=== PATIENT | female | born 1965 | race Caucasian/White ===

== ENCOUNTER → 2016-07-03 | Outpatient (CLI) | payer OTHER ==
[~2016-07-03] MED LIST: AMBIEN5 MG PO; AMOXICILLIN500 MG PO; ANTIVERT25 MG PO; ASPIRIN81 MG PO; BACTRIM DS 8001 TA1 PO; BRIN20TA PO; CELEXA20 MG PO; DAYPRO600 M1 PO; FERRATE325 MG PO; FISH OIL 10001000 MG PO; FLOMAX0.4 MG PO; HYDROCHLOROTH12.5 MG PO; HYDROCODONE BIT1 T11 PO; HYDRODIURIL25 MG PO; LASIX80 MG PO; LISINOPRIL5 MG PO; LOPRESSOR PO; MEDROL DOSEPAK4 MG PO; MIRALAX POWDER17 G1 PO; MOTRIN800 MG PO; PERCOCET 325 MG1 TA6 PO; POTASSIUM CHLO10 MEQ PO; POTASSIUM20 MEQ PO; PRILOSEC40 MG PO; PYRIDIUM100 MG PO; PYRIDIUM200 MG PO; ROBAXIN750 MG PO; ROBITUSSIN AC 10 MG/ PO; VIBRAMYCIN100 MG PO; VICO75300 PO; Wellbutrin Xl150 MG PO; XANAX1 MG PO; ZITHROMAX250 MG PO; ZOFRAN ODT4 MG SL; ZOFRAN4 MG PO; ZOLPIDEM10 M1 PO; [UNRECOGNIZED DRUG - REMARK]
[2016-07-03 15:01] LABS: BASO # 0.1 10*3/uL (0.0-0.1); BASO % 0.6 % (0.0-1.0); EOS # 0.2 10*3/uL (0.0-0.4); EOS % 1.6 % (1.0-4.0); HEMATOCRIT 45.8 % (37.0-47.0); HEMOGLOBIN 14.5 g/dl (12.0-16.0); IG # 0.1 10*3/uL (0.0-0.1); LYMPH # 2.7 10*3/uL (1.3-4.4); LYMPH % 24.9 % (27.0-41.0); MEAN CELL VOLUME 85.1 fl (81.0-99.0); MEAN CORPUSCULAR HGB CONC 31.7 g/dl (33.0-37.0); MEAN PLATELET VOLUME 9.7 fl (9.6-12.3); MONO # 0.8 10*3/uL (0.1-1.0); MONO % 7.1 % (3.0-9.0); NEUT # 7.1 10*3/uL (2.3-7.9); NEUT % 65.3 % (47.0-73.0); PLATELET COUNT AUTOMATED 302 10*3/uL (130-400); RED BLOOD COUNT 5.38 10*6/uL (4.10-5.10); RED CELL DISTRI WIDTH 14.7 % (0-14.5); WHITE BLOOD COUNT 10.8 10*3/uL (4.8-10.8)
[2016-07-03 15:03] LABS: HEMOGLOBIN A1c 5.2 % (4.8-5.6)
[2016-07-03 15:28] LABS: ALBUMIN 3.3 gm/dl (3.1-4.5); ALKALINE PHOSPHATASE 108 U/L (45-117); BILIRUBIN, TOTAL 0.3 mg/dl (0.2-1.0); BUN 8 mg/dl (7-24); CARBON DIOXIDE 27 mmol/L (21-32); CHLORIDE 105 mmol/L (98-107); EST GLOM FILT AFRICAN AMERICAN > 60 ml/min; GLUCOSE 84 mg/dL (65-99); IRON 59 ug/dL (50-170); IRON SATURATION 16 %; SGOT/AST 15 IU/L (3-35); SGPT/ALT 25 U/L (12-78); SODIUM 143 mmol/L (136-145); THYROID STIM HORMONE (HS) 0.884 uIU/ml (0.358-4.75); TOTAL PROTEIN 7.2 gm/dL (6.4-8.2); UIBC 309 ug/dL (110-365)
[2016-07-03 15:35] LABS: VITAMIN D, 25-HYDROXY 27.6 ng/mL (30-100)
[2016-07-03 15:38] LABS: FOLIC ACID > 24.00 ng/mL (>5.38)
== END | disposition home or self-care (01) ==
LOC: LAB 14:04
PROVIDERS: Surgery
DX: E66.01 Morbid (severe) obesity due to excess calories (principal)

== ENCOUNTER → 2016-12-02 | Outpatient (CLI) | payer OTHER | END | disposition home or self-care (01) | LOC: CARD 13:36 | DX: Z01.818 Encounter for other preprocedural examination (principal) ==

== ENCOUNTER → 2017-01-26 | Outpatient (CLI) | payer OTHER ==
[2017-01-27 07:05] LABS: HEPATITIS C VIRUS ANTIBODY 0.2 s/co (0.0-0.9)
[2017-01-28 01:06] LABS: LUPUS DRVVT 52.2 sec (0.0-47.0); PTT-LA 38.4 sec (0.0-51.9)
== END | disposition home or self-care (01) ==
LOC: LAB 12:55
PROVIDERS: Nurse Practitioner Family
DX: K76.9 Liver disease, unspecified (principal); R53.83 Other fatigue

== ENCOUNTER → 2017-02-11 | Outpatient (CLI) | payer OTHER | END | disposition home or self-care (01) | LOC: LAB 14:37 | DX: I10 Essential (primary) hypertension (principal); K76.9 Liver disease, unspecified ==

== ENCOUNTER → 2017-02-17 | Outpatient (CLI) | payer OTHER ==
[2017-02-17 14:08] LABS: BASO % 0.4 % (0.0-1.0); EOS # 0.2 10*3/uL (0.0-0.4); EOS % 1.7 % (1.0-4.0); HEMATOCRIT 42.5 % (37.0-47.0); HEMOGLOBIN 13.6 g/dl (12.0-16.0); LYMPH # 3.2 10*3/uL (1.3-4.4); LYMPH % 28.7 % (27.0-41.0); MEAN CELL VOLUME 83.8 fl (81.0-99.0); MEAN CORPUSCULAR HGB 26.8 pg (27.0-31.0); MEAN PLATELET VOLUME 9.5 fl (9.6-12.3); MONO # 0.8 10*3/uL (0.1-1.0); MONO % 7.2 % (3.0-9.0); NEUT # 6.9 10*3/uL (2.3-7.9); NEUT % 61.4 % (47.0-73.0); PLATELET COUNT AUTOMATED 291 10*3/uL (130-400); RED BLOOD COUNT 5.07 10*6/uL (4.10-5.10); RED CELL DISTRI WIDTH 15.7 % (0-14.5); WHITE BLOOD COUNT 11.2 10*3/uL (4.8-10.8)
== END | disposition home or self-care (01) ==
LOC: LAB 13:41
PROVIDERS: Internal Medicine Hematology & Oncology
DX: D72.829 Elevated white blood cell count, unspecified (principal)

== ENCOUNTER → 2017-04-22 | Outpatient (CLI) | payer OTHER | LOC: RAD 08:15 | DX: M40.294 Other kyphosis, thoracic region (principal); M47.894 Other spondylosis, thoracic region; M75.42 Impingement syndrome of left shoulder; M85.812 Other specified disorders of bone density and structure, left shoulder; M77.8 Other enthesopathies, not elsewhere classified ==

== ENCOUNTER → 2017-06-24 | Outpatient (CLI) | payer OTHER | END | disposition home or self-care (01) | LOC: MAMMO 06-23 15:40 | DX: Z12.31 Encounter for screening mammogram for malignant neoplasm of breast (principal) ==

== ENCOUNTER 2017-10-07 20:20 | Emergency (ER) | payer OTHER ==
[~2017-10-07] VITALS: Wt 103.4 kg
[2017-10-07] MEDS ORDERED: FLONASE ALLERG9.9 ML NAS (20:38)
[2017-10-07] MEDS ORDERED: AUGMENTIN 875875 MG PO (20:38)
== END 2017-10-07 20:59 | disposition home or self-care (01) ==
LOC: ED 20:20
DX: J01.10 Acute frontal sinusitis, unspecified (principal); H65.02 Acute serous otitis media, left ear; Z90.49 Acquired absence of other specified parts of digestive tract; Z98.890 Other specified postprocedural states; Z79.82 Long term (current) use of aspirin; Z79.899 Other long term (current) drug therapy; Z88.5 Allergy status to narcotic agent

== ENCOUNTER 2017-10-30 12:08 | Emergency (ER) | payer OTHER ==
[~2017-10-30] VITALS: Ht 154.9 cm; Wt 103.4 kg
[~2017-10-30 12:08] MED LIST changes: +AUGMENTIN 875875 MG PO; +FLONASE ALLERG9.9 ML NAS
[2017-10-30 12:38] LABS: BASO % 0.5 % (0.0-1.0); EOS # 0.2 10*3/uL (0.0-0.4); EOS % 2.2 % (1.0-4.0); HEMATOCRIT 43.1 % (37.0-47.0); HEMOGLOBIN 13.5 g/dl (12.0-16.0); LYMPH # 2.4 10*3/uL (1.3-4.4); LYMPH % 29.4 % (27.0-41.0); MEAN CELL VOLUME 85.7 fl (81.0-99.0); MEAN CORPUSCULAR HGB 26.8 pg (27.0-31.0); MEAN CORPUSCULAR HGB CONC 31.3 g/dl (33.0-37.0); MEAN PLATELET VOLUME 9.3 fl (9.6-12.3); MONO # 0.5 10*3/uL (0.1-1.0); MONO % 6.2 % (3.0-9.0); NEUT % 61.3 % (47.0-73.0); PLATELET COUNT AUTOMATED 221 10*3/uL (130-400); RED BLOOD COUNT 5.03 10*6/uL (4.10-5.10); RED CELL DISTRI WIDTH 15.1 % (0-14.5); WHITE BLOOD COUNT 8.1 10*3/uL (4.8-10.8)
[2017-10-30 12:57] LABS: ALBUMIN 3.7 gm/dl (3.1-4.5); ALKALINE PHOSPHATASE 101 U/L (45-117); BUN 12 mg/dl (7-24); CHLORIDE 102 mmol/L (98-107); CREATININE 0.71 mg/dL (0.55-1.02); POTASSIUM 3.7 mmol/L (3.5-5.1); SGOT/AST 18 IU/L (3-35); SGPT/ALT 23 U/L (12-78); SODIUM 139 mmol/L (136-145); TOTAL PROTEIN 7.2 gm/dL (6.4-8.2)
[2017-10-30 13:01] LABS: TROPONIN I < 0.015 ng/ml (<0.045)
[2017-10-30] MEDS ORDERED: PREDNISONE10 MG PO (13:38)
[2017-10-30] MEDS ORDERED: LEVOFLOXACIN500 MG PO (13:38)
[2017-10-30] MEDS ORDERED: CLARITIN10 MG PO (13:38)
[2017-10-30] MEDS ORDERED: ROBITUSSIN DM 105 ML PO (13:38)
== END 2017-10-30 13:42 | disposition home or self-care (01) ==
LOC: ED 12:08
PROVIDERS: Nurse Practitioner Family
DX: J18.9 Pneumonia, unspecified organism (principal); R03.0 Elevated blood-pressure reading, without diagnosis of hypertension; Z90.49 Acquired absence of other specified parts of digestive tract; Z98.890 Other specified postprocedural states; Z79.899 Other long term (current) drug therapy; Z79.82 Long term (current) use of aspirin; Z88.5 Allergy status to narcotic agent; Z88.8 Allergy status to other drugs, medicaments and biological substances

== ENCOUNTER 2017-11-02 12:44 | Emergency (ER) | payer OTHER ==
[~2017-11-02] VITALS: Ht 154.9 cm; Wt 103.4 kg
[~2017-11-02 12:44] MED LIST changes: +CLARITIN10 MG PO; +LEVOFLOXACIN500 MG PO; +PREDNISONE10 MG PO; +ROBITUSSIN DM 105 ML PO
[2017-11-02 14:03] LABS: BASO # 0.1 10*3/uL (0.0-0.1); BASO % 0.3 % (0.0-1.0); EOS # 0.1 10*3/uL (0.0-0.4); EOS % 0.4 % (1.0-4.0); HEMOGLOBIN 13.4 g/dl (12.0-16.0); LYMPH # 4.2 10*3/uL (1.3-4.4); LYMPH % 25.3 % (27.0-41.0); MEAN CELL VOLUME 85.2 fl (81.0-99.0); MEAN CORPUSCULAR HGB 27.2 pg (27.0-31.0); MEAN CORPUSCULAR HGB CONC 31.9 g/dl (33.0-37.0); MEAN PLATELET VOLUME 9.5 fl (9.6-12.3); MONO # 1.5 10*3/uL (0.1-1.0); MONO % 8.9 % (3.0-9.0); NEUT # 10.7 10*3/uL (2.3-7.9); NEUT % 64.3 % (47.0-73.0); PLATELET COUNT AUTOMATED 253 10*3/uL (130-400); RED BLOOD COUNT 4.93 10*6/uL (4.10-5.10); RED CELL DISTRI WIDTH 15.2 % (0-14.5); WHITE BLOOD COUNT 16.6 10*3/uL (4.8-10.8)
[2017-11-02 14:14] LABS: ALBUMIN 3.6 gm/dl (3.1-4.5); ALKALINE PHOSPHATASE 85 U/L (45-117); BUN 16 mg/dl (7-24); CHLORIDE 104 mmol/L (98-107); CREATININE 0.81 mg/dL (0.55-1.02); SGOT/AST 15 IU/L (3-35); SGPT/ALT 20 U/L (12-78); SODIUM 142 mmol/L (136-145)
[2017-11-02 14:15] LABS: TROPONIN I < 0.015 ng/ml (<0.045)
== END 2017-11-02 15:35 | disposition home or self-care (01) ==
LOC: ED 12:44
PROVIDERS: Emergency Medicine
DX: M54.9 Dorsalgia, unspecified (principal); F10.10 Alcohol abuse, uncomplicated; Z88.8 Allergy status to other drugs, medicaments and biological substances; Z79.82 Long term (current) use of aspirin; Z79.899 Other long term (current) drug therapy; Z90.49 Acquired absence of other specified parts of digestive tract

== ENCOUNTER → 2017-11-10 | Outpatient (CLI) | payer OTHER | LOC: RAD 10:16 | DX: M54.6 Pain in thoracic spine (principal); R07.81 Pleurodynia ==

== ENCOUNTER 2018-02-17 12:15 | Emergency (ER) | payer OTHER ==
[~2018-02-17] VITALS: Wt 110.2 kg
[~2018-02-17 12:15] MED LIST changes: -LISINOPRIL5 MG PO; +ZESTRIL10 MG PO
[2018-02-17] MEDS ORDERED: CEPHALEXIN500 M1 PO (12:56)
== END 2018-02-17 13:39 | disposition home or self-care (01) ==
LOC: ED 12:15
DX: S61.011A Laceration without foreign body of right thumb without damage to nail, initial encounter (principal); Z23 Encounter for immunization; Z88.8 Allergy status to other drugs, medicaments and biological substances; Z79.82 Long term (current) use of aspirin; Z79.899 Other long term (current) drug therapy; Z79.2 Long term (current) use of antibiotics; Z90.49 Acquired absence of other specified parts of digestive tract; W26.9XXA Contact with unspecified sharp object(s), initial encounter; Y93.G1 Activity, food preparation and clean up; Y92.89 Other specified places as the place of occurrence of the external cause; Y99.8 Other external cause status

== ENCOUNTER 2018-05-31 12:25 | Inpatient (IN) | payer OTHER ==
[~2018-05-31] VITALS: Ht 154.9 cm; Wt 126.1 kg
--- NOTE | ~2018-05-31 | EKG ---
[place], [place] ELECTROCARDIOGRAM REPORT NAME: JOE JONES UNIT #: [id number] ROOM: 427 DOCTOR: THANH DRAFT REPORT BIRTHDATE: [birth year] [facility] Test Date: 2018-05-31 Test Time: 12:37:16 Pat Name: JOE JONES Department: Room: 427 Gender: F Legal Support Assistant: SHAKIR : 1965 Requested By: NANCY GAINES Order Number: [id number] Reading MD: Eddie Bess MD Measurements Intervals [place] Rate: 82 P: 10 [place]: 181 QRS: 56 QRSD: 101 T: 56 QT: 398 QTc: 465 Interpretive Statements Sinus rhythm Electronically Signed On 05-31-2018 16:59:31 PST by Eddie Bess MD CM:EKGRPT:ELECTROCARDIOGRAM REPORT [id number] NANCY MIRANDA DRAFT REPORT NANCY GAINES DO
--- NOTE | ~2018-05-31 | CON ---
[place], [place] REPORT OF CONSULTATION NAME: JOE JONES UNIT #: [id number] ROOM: 427 DOCTOR: AMI VITAL MD BIRTHDATE: [birth year] DOS: 06/01/2018 REASON FOR CONSULTATION: Lightheadedness, near-syncope and chest discomfort. HISTORY OF PRESENT ILLNESS: The patient is a 53-year-old woman who has risk factors of hypertension, hyperlipidemia and previous cigarette abuse, but no history of significant coronary artery disease. 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 She stated that she felt a fluttering sensation in her chest, associated with a feeling of lightheadedness and dissociation from her surroundings. She felt that she was weak. She did become nauseous and diaphoretic. The episode lasted several minutes and then resolved spontaneously. She has had similar sensations intermittently over the last several weeks, but never lost consciousness. She has never had chest pain to speak of. She states that these episodes come and go without provocation, and there is nothing that she can do to make them better or worse. On the other hand, she does admit that she has been under considerable stress caring for her son who has medical issues, and when she is most stressed, she is most likely to have these spells. PAST MEDICAL HISTORY: Includes: 1. Hypertension. 2. Hyperlipidemia. 3. Depression. 4. Obesity. 5. Pneumonia. 6. Chronic back pain. 7. Status post cholecystectomy. REVIEW OF SYSTEMS: The patient denies diplopia, loss of vision or focal weakness. She does have the episodes described above where she feels dissociated from her surroundings, but denies loss of consciousness. She denies nausea or vomiting, although she may feel somewhat nauseous during these episodes. She denies fevers, chills, sweats or recent weight change. She denies any hemoptysis or hematemesis. She denies change in bowel or bladder habits, and denies blood in her stools or urine. She denies any skin rashes. She denies peripheral edema. She denies heat or cold intolerance, and denies polyuria or polydipsia. The remainder of the review of systems is negative except as noted above. MEDICATIONS: Prior to admission, alprazolam 1 mg b.i.d. p.r.n. and 1 mg at bedtime, aspirin 81 mg daily, Vraylar 3 mg at bedtime, lisinopril 10 mg at bedtime, meclizine 25 mg t.i.d. p.r.n. vertigo, omeprazole 40 mg daily, temazepam 30 mg at bedtime p.r.n. and Brintellix 20 mg daily. ALLERGIES: She lists allergies to SERTRALINE and MEPERIDINE. FAMILY HISTORY: Negative for early coronary artery disease, although there are family members who have had heart disease. There is a family history of type 2 diabetes mellitus. [place], [place] REPORT OF CONSULTATION NAME: JOE JONES UNIT #: [id number] ROOM: [facility] DOCTOR: AMI VITAL MD BIRTHDATE: [birth year] SOCIAL HISTORY: The patient is a former smoker. She drinks occasionally, but does not use illicit drugs. 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 PHYSICAL EXAMINATION: GENERAL: The patient is an overweight white female who is awake, alert and oriented. VITAL SIGNS: Pulse is 98 and regular, blood pressure is 125/81. She is afebrile. She weighs 126.1 kg and has a body mass index of 52.5. HEENT: Normocephalic and atraumatic. Extraocular muscles are intact. Sclerae are clear. Pupils are equal, round and react to light. The oral mucosa is moist. Tongue is midline. NECK: Supple. She has no jugular distention. Carotids are full. There are no bruits. She has no neck or supraclavicular masses, and no thyromegaly. LUNGS: Respirations are unlabored. Her chest is clear to auscultation and percussion. She has no presacral edema and no chest wall tenderness. CARDIOVASCULAR: Her heart has a regular rhythm. She has a soft S4 gallop, but no S3 or murmur. The PMI is not displaced. There is no precordial heave, lift or thrill. ABDOMEN: Obese, but otherwise benign without masses, tenderness, organomegaly or bruits. EXTREMITIES: Showed no edema. Peripheral pulses were palpable in the feet. LABORATORY DATA: Hemoglobin is 12.9, white count 9600, platelet count 235,000. Sodium 142, potassium 3.9, chloride 109, CO2 of 27, BUN 7, creatinine 0.53. Troponin levels were normal. IMPRESSIONS: 1. Episodic periods of lightheadedness, diaphoresis, nausea and fluttering sensations in her chest with a feeling of dissociation from her surroundings. Most likely, these represent vasovagal episodes. The patient does admit to significant life stresses and that she is most likely to be symptomatic when she is feeling stressed. Cardiac disease such as ischemia seems less likely. Arrhythmias may be contributing, but have not been documented during this hospitalization. 2. Hyperlipidemia. 3. Hypertension. 4. Morbid obesity. PLAN: We will proceed with an echocardiogram and pharmacologic myocardial perfusion study. If no structural or ischemic heart disease is found, then she may be discharged for further evaluation if needed as an outpatient. I would probably consider a 48-hour Holter monitoring and if that is not helpful, then extend it to a 30-day event recorder. At this point, however, I doubt that she has any significant cardiovascular disease. Therefore, risk factor modification only will be recommended. I thank the hospitalist physicians for asking our advice regarding her assessment. [place], [place] REPORT OF CONSULTATION NAME: JOE JONES UNIT #: [id number] ROOM: 427 DOCTOR: AMI VITAL MD BIRTHDATE: [birth year] AMI VITAL MD CM:CONSTR:REPORT OF CONSULTATION 46 06/02/18808 interface
--- NOTE | ~2018-05-31 | EKG ---
[place], [place] ELECTROCARDIOGRAM REPORT NAME: JOE JONES UNIT #: [id number] ROOM: 427 DOCTOR: THANH DRAFT REPORT BIRTHDATE: [birth year] [facility] Test Date: 2018-05-31 Test Time: 18:47:40 Pat Name: JOE JONES Department: Room: 427 Gender: F Transportation Aide: EKG.PA : 1965 Requested By: NANCY GAINES Order Number: [id number] Reading MD: Eddie Bess MD Measurements Intervals [place] Rate: 88 P: 42 [place]: 190 QRS: 63 QRSD: 107 T: 53 QT: 346 QTc: 419 Interpretive Statements Sinus rhythm Compared to ECG 05/31/2018 15:47:44 No significant changes Electronically Signed On 06-01-2018 17:51:00 PST by Eddie Bess MD CM:EKGRPT:ELECTROCARDIOGRAM REPORT [id number] NANCY MIRANDA DRAFT REPORT
--- NOTE | ~2018-05-31 | EKG ---
[place], [place] ELECTROCARDIOGRAM REPORT NAME: JOE JONES UNIT #: [id number] ROOM: 427 DOCTOR: THANH DRAFT REPORT BIRTHDATE: [birth year] [facility] Test Date: 2018-05-31 Test Time: 15:47:44 Pat Name: JOE JONES Department: Room: 427 Gender: F Pre Wave Assembler: EKG.VA : 1965 Requested By: NANCY GAINES Order Number: [id number] Reading MD: Eddie Bess MD Measurements Intervals [place] Rate: 83 P: 33 [place]: 188 QRS: 48 QRSD: 102 T: 52 QT: 397 QTc: 467 Interpretive Statements Sinus rhythm No change from earlier ECG this date Electronically Signed On 05-31-2018 17:13:32 PST by Eddie Bess MD CM:EKGRPT:ELECTROCARDIOGRAM REPORT [id number] NANCY MIRANDA DRAFT REPORT NANCY GAINES DO
--- NOTE | ~2018-05-31 | EKG ---
[place], [place] ELECTROCARDIOGRAM REPORT NAME: JOE JONES UNIT #: [id number] ROOM: 427 DOCTOR: THANH DRAFT REPORT BIRTHDATE: [birth year] [facility] Test Date: 2018-05-31 Test Time: 12:36:14 Pat Name: JOE JONES Department: Room: 427 Gender: F Certified Registered Nurse Practitioner: SHAKIR : 1965 Requested By: NANCY GAINES Order Number: [id number] Reading MD: Eddie Bess MD Measurements Intervals [place] Rate: 82 P: 0 [place]: QRS: 46 QRSD: 106 T: 40 QT: 397 QTc: 464 Interpretive Statements Normal sinus rhythm Marked baseline artifact makes interpretation difficult Baseline wander in lead(s) I,III,aVR,aVL,aVF Electronically Signed On 05-31-2018 16:59:12 PST by Eddie Bess MD CM:EKGRPT:ELECTROCARDIOGRAM REPORT [id number] NANCY MIRANDA DRAFT REPORT NANCY GAINES DO
[~2018-05-31 12:25] MED LIST changes: +CEPHALEXIN500 M1 PO
[2018-05-31 12:37] VITALS: BP 152/88
[2018-05-31 13:00] LABS: BASO % 0.4 % (0.0-1.0); EOS # 0.2 10*3/uL (0.0-0.4); EOS % 2.5 % (1.0-4.0); HEMATOCRIT 39.9 % (37.0-47.0); HEMOGLOBIN 12.7 g/dl (12.0-16.0); LYMPH # 2.2 10*3/uL (1.3-4.4); LYMPH % 25.9 % (27.0-41.0); MEAN CORPUSCULAR HGB 26.7 pg (27.0-31.0); MEAN CORPUSCULAR HGB CONC 31.8 g/dl (33.0-37.0); MEAN PLATELET VOLUME 9.1 fl (9.6-12.3); MONO # 0.6 10*3/uL (0.1-1.0); MONO % 7.4 % (3.0-9.0); NEUT # 5.4 10*3/uL (2.3-7.9); NEUT % 63.3 % (47.0-73.0); PLATELET COUNT AUTOMATED 244 10*3/uL (130-400); RED BLOOD COUNT 4.75 10*6/uL (4.10-5.10); RED CELL DISTRI WIDTH 15.9 % (0-14.5); WHITE BLOOD COUNT 8.5 10*3/uL (4.8-10.8)
[2018-05-31 13:10] LABS: ACT PARTIAL THROMBO TIME 26.4 SECONDS (20.8-31.5); INTERNATIONAL NORM RATIO 0.9 (2.0-3.5)
[2018-05-31 13:16] LABS: ALBUMIN 2.9 gm/dl (3.1-4.5); ALKALINE PHOSPHATASE 109 U/L (45-117); BUN 7 mg/dl (7-24); CHLORIDE 105 mmol/L (98-107); CREATININE 0.68 mg/dL (0.55-1.02); SGOT/AST 14 IU/L (3-35); SGPT/ALT 15 U/L (12-78); SODIUM 138 mmol/L (136-145); TOTAL PROTEIN 6.5 gm/dL (6.4-8.2)
[2018-05-31 13:25] LABS: TROPONIN I < 0.015 ng/ml (<0.045)
[2018-05-31 14:00] VITALS: BP 134/82
[2018-05-31 16:00] VITALS: BP 122/70; BP 138/86
[2018-05-31] MEDS ORDERED: VRAYLAR3 MG PO (16:56)
[2018-05-31] MEDS ORDERED: RESTORIL30 M1 PO (16:57)
[2018-05-31 20:00] VITALS: BP 113/63
[2018-06-01] VITALS: BP 101/55
[2018-06-01 07:25] LABS: BASO # 0.1 10*3/uL (0.0-0.1); BASO % 0.6 % (0.0-1.0); EOS # 0.3 10*3/uL (0.0-0.4); EOS % 2.8 % (1.0-4.0); HEMATOCRIT 41.4 % (37.0-47.0); HEMOGLOBIN 12.9 g/dl (12.0-16.0); LYMPH # 2.1 10*3/uL (1.3-4.4); LYMPH % 22.2 % (27.0-41.0); MEAN CELL VOLUME 84.8 fl (81.0-99.0); MEAN CORPUSCULAR HGB 26.4 pg (27.0-31.0); MEAN CORPUSCULAR HGB CONC 31.2 g/dl (33.0-37.0); MONO # 0.7 10*3/uL (0.1-1.0); NEUT # 6.4 10*3/uL (2.3-7.9); PLATELET COUNT AUTOMATED 235 10*3/uL (130-400); RED BLOOD COUNT 4.88 10*6/uL (4.10-5.10); RED CELL DISTRI WIDTH 16.2 % (0-14.5); WHITE BLOOD COUNT 9.6 10*3/uL (4.8-10.8)
[2018-06-01 07:40] LABS: ALBUMIN 2.8 gm/dl (3.1-4.5); ALKALINE PHOSPHATASE 99 U/L (45-117); BUN 7 mg/dl (7-24); CHLORIDE 109 mmol/L (98-107); CHOLESTEROL 210 mg/dL (<200); CREATININE 0.53 mg/dL (0.55-1.02); HDL CHOLESTEROL 60 mg/dl (40-60); LDL CHOLESTEROL 132 mg/dL (9-159); PHOSPHOROUS 3.6 mg/dL (2.5-4.9); POTASSIUM 3.9 mmol/L (3.5-5.1); SGOT/AST 8 IU/L (3-35); SGPT/ALT 13 U/L (12-78); SODIUM 142 mmol/L (136-145); TOTAL PROTEIN 6.3 gm/dL (6.4-8.2); TRIGLYCERIDES 90 mg/dl (<150); VLDL CHOLESTEROL 18 mg/dL (6-40)
[2018-06-01 07:45] LABS: THYROID STIM HORMONE (HS) 0.688 uIU/ml (0.358-4.75)
[2018-06-01 08:00] VITALS: BP 100/60
[2018-06-01 08:10] LABS: INTERNATIONAL NORM RATIO 0.9 (2.0-3.5)
[2018-06-01 09:16] LABS: VITAMIN D, 25-HYDROXY 21.6 ng/mL (30-100)
[2018-06-01 13:28] VITALS: BP 131/78
[2018-06-01 16:00] VITALS: BP 125/81
== END 2018-06-01 17:06 | disposition home or self-care (01) | DRG 880 ==
LOC: ED 12:25 → EDHOLD 15:12 → 4E 15:12
PROVIDERS: Emergency Medicine; Student in an Organized Health Care Education/Training Program
PROC: 4A02XM4 Measurement of Cardiac Total Activity, External Approach (ICD-10-PCS; principal; 2018-06-01)
PROC: 3E073KZ Introduction of Other Diagnostic Substance into Coronary Artery, Percutaneous Approach (ICD-10-PCS; 2018-06-01)
DX: F41.9 Anxiety disorder, unspecified (principal); E43 Unspecified severe protein-calorie malnutrition; Z68.43 Body mass index [BMI] 50.0-59.9, adult; E78.5 Hyperlipidemia, unspecified; I10 Essential (primary) hypertension; E66.01 Morbid (severe) obesity due to excess calories; G89.29 Other chronic pain; M54.9 Dorsalgia, unspecified; E87.8 Other disorders of electrolyte and fluid balance, not elsewhere classified; E83.41 Hypermagnesemia; F32.9 Major depressive disorder, single episode, unspecified; Z88.8 Allergy status to other drugs, medicaments and biological substances; Z90.49 Acquired absence of other specified parts of digestive tract; Z82.49 Family history of ischemic heart disease and other diseases of the circulatory system; Z87.442 Personal history of urinary calculi; Z87.01 Personal history of pneumonia (recurrent); Z83.3 Family history of diabetes mellitus; Z79.82 Long term (current) use of aspirin

== ENCOUNTER 2018-08-08 11:57 | Emergency (ER) | payer OTHER ==
[~2018-08-08] VITALS: Ht 154.9 cm; Wt 111.6 kg
[~2018-08-08 11:57] MED LIST changes: +RESTORIL30 M1 PO; +VRAYLAR3 MG PO
== END 2018-08-08 14:33 | disposition home or self-care (01) ==
LOC: ED 11:57
DX: M72.2 Plantar fascial fibromatosis (principal); I10 Essential (primary) hypertension; Z88.8 Allergy status to other drugs, medicaments and biological substances; Z79.82 Long term (current) use of aspirin; Z79.899 Other long term (current) drug therapy; Z04.9 Encounter for examination and observation for unspecified reason; Z87.891 Personal history of nicotine dependence

== ENCOUNTER 2019-01-13 05:03 | Emergency (ER) | payer OTHER ==
[~2019-01-13] VITALS: Ht 165.1 cm; Wt 121.1 kg
[2019-01-13] MEDS ORDERED: ONDANSETRON4 MG SL (05:32)
[2019-01-13] MEDS ORDERED: FLONASE ALLERG9.9 ML NAS (05:32)
[2019-01-13] MEDS ORDERED: CLARITIN10 MG PO (05:36)
== END 2019-01-13 05:50 | disposition home or self-care (01) ==
LOC: ED 05:03
DX: R09.81 Nasal congestion (principal); R11.0 Nausea; R53.1 Weakness; R68.83 Chills (without fever); R06.2 Wheezing; E78.5 Hyperlipidemia, unspecified; I10 Essential (primary) hypertension; E66.01 Morbid (severe) obesity due to excess calories; Z87.442 Personal history of urinary calculi; Z79.899 Other long term (current) drug therapy; Z79.82 Long term (current) use of aspirin; Z88.8 Allergy status to other drugs, medicaments and biological substances; Z88.6 Allergy status to analgesic agent; Z87.891 Personal history of nicotine dependence

== ENCOUNTER 2019-07-18 11:07 | Inpatient (IN) | payer OTHER ==
[~2019-07-18] VITALS: Ht 157.4 cm; Wt 103.2 kg
[~2019-07-18 11:07] MED LIST changes: +ONDANSETRON4 MG SL
[2019-07-18 11:20] VITALS: BP 151/99
[2019-07-18 12:17] LABS: BASO # 0.1 10*3/uL (0.0-0.1); BASO % 0.8 % (0.0-1.0); EOS # 0.1 10*3/uL (0.0-0.4); EOS % 1.2 % (1.0-4.0); HEMATOCRIT 46.8 % (37.0-47.0); HEMOGLOBIN 15.1 g/dl (12.0-16.0); LYMPH % 29.8 % (27.0-41.0); MEAN CELL VOLUME 85.6 fl (81.0-99.0); MEAN CORPUSCULAR HGB 27.6 pg (27.0-31.0); MEAN CORPUSCULAR HGB CONC 32.3 g/dl (33.0-37.0); MEAN PLATELET VOLUME 10.3 fl (9.6-12.3); MONO # 0.6 10*3/uL (0.1-1.0); MONO % 8.3 % (3.0-9.0); NEUT # 3.9 10*3/uL (2.3-7.9); NEUT % 59.4 % (47.0-73.0); PLATELET COUNT AUTOMATED 234 10*3/uL (130-400); RED BLOOD COUNT 5.47 10*6/uL (4.10-5.10); RED CELL DISTRI WIDTH 14.1 % (0-14.5); WHITE BLOOD COUNT 6.6 10*3/uL (4.8-10.8)
[2019-07-18 12:26] LABS: ACT PARTIAL THROMBO TIME 30.9 SECONDS (20.0-32.1); INTERNATIONAL NORM RATIO 1.1 (2.0-3.5)
[2019-07-18 12:32] LABS: ALBUMIN 3.6 gm/dl (3.1-4.5); ALKALINE PHOSPHATASE 112 U/L (45-117); BUN 4 mg/dl (7-24); CHLORIDE 109 mmol/L (98-107); CREATININE 0.77 mg/dL (0.55-1.02); POTASSIUM 3.4 mmol/L (3.5-5.1); SGOT/AST 24 IU/L (3-35); SGPT/ALT 26 U/L (12-78); SODIUM 144 mmol/L (136-145)
--- NOTE | 2019-07-18 12:47 | NUR ---
PHYLLIS GIVEN BY LUCINA Olmstead RN
[2019-07-18 12:51] LABS: TROPONIN I < 0.015 ng/ml (<0.045)
[2019-07-18 13:16] LABS: BILIRUBIN NEGATIVE (NEGATIVE); BLOOD TRACE-INTACT (NEGATIVE); CLARITY CLOUDY (CLEAR); COLOR YELLOW (YELLOW); GLUCOSE NEGATIVE (NEGATIVE); KETONE 1+ (NEGATIVE); SPECIFIC GRAVITY 1.015 (1.005-1.030)
[2019-07-18 13:17] LABS: PH 6.5 (5.0-9.0)
[2019-07-18 13:18] LABS: BACTERIA 4+; CALCIUM OXALATE CRYSTALS 1+; LEUKO ESTERASE 3+ (NEGATIVE); NITRITE POSITIVE (NEGATIVE); WBC TNTC wbc/hpf (0-5)
--- NOTE | 2019-07-18 13:41 | NUR ---
PT RESTING IN BED WITH AT BEDSIDE. STATES SHE IS FEELING A LITTLE BETTER. DENIES THE NEED FOR ANYTHING AT THIS TIME. CALL LIGHT WITHIN REACH.
[2019-07-18 14:48] VITALS: BP 145/74
--- NOTE | 2019-07-18 15:12 | NUR ---
[place] 54, admitted to , under the services of SUNDAY Lee DO with a diagnosis of CHEST PAIN, UTI. Chief complaint is MULTIPLE COMPLAINTS. Patient arrived via ambulatory from ER. Monitor applied. Initial assessment completed. Vital signs taken and recorded. SUNDAY LEE DO notified of admission to AST Orders received. See assessment for past medical history, medications and allergies. Patient and/or family oriented to unit. [facility] 43 visitation policy reviewed. Clothing/patient valuable form completed. JAIME RUSSELL.
--- NOTE | 2019-07-18 15:31 | NUR ---
IN TO SEE PATIENT.
[2019-07-18 16:00] VITALS: BP 132/72
[2019-07-18] MEDS ORDERED: XANAX1 MG PO (16:18)
[2019-07-18] MEDS ORDERED: AMITRIPTYLINE150 M1 PO (16:19)
[2019-07-18] MEDS ORDERED: VITAMIN D10000 UNIT PO (16:20)
[2019-07-18] MEDS ORDERED: CYMBALTA60 MG PO (16:21)
[2019-07-18] MEDS ORDERED: ABILIFY10 MG PO (16:21)
--- NOTE | 2019-07-18 19:00 | NUR ---
ASSUMED CARE FOR THIS PT AT THIS TIME. PT RESTING QUIETLY IN BED. DENIES CP/SOB. C/O NAUSEA/GENERAL WEAKNESS/LETHARGY. CALL LIGHT IN REACH.
[2019-07-18 20:00] VITALS: BP 141/73
--- NOTE | 2019-07-18 20:04 | NUR ---
PT MEDICATED W/ZOFRAN FOR C/O NAUSEA. WILL MONITOR FOR EFFECTIVENESS.
--- NOTE | 2019-07-18 20:08 | NUR ---
DR. PEDRO NOTIFIED OF PT'S MED REC UTD AND PT REQUESTING HS MEDS FOR TONIGHT. TO CONTINUE HOME MEDS.
--- NOTE | 2019-07-18 21:36 | NUR ---
PT MEDICATED W/RESTORIL PER REQUEST TO HELP PROMOTE SLEEP. CRACKERS AND PEANUT BUTTER GIVEN TO PT FOR HS SNACK. CALL LIGHT IN REACH.
--- NOTE | 2019-07-18 22:00 | NUR ---
PT STATES THAT ZOFRAN WAS EFFECTIVE FOR NAUSEA.
--- NOTE | 2019-07-18 23:00 | NUR ---
PRN RESTORIL EFFECTIVE. PT RESTING QUIETLY IN BED W/EYES CLOSED.
[2019-07-19] VITALS: BP 147/71
--- NOTE | 2019-07-19 04:29 | NUR ---
24 HR chart check completed.
[2019-07-19 07:06] LABS: BASO % 0.5 % (0.0-1.0); EOS # 0.1 10*3/uL (0.0-0.4); EOS % 2.2 % (1.0-4.0); HEMATOCRIT 40.9 % (37.0-47.0); HEMOGLOBIN 12.9 g/dl (12.0-16.0); LYMPH # 2.3 10*3/uL (1.3-4.4); LYMPH % 34.9 % (27.0-41.0); MEAN CELL VOLUME 86.7 fl (81.0-99.0); MEAN CORPUSCULAR HGB 27.3 pg (27.0-31.0); MEAN CORPUSCULAR HGB CONC 31.5 g/dl (33.0-37.0); MEAN PLATELET VOLUME 10.5 fl (9.6-12.3); MONO # 0.6 10*3/uL (0.1-1.0); MONO % 9.3 % (3.0-9.0); NEUT # 3.4 10*3/uL (2.3-7.9); NEUT % 52.8 % (47.0-73.0); PLATELET COUNT AUTOMATED 199 10*3/uL (130-400); RED BLOOD COUNT 4.72 10*6/uL (4.10-5.10); RED CELL DISTRI WIDTH 13.9 % (0-14.5); WHITE BLOOD COUNT 6.4 10*3/uL (4.8-10.8)
--- NOTE | 2019-07-19 07:30 | NUR ---
PT RESTING IN BED. VOICES NO CONCERNS AT THIS TIME. RESPS EASY AND NON LABORED. NO S/S OF DISTRESS NOTED. VSS. WHITE BOARD UPDATED. CALL LIGHT WITHIN REACH. FAMILY AT BEDSIDE
[2019-07-19 07:41] LABS: ALBUMIN 3.1 gm/dl (3.1-4.5); ALKALINE PHOSPHATASE 91 U/L (45-117); BUN 4 mg/dl (7-24); CHLORIDE 113 mmol/L (98-107); PHOSPHOROUS 3.7 mg/dL (2.5-4.9); POTASSIUM 3.1 mmol/L (3.5-5.1); SGOT/AST 18 IU/L (3-35); SGPT/ALT 22 U/L (12-78); SODIUM 145 mmol/L (136-145); TOTAL PROTEIN 5.8 gm/dL (6.4-8.2)
[2019-07-19 07:48] LABS: FREE T4 0.82 ng/dl (0.76-1.46)
[2019-07-19 07:51] LABS: VITAMIN D, 25-HYDROXY 43.5 ng/mL (30-100)
[2019-07-19 08:00] VITALS: BP 120/78
--- NOTE | 2019-07-19 08:57 | NUR ---
Shift chart check completed.
--- NOTE | 2019-07-19 09:00 | NUR ---
Hydrodynamics Teacher in to talk to patient. Patient states lives at [facility] with and son. There are no steps in the home. Physician: andriy light Pharmacy: [facility] [place] health services: none Patient's level of ADLs: INDEPENDENT Patient has working utilities: all working DME: none Follow-up physician's appointment after d/c: will be made by hospitalist nurse director upon discharge Does patient want to access PORTAL?: no Discharge plan discussed with patient, she states she lives at home with family, she is independent in adls and ambulation, she states she will return home when medically stable and denies any home needs. SHANNA HERRERA
--- NOTE | 2019-07-19 11:55 | NUR ---
Nutritional Support Services Note: Discussed recent gastric bypass surgery and weight loss w/ pt. Encouraged pt to increase fluid intake. Discussed vitamins and recommend liquid multivitmain daily, encouraged small portions, and small high protein PO snacks between meals. Will follow if needed. Encouraged healthy eating. NEFTALI Collins architect internship
[2019-07-19 12:00] VITALS: BP 156/92
--- NOTE | 2019-07-19 14:00 | NUR ---
ASKED PHARMACY TO SEND UP RECEPHIN
--- NOTE | 2019-07-19 14:45 | NUR ---
ASKED PHARMACY AGAIN TO SEND UP GARY
[2019-07-19 16:00] VITALS: BP 137/84
[2019-07-19 20:00] VITALS: BP 132/85
--- NOTE | 2019-07-19 21:13 | NUR ---
MEDICATED WITH RESTORIL FOR INSOMNIA.
[2019-07-20] VITALS: BP 143/83
--- NOTE | 2019-07-20 01:15 | NUR ---
UP WITH ASSISTANCE OF 2 TO BATHROOM. SOMEWHAT UNSTEADY. ASSISTED PATIENT BACK TO BED ASSIST OF 2. BED ALARM PUT ON FOR PT. SAFETY. CALL LIGHT WITHIN REACH.
--- NOTE | 2019-07-20 01:55 | NUR ---
PT. C/O BEING UNABLE TO SLEEP & WANTS TO LEAVE. SPOKE TO PATIENT & CONVINCED HER TO REMAIN IN HOSPITAL UNTIL TOMORROW MORNING. PT. STATED THAT SHE WOULD STAY UNTIL MORNING.
--- NOTE | 2019-07-20 04:00 | NUR ---
RESTING IN BED WITH EYES CLOSED. CALL LIGHT WITHIN REACH.
[2019-07-20 08:00] VITALS: BP 153/75
[2019-07-20] MEDS ORDERED: PRINIVIL10 MG PO (08:00)
[2019-07-20] MEDS ORDERED: CEPHALEXIN500 M1 PO (08:01)
[2019-07-20] MEDS ORDERED: [UNRECOGNIZED DRUG - OTHER] PO (08:05)
--- NOTE | 2019-07-20 09:00 | NUR ---
case management visits with patient, she states she will return home when medically stable and denies any home needs
--- NOTE | 2019-07-20 09:41 | NUR ---
Discharge instructions reviewed with patient/family. Patient receptive and verbalizes understanding. Follow-up care arranged. Written instructions given to patient/family. HISSOM,CHUCHO The Discharge Plan/Instructions have been completed.
== END 2019-07-20 09:41 | disposition home or self-care (01) | DRG 203 ==
LOC: ED 11:07 → 4E 14:20 → EDHOLD 14:20 → 4E 14:47
PROVIDERS: Emergency Medicine; Registered Nurse; ADMIT Family Medicine
DX: R07.89 Other chest pain (principal); E86.0 Dehydration; N30.00 Acute cystitis without hematuria; A08.4 Viral intestinal infection, unspecified; I10 Essential (primary) hypertension; F32.9 Major depressive disorder, single episode, unspecified; E44.0 Moderate protein-calorie malnutrition; E87.6 Hypokalemia; E87.8 Other disorders of electrolyte and fluid balance, not elsewhere classified; E78.5 Hyperlipidemia, unspecified; B96.20 Unspecified Escherichia coli [E. coli] as the cause of diseases classified elsewhere; Z68.41 Body mass index [BMI] 40.0-44.9, adult; Z98.84 Bariatric surgery status; Z88.8 Allergy status to other drugs, medicaments and biological substances; Z90.49 Acquired absence of other specified parts of digestive tract; Z87.891 Personal history of nicotine dependence; Z83.3 Family history of diabetes mellitus; Z82.49 Family history of ischemic heart disease and other diseases of the circulatory system; Z80.8 Family history of malignant neoplasm of other organs or systems; Z79.899 Other long term (current) drug therapy

== ENCOUNTER 2019-09-15 13:53 | Emergency (ER) | payer OTHER ==
[~2019-09-15] VITALS: Ht 154.9 cm; Wt 93.4 kg
[~2019-09-15 13:53] MED LIST changes: +ABILIFY10 MG PO; +AMITRIPTYLINE150 M1 PO; +CYMBALTA60 MG PO; +PRINIVIL10 MG PO; +VITAMIN D10000 UNIT PO; +[UNRECOGNIZED DRUG - OTHER] PO
[2019-09-15 14:45] LABS: BASO % 0.4 % (0.0-1.0); EOS # 0.2 10*3/uL (0.0-0.4); EOS % 2.5 % (1.0-4.0); HEMATOCRIT 45.5 % (37.0-47.0); HEMOGLOBIN 14.9 g/dl (12.0-16.0); LYMPH # 2.5 10*3/uL (1.3-4.4); LYMPH % 27.9 % (27.0-41.0); MEAN CELL VOLUME 82.9 fl (81.0-99.0); MEAN CORPUSCULAR HGB 27.1 pg (27.0-31.0); MEAN CORPUSCULAR HGB CONC 32.7 g/dl (33.0-37.0); MEAN PLATELET VOLUME 10.5 fl (9.6-12.3); MONO # 0.7 10*3/uL (0.1-1.0); MONO % 7.3 % (3.0-9.0); NEUT # 5.5 10*3/uL (2.3-7.9); NEUT % 61.8 % (47.0-73.0); PLATELET COUNT AUTOMATED 269 10*3/uL (130-400); RED BLOOD COUNT 5.49 10*6/uL (4.10-5.10); RED CELL DISTRI WIDTH 14.6 % (0-14.5); WHITE BLOOD COUNT 8.9 10*3/uL (4.8-10.8)
[2019-09-15 14:55] LABS: ACT PARTIAL THROMBO TIME 29.6 SECONDS (20.0-32.1)
[2019-09-15 15:01] LABS: ALKALINE PHOSPHATASE 104 U/L (45-117); BUN 5 mg/dl (7-24); CHLORIDE 110 mmol/L (98-107); CREATININE 0.55 mg/dL (0.55-1.02); LDH 142 U/L (84-246); POTASSIUM 3.2 mmol/L (3.5-5.1); SGOT/AST 19 IU/L (3-35); SGPT/ALT 18 U/L (12-78); SODIUM 142 mmol/L (136-145); TOTAL PROTEIN 6.3 gm/dL (6.4-8.2); TROPONIN I < 0.015 ng/ml (<0.045)
[2019-09-15 16:06] LABS: BILIRUBIN NEGATIVE (NEGATIVE); BLOOD NEGATIVE (NEGATIVE); CLARITY SL CLOUDY (CLEAR); COLOR YELLOW (YELLOW); GLUCOSE NEGATIVE (NEGATIVE); KETONE NEGATIVE (NEGATIVE); LEUKO ESTERASE 1+ (NEGATIVE); NITRITE NEGATIVE (NEGATIVE); SPECIFIC GRAVITY 1.005 (1.005-1.030)
[2019-09-15 16:13] LABS: BACTERIA 2+; CALCIUM OXALATE CRYSTALS TR; EPITHELIAL CELLS 15-20; MUCOUS TRACE; RBC 0-2 rbc/hpf (0-2)
== END 2019-09-15 16:25 | disposition home or self-care (01) ==
LOC: ED 13:53
PROVIDERS: Emergency Medicine
DX: R53.83 Other fatigue (principal); R53.1 Weakness; R42 Dizziness and giddiness; R51 Headache; R11.0 Nausea; E87.6 Hypokalemia; R10.12 Left upper quadrant pain; M54.2 Cervicalgia; R55 Syncope and collapse; M79.603 Pain in arm, unspecified; R39.12 Poor urinary stream; E78.5 Hyperlipidemia, unspecified; I10 Essential (primary) hypertension; Z87.891 Personal history of nicotine dependence; Z79.899 Other long term (current) drug therapy; Z88.8 Allergy status to other drugs, medicaments and biological substances; Z98.84 Bariatric surgery status

== ENCOUNTER 2019-11-05 10:42 | Inpatient (IN) | payer OTHER ==
[2019-11-05] VITALS (7 sets, daily range): BP systolic 121–180; BP diastolic 69–98
[~2019-11-05] VITALS: Ht 154.9 cm; Wt 94.3 kg
[2019-11-05 11:07] LABS: BASO # 0.1 10*3/uL (0.0-0.1); BASO % 0.7 % (0.0-1.0); EOS # 0.2 10*3/uL (0.0-0.4); EOS % 1.8 % (1.0-4.0); HEMATOCRIT 47.4 % (37.0-47.0); LYMPH # 3.1 10*3/uL (1.3-4.4); LYMPH % 26.8 % (27.0-41.0); MEAN CELL VOLUME 85.4 fl (81.0-99.0); MEAN CORPUSCULAR HGB 27.6 pg (27.0-31.0); MEAN CORPUSCULAR HGB CONC 32.3 g/dl (33.0-37.0); MEAN PLATELET VOLUME 9.5 fl (9.6-12.3); MONO # 0.8 10*3/uL (0.1-1.0); MONO % 7.2 % (3.0-9.0); NEUT # 7.4 10*3/uL (2.3-7.9); NEUT % 63.1 % (47.0-73.0); PLATELET COUNT AUTOMATED 349 10*3/uL (130-400); RED BLOOD COUNT 5.55 10*6/uL (4.10-5.10); RED CELL DISTRI WIDTH 16.1 % (0-14.5); WHITE BLOOD COUNT 11.7 10*3/uL (4.8-10.8)
--- NOTE | 2019-11-05 11:20 | NUR ---
PT STATES "MY PAIN IN MY BACK/CHEST HAS EASED UP FROM THE NITRO TAB."
[2019-11-05 11:23] LABS: ALBUMIN 3.6 gm/dl (3.1-4.5); ALKALINE PHOSPHATASE 139 U/L (45-117); BUN 11 mg/dl (7-24); CHLORIDE 111 mmol/L (98-107); CREATININE 0.68 mg/dL (0.55-1.02); POTASSIUM 3.3 mmol/L (3.5-5.1); SGOT/AST 19 IU/L (3-35); SGPT/ALT 32 U/L (12-78); SODIUM 142 mmol/L (136-145)
[2019-11-05 11:28] LABS: TROPONIN I < 0.015 ng/ml (<0.045)
[2019-11-05 11:53] LABS: ACT PARTIAL THROMBO TIME 29.1 SECONDS (20.0-32.1)
[2019-11-05] MEDS ORDERED: HYDROXYZINE PAM50 MG PO (13:01)
[2019-11-05] MEDS ORDERED: VENLAFAXINE HYD75 MG PO (13:02)
--- NOTE | 2019-11-05 13:08 | NUR ---
A 54, admitted to 5E, under the services of SUNDAY Lee DO with a diagnosis of CHEST PAIN. Chief complaint is CHEST PAIN. Patient arrived via bed from ER. Monitor applied. Initial assessment completed. Vital signs taken and recorded. SUNDAY ELE DO notified of admission to the unit. Orders received. See assessment for past medical history, medications and allergies. Patient and/or family oriented to unit. [facility] visitation policy reviewed. Clothing/patient valuable form completed. CECIL JOHN
--- NOTE | 2019-11-05 13:20 | NUR ---
NOTIFIED DR REYNA OF NEW CONSULT FOR CHEST PAIN. ORDER RECIEVED.
--- NOTE | 2019-11-05 13:30 | NUR ---
NOTIFIED DR REILLY OF HOME MED RECONCILIATION.
--- NOTE | 2019-11-05 19:00 | NUR ---
PATIENT VOICED NO COMPLAINTS. NO DISTRESS NOTED. CALL LIGHT WITHIN REACH
--- NOTE | 2019-11-05 20:00 | NUR ---
NO DISTRESS NOTED. PATIENT ASLEEP, EYES CLOSED. RESP ARE ERND ON ROOM AIR. CALL LIGHT WITHIN REACH
--- NOTE | 2019-11-05 20:46 | NUR ---
PATIENT MEDICATED WITH RESTORIL FOR INSOMNIA. WILL MONITOR
[2019-11-06] VITALS: BP 115/74
[2019-11-06 06:27] LABS: BASO # 0.1 10*3/uL (0.0-0.1); BASO % 0.5 % (0.0-1.0); EOS # 0.2 10*3/uL (0.0-0.4); EOS % 1.7 % (1.0-4.0); LYMPH # 3.1 10*3/uL (1.3-4.4); LYMPH % 28.5 % (27.0-41.0); MEAN CELL VOLUME 86.5 fl (81.0-99.0); MEAN CORPUSCULAR HGB 27.6 pg (27.0-31.0); MEAN CORPUSCULAR HGB CONC 31.9 g/dl (33.0-37.0); MEAN PLATELET VOLUME 9.6 fl (9.6-12.3); MONO # 0.8 10*3/uL (0.1-1.0); NEUT # 6.7 10*3/uL (2.3-7.9); NEUT % 61.9 % (47.0-73.0); PLATELET COUNT AUTOMATED 274 10*3/uL (130-400); RED BLOOD COUNT 4.97 10*6/uL (4.10-5.10); RED CELL DISTRI WIDTH 16.2 % (0-14.5); WHITE BLOOD COUNT 10.9 10*3/uL (4.8-10.8)
[2019-11-06 06:49] LABS: ACT PARTIAL THROMBO TIME 29.1 SECONDS (20.0-32.1)
[2019-11-06 06:53] LABS: ALBUMIN 3.1 gm/dl (3.1-4.5); ALKALINE PHOSPHATASE 126 U/L (45-117); BUN 9 mg/dl (7-24); CHLORIDE 109 mmol/L (98-107); CHOLESTEROL 162 mg/dL (<200); CREATININE 0.52 mg/dL (0.55-1.02); FREE T4 1.02 ng/dl (0.76-1.46); HDL CHOLESTEROL 37 mg/dl (40-60); LDL CHOLESTEROL 100 mg/dL (9-159); POTASSIUM 3.7 mmol/L (3.5-5.1); SGOT/AST 17 IU/L (3-35); SGPT/ALT 27 U/L (12-78); SODIUM 143 mmol/L (136-145); TOTAL PROTEIN 6.1 gm/dL (6.4-8.2); TRIGLYCERIDES 125 mg/dl (<150); VLDL CHOLESTEROL 25 mg/dL (6-40)
[2019-11-06 06:58] LABS: THYROID STIM HORMONE (HS) 0.368 uIU/ml (0.358-4.75)
[2019-11-06 07:14] LABS: VITAMIN D, 25-HYDROXY 34.9 ng/mL (30-100)
[2019-11-06 12:00] VITALS: BP 123/72
--- NOTE | 2019-11-06 13:38 | NUR ---
XANAX 1 MG GIVEN FOR C/O ANXIETY.
[2019-11-06 16:00] VITALS: BP 104/59; BP 109/66
[2019-11-06 20:00] VITALS: BP 107/59
--- NOTE | 2019-11-06 20:30 | NUR ---
PATIENT VOICED NO COMPLAINTS. NO OVERT DISTRESS NOTED, RESP ARE EASY AND REGULAR. PATIENT IS AWARE THAT SHE IS NPO AFTER MIDNIGHT. CALL LIGHT WITHIN REACH
--- NOTE | 2019-11-06 21:08 | NUR ---
PATIENT MEDICATED WITH RESTORIL FOR C/O INSOMNIA WILL MONITOR.
[2019-11-07] VITALS: BP 101/60
[2019-11-07 06:30] LABS: BASO # 0.1 10*3/uL (0.0-0.1); BASO % 0.5 % (0.0-1.0); EOS # 0.2 10*3/uL (0.0-0.4); EOS % 1.8 % (1.0-4.0); LYMPH # 3.1 10*3/uL (1.3-4.4); MEAN CORPUSCULAR HGB 28.2 pg (27.0-31.0); MEAN CORPUSCULAR HGB CONC 32.4 g/dl (33.0-37.0); MEAN PLATELET VOLUME 9.8 fl (9.6-12.3); MONO # 0.8 10*3/uL (0.1-1.0); MONO % 8.1 % (3.0-9.0); NEUT # 6.2 10*3/uL (2.3-7.9); PLATELET COUNT AUTOMATED 279 10*3/uL (130-400); RED BLOOD COUNT 4.71 10*6/uL (4.10-5.10); RED CELL DISTRI WIDTH 16.4 % (0-14.5); WHITE BLOOD COUNT 10.4 10*3/uL (4.8-10.8)
[2019-11-07 06:58] LABS: BUN 8 mg/dl (7-24); CHLORIDE 110 mmol/L (98-107); CREATININE 0.59 mg/dL (0.55-1.02); SODIUM 142 mmol/L (136-145)
[2019-11-07 08:00] VITALS: BP 101/54
--- NOTE | 2019-11-07 10:13 | NUR ---
INFORMED CONSENT SIGNED FOR LEXISCAN STRESS TEST WITH DR. REYNA. RESTING EKG NSR HR 91, BP 90/50. PULSE OX 96% AND LUNGS CLEAR BILATERALLY. COMPLETED ONE MINUTE OF LEXISCAN PROTOCOL RECEIVING LEXISCAN 0.4MG OVER 10 SEC[address]DS[address] NO ARRHYTHMIAS OR ST CHANGES NOTED. PT C/O LIGHTHEADEDNESS. LAST RECOVERY HR 118, BP 102/64. WAITING NUCLEAR SCANNING IN STABLE CONDITON.
[2019-11-07 12:00] VITALS: BP 119/88
[2019-11-07] MEDS ORDERED: LISINOPRIL20 MG PO (13:39)
[2019-11-07] MEDS ORDERED: NATURE'S BLEND F1 MG PO (13:41)
--- NOTE | 2019-11-07 15:00 | NUR ---
Discharge instructions reviewed with patient/family. Patient receptive and verbalizes understanding. Follow-up care arranged. Written instructions given to patient/family. TERRIE MARTIN
== END 2019-11-07 15:00 | disposition home or self-care (01) | DRG 198 ==
LOC: ED 10:42 → EDHOLD 12:34 → 5E 12:50
PROVIDERS: Emergency Medicine; Internal Medicine; ADMIT Family Medicine
PROC: 4A02XM4 Measurement of Cardiac Total Activity, External Approach (ICD-10-PCS; principal; 2019-11-07)
PROC: 3E073KZ Introduction of Other Diagnostic Substance into Coronary Artery, Percutaneous Approach (ICD-10-PCS; 2019-11-07)
DX: I20.8 Other forms of angina pectoris (principal); R74.8 Abnormal levels of other serum enzymes; E87.8 Other disorders of electrolyte and fluid balance, not elsewhere classified; E87.6 Hypokalemia; E66.9 Obesity, unspecified; D72.9 Disorder of white blood cells, unspecified; E78.5 Hyperlipidemia, unspecified; I10 Essential (primary) hypertension; F32.9 Major depressive disorder, single episode, unspecified; E55.9 Vitamin D deficiency, unspecified; Z98.84 Bariatric surgery status; Z90.49 Acquired absence of other specified parts of digestive tract; Z98.891 History of uterine scar from previous surgery; Z87.891 Personal history of nicotine dependence; Z82.49 Family history of ischemic heart disease and other diseases of the circulatory system; Z83.3 Family history of diabetes mellitus; Z80.8 Family history of malignant neoplasm of other organs or systems; Z88.8 Allergy status to other drugs, medicaments and biological substances; Z79.899 Other long term (current) drug therapy; Z68.39 Body mass index [BMI] 39.0-39.9, adult

== ENCOUNTER 2019-11-29 11:16 | Inpatient (IN) | payer OTHER ==
[~2019-11-29] VITALS: Ht 154.9 cm; Wt 92.1 kg
[~2019-11-29 11:16] MED LIST changes: +HYDROXYZINE PAM50 MG PO; +LISINOPRIL20 MG PO; +NATURE'S BLEND F1 MG PO; +VENLAFAXINE HYD75 MG PO
[2019-11-29 11:26] VITALS: BP 142/102
[2019-11-29 12:15] LABS: BASO # 0.1 10*3/uL (0.0-0.1); BASO % 0.6 % (0.0-1.0); EOS # 0.1 10*3/uL (0.0-0.4); EOS % 1.1 % (1.0-4.0); HEMATOCRIT 44.7 % (37.0-47.0); LYMPH # 2.3 10*3/uL (1.3-4.4); LYMPH % 18.1 % (27.0-41.0); MEAN CELL VOLUME 87.1 fl (81.0-99.0); MEAN CORPUSCULAR HGB 27.5 pg (27.0-31.0); MEAN CORPUSCULAR HGB CONC 31.5 g/dl (33.0-37.0); MEAN PLATELET VOLUME 9.6 fl (9.6-12.3); MONO # 0.7 10*3/uL (0.1-1.0); MONO % 5.8 % (3.0-9.0); NEUT # 9.4 10*3/uL (2.3-7.9); NEUT % 73.5 % (47.0-73.0); PLATELET COUNT AUTOMATED 316 10*3/uL (130-400); RED BLOOD COUNT 5.13 10*6/uL (4.10-5.10); RED CELL DISTRI WIDTH 15.8 % (0-14.5); WHITE BLOOD COUNT 12.9 10*3/uL (4.8-10.8)
[2019-11-29 12:26] LABS: ACT PARTIAL THROMBO TIME 27.9 SECONDS (20.0-32.1)
[2019-11-29 12:31] LABS: ALBUMIN 3.2 gm/dl (3.1-4.5); ALKALINE PHOSPHATASE 131 U/L (45-117); BUN 25 mg/dl (7-24); CHLORIDE 109 mmol/L (98-107); CREATININE 0.66 mg/dL (0.55-1.02); LIPASE 42 U/L (73-393); POTASSIUM 4.3 mmol/L (3.5-5.1); SGOT/AST 30 IU/L (3-35); SGPT/ALT 34 U/L (12-78); SODIUM 139 mmol/L (136-145); TOTAL PROTEIN 7.3 gm/dL (6.4-8.2); TROPONIN I < 0.015 ng/ml (<0.045)
[2019-11-29 13:46] VITALS: BP 147/91
[2019-11-29 14:25] LABS: BILIRUBIN NEGATIVE (NEGATIVE); BLOOD 3+ (NEGATIVE); CLARITY SL CLOUDY (CLEAR); COLOR YELLOW (YELLOW); GLUCOSE NEGATIVE (NEGATIVE); KETONE NEGATIVE (NEGATIVE); NITRITE NEGATIVE (NEGATIVE); PH 7.5 (5.0-9.0); UROBILINOGEN 0.2 E.U./dl (0.2-1.0)
[2019-11-29 14:26] LABS: BACTERIA TRACE; EPITHELIAL CELLS 31-40; LEUKO ESTERASE 1+ (NEGATIVE); RBC TNTC rbc/hpf (0-2); WBC 51-100 wbc/hpf (0-5)
[2019-11-29 16:00] VITALS: BP 147/100
[2019-11-29] MEDS ORDERED: LISINOPRIL40 MG PO (16:25)
[2019-11-29 20:00] VITALS: BP 127/82
[2019-11-30] VITALS (9 sets, daily range): BP systolic 102–133; BP diastolic 73–92
[2019-11-30 06:10] LABS: BASO # 0.1 10*3/uL (0.0-0.1); BASO % 0.4 % (0.0-1.0); EOS # 0.3 10*3/uL (0.0-0.4); EOS % 2.2 % (1.0-4.0); HEMATOCRIT 40.3 % (37.0-47.0); LYMPH # 3.3 10*3/uL (1.3-4.4); MEAN CORPUSCULAR HGB 27.6 pg (27.0-31.0); MEAN PLATELET VOLUME 9.7 fl (9.6-12.3); MONO # 0.9 10*3/uL (0.1-1.0); MONO % 6.4 % (3.0-9.0); NEUT # 8.7 10*3/uL (2.3-7.9); NEUT % 65.2 % (47.0-73.0); PLATELET COUNT AUTOMATED 266 10*3/uL (130-400); RED BLOOD COUNT 4.53 10*6/uL (4.10-5.10); WHITE BLOOD COUNT 13.3 10*3/uL (4.8-10.8)
[2019-11-30 06:29] LABS: BUN 19 mg/dl (7-24); CHLORIDE 110 mmol/L (98-107); CREATININE 0.75 mg/dL (0.55-1.02); POTASSIUM 4.5 mmol/L (3.5-5.1); SODIUM 142 mmol/L (136-145)
[2019-12-01] VITALS: BP 117/77
[2019-12-01 06:10] LABS: BASO # 0.1 10*3/uL (0.0-0.1); BASO % 0.6 % (0.0-1.0); EOS # 0.5 10*3/uL (0.0-0.4); EOS % 5.6 % (1.0-4.0); HEMATOCRIT 38.1 % (37.0-47.0); LYMPH # 3.1 10*3/uL (1.3-4.4); LYMPH % 34.7 % (27.0-41.0); MEAN CELL VOLUME 87.6 fl (81.0-99.0); MEAN CORPUSCULAR HGB 27.6 pg (27.0-31.0); MEAN CORPUSCULAR HGB CONC 31.5 g/dl (33.0-37.0); MEAN PLATELET VOLUME 9.8 fl (9.6-12.3); MONO # 0.6 10*3/uL (0.1-1.0); MONO % 6.7 % (3.0-9.0); NEUT # 4.5 10*3/uL (2.3-7.9); NEUT % 51.5 % (47.0-73.0); PLATELET COUNT AUTOMATED 259 10*3/uL (130-400); RED BLOOD COUNT 4.35 10*6/uL (4.10-5.10); RED CELL DISTRI WIDTH 15.9 % (0-14.5); WHITE BLOOD COUNT 8.8 10*3/uL (4.8-10.8)
[2019-12-01 06:21] LABS: BUN 11 mg/dl (7-24); CHLORIDE 110 mmol/L (98-107); POTASSIUM 4.6 mmol/L (3.5-5.1); SODIUM 142 mmol/L (136-145)
[2019-12-01 08:00] VITALS: BP 122/75
[2019-12-01 12:00] VITALS: BP 105/70
[2019-12-01 16:00] VITALS: BP 105/64
[2019-12-01 20:00] VITALS: BP 87/58
[2019-12-01 21:02] VITALS: BP 84/60
[2019-12-02] VITALS: BP 90/69
[2019-12-02 06:05] VITALS: BP 100/72
[2019-12-02 06:52] LABS: BASO # 0.1 10*3/uL (0.0-0.1); BASO % 0.6 % (0.0-1.0); EOS # 0.4 10*3/uL (0.0-0.4); HEMATOCRIT 34.9 % (37.0-47.0); LYMPH % 33.6 % (27.0-41.0); MEAN CELL VOLUME 88.4 fl (81.0-99.0); MEAN CORPUSCULAR HGB 27.3 pg (27.0-31.0); MEAN CORPUSCULAR HGB CONC 30.9 g/dl (33.0-37.0); MEAN PLATELET VOLUME 9.9 fl (9.6-12.3); MONO # 0.6 10*3/uL (0.1-1.0); MONO % 6.8 % (3.0-9.0); NEUT # 4.7 10*3/uL (2.3-7.9); NEUT % 53.3 % (47.0-73.0); PLATELET COUNT AUTOMATED 247 10*3/uL (130-400); RED BLOOD COUNT 3.95 10*6/uL (4.10-5.10); RED CELL DISTRI WIDTH 15.9 % (0-14.5); WHITE BLOOD COUNT 8.8 10*3/uL (4.8-10.8)
[2019-12-02 07:22] LABS: BUN 9 mg/dl (7-24); CHLORIDE 111 mmol/L (98-107); CREATININE 0.64 mg/dL (0.55-1.02); POTASSIUM 3.8 mmol/L (3.5-5.1); SODIUM 142 mmol/L (136-145)
[2019-12-02 08:27] VITALS: BP 94/60
[2019-12-02 12:00] VITALS: BP 110/83
[2019-12-02 12:58] VITALS: BP 110/60
[2019-12-02] MEDS ORDERED: Carafate1 GM PO (14:10)
[2019-12-02] MEDS ORDERED: PANTOPRAZOLE SO40 MG PO (14:10)
== END 2019-12-02 15:00 | disposition home or self-care (01) | DRG 241 ==
LOC: ED 11:16 → EDHOLD 14:28 → 4E 14:28
PROVIDERS: Emergency Medicine; Internal Medicine; ADMIT Internal Medicine
PROC: 0DJ08ZZ Inspection of Upper Intestinal Tract, Via Natural or Artificial Opening Endoscopic (ICD-10-PCS; principal; 2019-11-30)
DX: K25.0 Acute gastric ulcer with hemorrhage (principal); R65.10 Systemic inflammatory response syndrome (SIRS) of non-infectious origin without acute organ dysfunction; E87.8 Other disorders of electrolyte and fluid balance, not elsewhere classified; E78.5 Hyperlipidemia, unspecified; F33.9 Major depressive disorder, recurrent, unspecified; E83.41 Hypermagnesemia; I16.0 Hypertensive urgency; D64.9 Anemia, unspecified; R79.9 Abnormal finding of blood chemistry, unspecified; Z90.49 Acquired absence of other specified parts of digestive tract; Z90.721 Acquired absence of ovaries, unilateral; Z87.891 Personal history of nicotine dependence; Z98.84 Bariatric surgery status; Z82.49 Family history of ischemic heart disease and other diseases of the circulatory system; Z83.3 Family history of diabetes mellitus; Z88.8 Allergy status to other drugs, medicaments and biological substances; Z79.899 Other long term (current) drug therapy

== ENCOUNTER 2019-12-03 10:27 | Inpatient (IN) | payer OTHER ==
[~2019-12-03] VITALS: Ht 154.9 cm; Wt 93.7 kg
[~2019-12-03 10:27] MED LIST changes: +Carafate1 GM PO; +LISINOPRIL40 MG PO; +PANTOPRAZOLE SO40 MG PO
[2019-12-03 10:38] VITALS: BP 125/86
[2019-12-03 11:17] LABS: BASO # 0.1 10*3/uL (0.0-0.1); BASO % 0.5 % (0.0-1.0); EOS # 0.2 10*3/uL (0.0-0.4); EOS % 2.6 % (1.0-4.0); HEMATOCRIT 36.3 % (37.0-47.0); LYMPH # 2.4 10*3/uL (1.3-4.4); LYMPH % 25.6 % (27.0-41.0); MEAN CELL VOLUME 87.7 fl (81.0-99.0); MEAN CORPUSCULAR HGB 27.8 pg (27.0-31.0); MEAN CORPUSCULAR HGB CONC 31.7 g/dl (33.0-37.0); MEAN PLATELET VOLUME 9.4 fl (9.6-12.3); MONO # 0.6 10*3/uL (0.1-1.0); MONO % 6.4 % (3.0-9.0); NEUT % 63.8 % (47.0-73.0); PLATELET COUNT AUTOMATED 254 10*3/uL (130-400); RED BLOOD COUNT 4.14 10*6/uL (4.10-5.10); RED CELL DISTRI WIDTH 15.8 % (0-14.5); WHITE BLOOD COUNT 9.4 10*3/uL (4.8-10.8)
[2019-12-03 11:27] LABS: ACT PARTIAL THROMBO TIME 27.3 SECONDS (20.0-32.1)
[2019-12-03 11:31] LABS: ALBUMIN 2.9 gm/dl (3.1-4.5); ALKALINE PHOSPHATASE 113 U/L (45-117); BUN 12 mg/dl (7-24); CHLORIDE 113 mmol/L (98-107); CREATININE 0.58 mg/dL (0.55-1.02); POTASSIUM 3.3 mmol/L (3.5-5.1); SGOT/AST 16 IU/L (3-35); SGPT/ALT 21 U/L (12-78); SODIUM 145 mmol/L (136-145); TOTAL PROTEIN 6.3 gm/dL (6.4-8.2)
[2019-12-03 12:35] VITALS: BP 122/78
[2019-12-03 15:45] VITALS: BP 129/91
[2019-12-03 16:00] VITALS: BP 140/90
[2019-12-03 20:00] VITALS: BP 119/75
[2019-12-04] VITALS: BP 133/77
[2019-12-04 06:06] LABS: BASO # 0.1 10*3/uL (0.0-0.1); BASO % 0.5 % (0.0-1.0); EOS # 0.3 10*3/uL (0.0-0.4); EOS % 3.4 % (1.0-4.0); HEMATOCRIT 36.6 % (37.0-47.0); LYMPH # 3.2 10*3/uL (1.3-4.4); LYMPH % 34.4 % (27.0-41.0); MEAN CELL VOLUME 86.9 fl (81.0-99.0); MEAN CORPUSCULAR HGB 27.6 pg (27.0-31.0); MEAN CORPUSCULAR HGB CONC 31.7 g/dl (33.0-37.0); MEAN PLATELET VOLUME 10.1 fl (9.6-12.3); MONO # 0.6 10*3/uL (0.1-1.0); MONO % 6.8 % (3.0-9.0); NEUT % 53.8 % (47.0-73.0); PLATELET COUNT AUTOMATED 257 10*3/uL (130-400); RED BLOOD COUNT 4.21 10*6/uL (4.10-5.10); RED CELL DISTRI WIDTH 15.9 % (0-14.5); WHITE BLOOD COUNT 9.2 10*3/uL (4.8-10.8)
[2019-12-04 06:24] LABS: BUN 6 mg/dl (7-24); CHLORIDE 108 mmol/L (98-107); CREATININE 0.55 mg/dL (0.55-1.02); POTASSIUM 3.5 mmol/L (3.5-5.1); SODIUM 142 mmol/L (136-145)
[2019-12-04 08:00] VITALS: BP 140/75
[2019-12-04 12:00] VITALS: BP 118/85
[2019-12-04 16:00] VITALS: BP 107/68
[2019-12-04 20:00] VITALS: BP 111/74
[2019-12-05] VITALS: BP 104/62
[2019-12-05 06:20] LABS: BASO # 0.1 10*3/uL (0.0-0.1); BASO % 0.6 % (0.0-1.0); EOS # 0.5 10*3/uL (0.0-0.4); HEMATOCRIT 36.8 % (37.0-47.0); LYMPH % 33.5 % (27.0-41.0); MEAN CELL VOLUME 87.2 fl (81.0-99.0); MEAN CORPUSCULAR HGB 27.7 pg (27.0-31.0); MEAN CORPUSCULAR HGB CONC 31.8 g/dl (33.0-37.0); MEAN PLATELET VOLUME 10.1 fl (9.6-12.3); MONO # 0.7 10*3/uL (0.1-1.0); MONO % 8.1 % (3.0-9.0); NEUT # 4.5 10*3/uL (2.3-7.9); NEUT % 50.9 % (47.0-73.0); PLATELET COUNT AUTOMATED 263 10*3/uL (130-400); RED BLOOD COUNT 4.22 10*6/uL (4.10-5.10); WHITE BLOOD COUNT 8.9 10*3/uL (4.8-10.8)
[2019-12-05 08:00] VITALS: BP 113/63
[2019-12-05 12:00] VITALS: BP 106/64
[2019-12-05 16:00] VITALS: BP 99/65
[2019-12-05 20:00] VITALS: BP 95/59
[2019-12-06] VITALS: BP 90/48
[2019-12-06 06:36] LABS: BASO # 0.1 10*3/uL (0.0-0.1); BASO % 0.7 % (0.0-1.0); EOS # 0.5 10*3/uL (0.0-0.4); EOS % 6.2 % (1.0-4.0); HEMATOCRIT 36.4 % (37.0-47.0); LYMPH # 2.9 10*3/uL (1.3-4.4); LYMPH % 35.4 % (27.0-41.0); MEAN CELL VOLUME 87.9 fl (81.0-99.0); MEAN CORPUSCULAR HGB 27.3 pg (27.0-31.0); MEAN PLATELET VOLUME 9.4 fl (9.6-12.3); MONO # 0.6 10*3/uL (0.1-1.0); MONO % 7.2 % (3.0-9.0); NEUT % 49.9 % (47.0-73.0); PLATELET COUNT AUTOMATED 256 10*3/uL (130-400); RED BLOOD COUNT 4.14 10*6/uL (4.10-5.10); RED CELL DISTRI WIDTH 16.3 % (0-14.5)
[2019-12-06 06:45] LABS: BUN 4 mg/dl (7-24); CHLORIDE 109 mmol/L (98-107); CREATININE 0.57 mg/dL (0.55-1.02); POTASSIUM 3.6 mmol/L (3.5-5.1); SODIUM 144 mmol/L (136-145)
[2019-12-06 08:00] VITALS: BP 115/59
[2019-12-06 12:00] VITALS: BP 103/70
[2019-12-06 16:00] VITALS: BP 84/50
[2019-12-06 20:00] VITALS: BP 92/54
[2019-12-07] VITALS: BP 108/64
[2019-12-07 06:38] LABS: BASO % 0.5 % (0.0-1.0); EOS # 0.4 10*3/uL (0.0-0.4); EOS % 4.9 % (1.0-4.0); HEMATOCRIT 34.5 % (37.0-47.0); LYMPH # 2.7 10*3/uL (1.3-4.4); LYMPH % 35.1 % (27.0-41.0); MEAN CELL VOLUME 87.8 fl (81.0-99.0); MEAN CORPUSCULAR HGB 27.7 pg (27.0-31.0); MEAN CORPUSCULAR HGB CONC 31.6 g/dl (33.0-37.0); MONO # 0.6 10*3/uL (0.1-1.0); MONO % 7.7 % (3.0-9.0); NEUT # 3.9 10*3/uL (2.3-7.9); NEUT % 50.9 % (47.0-73.0); PLATELET COUNT AUTOMATED 276 10*3/uL (130-400); RED BLOOD COUNT 3.93 10*6/uL (4.10-5.10); WHITE BLOOD COUNT 7.7 10*3/uL (4.8-10.8)
[2019-12-07 08:00] VITALS: BP 103/66
[2019-12-07 12:00] VITALS: BP 90/60
[2019-12-07 16:00] VITALS: BP 110/55
[2019-12-07 20:00] VITALS: BP 111/62
[2019-12-08] VITALS: BP 112/71
[2019-12-08 08:00] VITALS: BP 134/80
[2019-12-08 09:19] LABS: BASO % 0.4 % (0.0-1.0); EOS # 0.2 10*3/uL (0.0-0.4); EOS % 2.7 % (1.0-4.0); HEMATOCRIT 35.1 % (37.0-47.0); LYMPH # 2.3 10*3/uL (1.3-4.4); LYMPH % 28.9 % (27.0-41.0); MEAN CELL VOLUME 86.9 fl (81.0-99.0); MEAN CORPUSCULAR HGB CONC 31.1 g/dl (33.0-37.0); MEAN PLATELET VOLUME 9.6 fl (9.6-12.3); MONO # 0.3 10*3/uL (0.1-1.0); MONO % 4.3 % (3.0-9.0); NEUT % 63.2 % (47.0-73.0); PLATELET COUNT AUTOMATED 268 10*3/uL (130-400); RED BLOOD COUNT 4.04 10*6/uL (4.10-5.10); RED CELL DISTRI WIDTH 16.1 % (0-14.5); WHITE BLOOD COUNT 7.9 10*3/uL (4.8-10.8)
[2019-12-08] MEDS ORDERED: REGLAN5 MG PO (10:02)
[2019-12-08] MEDS ORDERED: PANTOPRAZOLE SO40 MG PO (10:02)
[2019-12-08] MEDS ORDERED: ZOFRAN4 MG PO (10:02)
== END 2019-12-08 11:07 | disposition home or self-care (01) | DRG 241 ==
LOC: ED 10:27 → 4E 11:16 → EDHOLD 11:16 → 4E 14:25
PROVIDERS: Emergency Medicine; Internal Medicine; Student in an Organized Health Care Education/Training Program; ADMIT Internal Medicine
DX: K25.0 Acute gastric ulcer with hemorrhage (principal); E87.6 Hypokalemia; E44.0 Moderate protein-calorie malnutrition; I10 Essential (primary) hypertension; K29.70 Gastritis, unspecified, without bleeding; E87.8 Other disorders of electrolyte and fluid balance, not elsewhere classified; D62 Acute posthemorrhagic anemia; E66.9 Obesity, unspecified; Z68.39 Body mass index [BMI] 39.0-39.9, adult; Z71.3 Dietary counseling and surveillance; E78.5 Hyperlipidemia, unspecified; F32.9 Major depressive disorder, single episode, unspecified; E83.41 Hypermagnesemia; Z90.49 Acquired absence of other specified parts of digestive tract; Z88.8 Allergy status to other drugs, medicaments and biological substances; Z98.84 Bariatric surgery status; Z90.721 Acquired absence of ovaries, unilateral; Z87.891 Personal history of nicotine dependence; Z82.49 Family history of ischemic heart disease and other diseases of the circulatory system; Z83.3 Family history of diabetes mellitus; Z80.8 Family history of malignant neoplasm of other organs or systems; Z79.899 Other long term (current) drug therapy

== ENCOUNTER 2019-12-12 03:24 | Observation (INO) | payer OTHER ==
[~2019-12-12] VITALS: Ht 154.9 cm; Wt 94.0 kg
[~2019-12-12 03:24] MED LIST changes: +REGLAN5 MG PO
[2019-12-12 03:29] VITALS: BP 145/96
[2019-12-12 04:09] LABS: BASO # 0.1 10*3/uL (0.0-0.1); BASO % 0.8 % (0.0-1.0); EOS # 0.2 10*3/uL (0.0-0.4); EOS % 3.1 % (1.0-4.0); HEMATOCRIT 35.5 % (37.0-47.0); LYMPH # 2.6 10*3/uL (1.3-4.4); LYMPH % 33.1 % (27.0-41.0); MEAN CELL VOLUME 84.9 fl (81.0-99.0); MEAN CORPUSCULAR HGB 27.3 pg (27.0-31.0); MEAN CORPUSCULAR HGB CONC 32.1 g/dl (33.0-37.0); MEAN PLATELET VOLUME 9.4 fl (9.6-12.3); MONO # 0.6 10*3/uL (0.1-1.0); MONO % 7.3 % (3.0-9.0); NEUT # 4.3 10*3/uL (2.3-7.9); NEUT % 55.2 % (47.0-73.0); PLATELET COUNT AUTOMATED 284 10*3/uL (130-400); RED BLOOD COUNT 4.18 10*6/uL (4.10-5.10); RED CELL DISTRI WIDTH 15.7 % (0-14.5); WHITE BLOOD COUNT 7.8 10*3/uL (4.8-10.8)
[2019-12-12 04:24] LABS: ALBUMIN 2.8 gm/dl (3.1-4.5); ALKALINE PHOSPHATASE 106 U/L (45-117); BUN 5 mg/dl (7-24); CHLORIDE 108 mmol/L (98-107); CREATININE 0.49 mg/dL (0.55-1.02); LIPASE 41 U/L (73-393); POTASSIUM 3.2 mmol/L (3.5-5.1); SGOT/AST 12 IU/L (3-35); SGPT/ALT 15 U/L (12-78); SODIUM 143 mmol/L (136-145); TOTAL PROTEIN 6.2 gm/dL (6.4-8.2)
--- NOTE | 2019-12-12 04:44 | NUR ---
PER PATIENT NAUSEA MEDICATION SEEMED EFFECTIVE AT THIS TIME. PATIENT TRYING TO PROVIDE URINE AT THIS TIME.
[2019-12-12 05:29] LABS: BILIRUBIN NEGATIVE (NEGATIVE); BLOOD TRACE-INTACT (NEGATIVE); CLARITY SL CLOUDY (CLEAR); COLOR YELLOW (YELLOW); GLUCOSE NEGATIVE (NEGATIVE); KETONE NEGATIVE (NEGATIVE)
[2019-12-12 05:30] LABS: LEUKO ESTERASE 1+ (NEGATIVE); NITRITE NEGATIVE (NEGATIVE); UROBILINOGEN 0.2 E.U./dl (0.2-1.0)
[2019-12-12 05:37] LABS: BACTERIA 2+; EPITHELIAL CELLS 21-30
--- NOTE | 2019-12-12 05:57 | NUR ---
PATIENT RESTING QUIETLY IN BED AT THIS TIME WITH EYES CLOSED. RESPIRATIONS EASY, NON-LABORED ON ROOM AIR. NO DISTRESS NOTED. RN WILL CONTINUE TO MONITOR.
[2019-12-12 07:16] VITALS: BP 138/87
--- NOTE | 2019-12-12 07:17 | NUR ---
NURSE TO NURSE REPORT RECEIVED FROM CLAUDIA BOLANOS. VITAL SIGNS DONE.
--- NOTE | 2019-12-12 07:31 | NUR ---
RN ON FLOOR REQUESTED 15 MINUTES BEFORE PT TRANSPORT. WILL PROCEED TO FLOOR AT THAT TIME.
--- NOTE | 2019-12-12 07:45 | NUR ---
Time: 744 A 54 year old FEMALE admitted to under services of NANCY GLASS DO. Pt. arrived via bed from ER. Chief complaint: ABDOMINAL PAIN. PAULINA SPRAGUE
[2019-12-12 08:00] VITALS: BP 120/84
--- NOTE | 2019-12-12 08:25 | NUR ---
PT MEDICATED WITH PRN MORPHINE FOR C/O ABDOMINAL PAIN, SPECIFICALLY HER RUQ. PT RATES PAIN 01/22. WILL MONITOR.
--- NOTE | 2019-12-12 09:00 | NUR ---
Television Engineer in to talk to patient. Patient states lives at home with and son. There are 4 steps in the home. Physician: andriy light Pharmacy: [facility] [place] health services: none Patient's level of ADLs: INDEPENDENT Patient has working utilities: all working DME: none Follow-up physician's appointment after d/c: will be made by hospitalist nurse director upon discharge Does patient want to access PORTAL?: no Discharge plan discussed with patient, she lives at home with and son, she is independent in adls and ambulation, drives, she states she will return home when discharged and denies any home needs, patient states family will transport her home, case management will follow. SHANNA HERRERA
--- NOTE | 2019-12-12 09:00 | NUR ---
PRN MORPHINE EFFECTIVE PER PT.
--- NOTE | 2019-12-12 11:09 | NUR ---
PT RESTING IN BED WITH EYES CLOSED. NO S/S OF DISTRESS NOTED. WILL CONTINUE TO MONITOR.
[2019-12-12 12:00] VITALS: BP 144/84
--- NOTE | 2019-12-12 13:40 | NUR ---
PT MEDICATED WITH PRN MORPHINE AND ZOFRAN FOR C/O ABDOMINAL PAIN THAT RATES 7/10 AND NAUSEA. WILL MONITOR.
--- NOTE | 2019-12-12 14:13 | NUR ---
PRN MEDS EFFECTIVE PER PT.
[2019-12-12 16:00] VITALS: BP 149/90
[2019-12-12 20:00] VITALS: BP 130/87
--- NOTE | 2019-12-12 21:51 | NUR ---
PRN RESTORIL AND ZOFRAN GIVEN PER PT REQUEST FOR NAUSEA AND INSOMNIA. WILL MONIOTR.
--- NOTE | 2019-12-12 22:50 | NUR ---
PATIENT RESTING; PRN MEDS APPEAR EFFECTIVE. RESPS EASY AND REGULAR ON ROOM AIR. CALL LIGHT IN REACH. IVF PER ORDERS.
[2019-12-13] VITALS: BP 125/67
[2019-12-13 06:15] LABS: BASO # 0.1 10*3/uL (0.0-0.1); BASO % 0.8 % (0.0-1.0); EOS # 0.2 10*3/uL (0.0-0.4); EOS % 3.5 % (1.0-4.0); HEMATOCRIT 36.6 % (37.0-47.0); LYMPH # 2.1 10*3/uL (1.3-4.4); LYMPH % 33.5 % (27.0-41.0); MEAN CELL VOLUME 86.3 fl (81.0-99.0); MEAN CORPUSCULAR HGB 27.4 pg (27.0-31.0); MEAN CORPUSCULAR HGB CONC 31.7 g/dl (33.0-37.0); MEAN PLATELET VOLUME 9.7 fl (9.6-12.3); MONO # 0.5 10*3/uL (0.1-1.0); MONO % 7.5 % (3.0-9.0); NEUT # 3.4 10*3/uL (2.3-7.9); NEUT % 53.7 % (47.0-73.0); PLATELET COUNT AUTOMATED 292 10*3/uL (130-400); RED BLOOD COUNT 4.24 10*6/uL (4.10-5.10); RED CELL DISTRI WIDTH 15.6 % (0-14.5); WHITE BLOOD COUNT 6.3 10*3/uL (4.8-10.8)
[2019-12-13 06:29] LABS: ALBUMIN 2.9 gm/dl (3.1-4.5); ALKALINE PHOSPHATASE 130 U/L (45-117); BUN 5 mg/dl (7-24); CHLORIDE 108 mmol/L (98-107); CREATININE 0.59 mg/dL (0.55-1.02); POTASSIUM 3.7 mmol/L (3.5-5.1); SGOT/AST 22 IU/L (3-35); SGPT/ALT 17 U/L (12-78); SODIUM 143 mmol/L (136-145); TOTAL PROTEIN 6.3 gm/dL (6.4-8.2)
[2019-12-13 08:00] VITALS: BP 126/68
--- NOTE | 2019-12-13 10:07 | NUR ---
PATIENT C//O NAUSEA AT THIS TIME AND MEDICATED WITH IV ZOFRAN. WILL MONITOR FOR EFFECTIVENESS.
--- NOTE | 2019-12-13 11:07 | NUR ---
PER PATIENT, PRN MEDICATION HAS BEEN EFFECTIVE.
--- NOTE | 2019-12-13 11:28 | NUR ---
PT CONTINUES TO DENY NEEDS AT HOME ON DISCHARGE. WILL RETURN HOME WITH WHEN MEDICALLY STABLE. WILL CONTINUE TO FOLLOW.
[2019-12-13 12:00] VITALS: BP 120/82
--- NOTE | 2019-12-13 14:50 | NUR ---
PATIENT TOLERATED SOLID FOOD WELL WITH NO COMPLAINTS OF NAUSEA/STOMACH PAIN. NOTIFIED RAMSEY HERNANDEZ
[2019-12-13] MEDS ORDERED: REGLAN5 MG PO (15:22)
--- NOTE | 2019-12-13 15:50 | NUR ---
Discharge instructions reviewed with patient/family. Patient receptive and verbalizes understanding. Follow-up care arranged. Written instructions given to patient/family. [place] DISCONTINUED. PATIENT SPOKE WITH PRIOR TO D/C AND IS AWARE OF NEED TO FOLLOW-UP IN OFFICE. PT AMBULATORY OFF FLOOR AND PICKED UP BY . PAVAN ADAME
== END 2019-12-13 16:13 | disposition home or self-care (01) ==
LOC: ED 03:24 → 4E 06:57 → EDHOLD 06:57 → 4E 06:57 → EDHOLD 06:57 → 4E 07:24 → EDHOLD 07:25 → 4E 07:25
PROVIDERS: Emergency Medicine; Internal Medicine; ADMIT Emergency Medicine
DX: K29.70 Gastritis, unspecified, without bleeding (principal); K25.9 Gastric ulcer, unspecified as acute or chronic, without hemorrhage or perforation; E44.0 Moderate protein-calorie malnutrition; E87.6 Hypokalemia; E78.5 Hyperlipidemia, unspecified; I10 Essential (primary) hypertension; F32.9 Major depressive disorder, single episode, unspecified; E55.9 Vitamin D deficiency, unspecified; D64.9 Anemia, unspecified

== ENCOUNTER → 2020-02-21 | Outpatient (CLI) | payer OTHER ==
[~2020-02-21] MED LIST changes: +PROPRANOLOL HCL10 MG PO; +VISTARIL50 MG PO; +VITAMIN D350 MC2 PO
== END | disposition home or self-care (01) ==
LOC: US 15:00
PROVIDERS: ATTEND Nurse Practitioner Family
DX: I65.23 Occlusion and stenosis of bilateral carotid arteries (principal)

== ENCOUNTER 2020-02-23 13:00 | Observation (INO) | payer OTHER ==
[~2020-02-23] VITALS: Ht 154.9 cm; Wt 82.6 kg
[~2020-02-23 13:00] MED LIST changes: -PROPRANOLOL HCL10 MG PO; -VISTARIL50 MG PO; -VITAMIN D350 MC2 PO
[2020-02-23 13:10] VITALS: BP 165/100
[2020-02-23 13:37] LABS: BASO % 0.3 % (0.0-1.0); EOS # 0.2 10*3/uL (0.0-0.4); EOS % 2.2 % (1.0-4.0); HEMATOCRIT 38.7 % (37.0-47.0); LYMPH # 2.6 10*3/uL (1.3-4.4); LYMPH % 27.4 % (27.0-41.0); MEAN CORPUSCULAR HGB 24.7 pg (27.0-31.0); MEAN CORPUSCULAR HGB CONC 31.3 g/dl (33.0-37.0); MONO # 0.7 10*3/uL (0.1-1.0); MONO % 7.8 % (3.0-9.0); NEUT # 5.8 10*3/uL (2.3-7.9); PLATELET COUNT AUTOMATED 286 10*3/uL (130-400); RED CELL DISTRI WIDTH 15.6 % (0-14.5); WHITE BLOOD COUNT 9.4 10*3/uL (4.8-10.8)
[2020-02-23 13:50] LABS: CLARITY CLOUDY (CLEAR); COLOR YELLOW (YELLOW)
[2020-02-23 13:51] LABS: BILIRUBIN NEGATIVE; BLOOD NEGATIVE (NEGATIVE); GLUCOSE NEGATIVE; KETONE NEGATIVE; LEUKO ESTERASE 1+ (NEGATIVE); NITRITE POSITIVE (NEGATIVE); PH 5.5 (4.5-8.0); SPECIFIC GRAVITY > 1.030 (1.001-1.030)
[2020-02-23 13:55] LABS: ALKALINE PHOSPHATASE 117 U/L (45-117); BUN 12 mg/dl (7-24); CHLORIDE 106 mmol/L (98-107); CREATININE 0.74 mg/dL (0.55-1.02); POTASSIUM 3.5 mmol/L (3.5-5.1); SGOT/AST 9 IU/L (3-35); SGPT/ALT 11 U/L (12-78); SODIUM 140 mmol/L (136-145); TOTAL PROTEIN 6.8 gm/dL (6.4-8.2)
[2020-02-23 13:58] LABS: BACTERIA 4+; EPITHELIAL CELLS 16-20; WBC 51-100 wbc/hpf (0-5)
[2020-02-23 14:01] LABS: TROPONIN I < 0.015 ng/ml (<0.045)
[2020-02-23 15:49] VITALS: BP 145/89
--- NOTE | 2020-02-23 16:15 | NUR ---
Time: 1614 A 54 year old FEMALE admitted to 5E under services of SUNDAY LEE DO. Pt. arrived via wheel chair from ER. Chief complaint: UTI. FRANDY MENDIOLA
[2020-02-23 18:00] VITALS: BP 151/79
--- NOTE | 2020-02-23 18:29 | NUR ---
LYING IN BED WATCHING TV. CONSUMED DINNER. IN STABLE CONDITION.
[2020-02-23] MEDS ORDERED: VISTARIL50 MG PO (18:38)
[2020-02-23] MEDS ORDERED: PROPRANOLOL HCL10 MG PO (18:39)
[2020-02-23] MEDS ORDERED: VITAMIN D350 MC2 PO (18:40)
--- NOTE | 2020-02-23 18:42 | NUR ---
MED REC UPDATED WITH PHARMACIST AT [facility]. DR TRAN NOTIFIED.
[2020-02-23 20:00] VITALS: BP 128/83
--- NOTE | 2020-02-23 20:07 | NUR ---
PATIENT RESTING IN BED. NO DISTRESS NOTED. IV FLUIDS INFUSING PER ORDER. PATIENT PLEASANT AND COOPERATIVE. HAS NO COMPLAINTS AT THIS TIME. STATES THAT SHE ONLY HAS FREQUENCY WITH URINATION. NO BURNING OR PAIN AT THIS TIME. PATIENT DENIES ANY NEEDS AT THIS TIME. CALL LIGHT LEFT WITHIN REACH, WILL MONITOR
--- NOTE | 2020-02-23 22:09 | NUR ---
PRN RESTORIL GIVEN FOR PT COMPLAINTS OF SLEEPLESNESS. CALL LIGHT WITHIN REACH, WILL MONITOR
--- NOTE | 2020-02-23 23:00 | NUR ---
PRN MEDICATION APPEARS EFFECTIVE, PT SLEEPING
--- NOTE | 2020-02-23 23:39 | NUR ---
24 HR chart check completed.
[2020-02-24] VITALS: BP 115/65
--- NOTE | 2020-02-24 01:27 | NUR ---
PATIENT CONTINUES TO SLEEP. IV FLUIDS INFUSING PER ORDER. BREATHING IS EASY AND REGULAR. CALL LIGHT WITHIN REACH, WILL MONITOR
[2020-02-24 06:53] LABS: BASO % 0.6 % (0.0-1.0); EOS # 0.2 10*3/uL (0.0-0.4); EOS % 3.4 % (1.0-4.0); HEMATOCRIT 36.9 % (37.0-47.0); LYMPH # 2.1 10*3/uL (1.3-4.4); LYMPH % 34.2 % (27.0-41.0); MEAN CORPUSCULAR HGB 24.7 pg (27.0-31.0); MEAN CORPUSCULAR HGB CONC 30.1 g/dl (33.0-37.0); MEAN PLATELET VOLUME 9.8 fl (9.6-12.3); MONO # 0.5 10*3/uL (0.1-1.0); MONO % 7.6 % (3.0-9.0); NEUT # 3.3 10*3/uL (2.3-7.9); NEUT % 53.9 % (47.0-73.0); PLATELET COUNT AUTOMATED 220 10*3/uL (130-400); RED CELL DISTRI WIDTH 15.7 % (0-14.5); WHITE BLOOD COUNT 6.2 10*3/uL (4.8-10.8)
[2020-02-24 06:58] LABS: BUN 7 mg/dl (7-24); CHLORIDE 112 mmol/L (98-107); CHOLESTEROL 180 mg/dL (<200); CREATININE 0.59 mg/dL (0.55-1.02); FREE T4 0.87 ng/dl (0.76-1.46); HDL CHOLESTEROL 49 mg/dl (40-60); LDL CHOLESTEROL 105 mg/dL (9-159); POTASSIUM 3.4 mmol/L (3.5-5.1); SODIUM 145 mmol/L (136-145); TRIGLYCERIDES 129 mg/dl (<150); VLDL CHOLESTEROL 26 mg/dL (6-40)
[2020-02-24 07:04] LABS: THYROID STIM HORMONE (HS) 0.543 uIU/ml (0.358-4.75)
[2020-02-24 08:00] VITALS: BP 120/70
--- NOTE | 2020-02-24 09:00 | NUR ---
Manager Banking in to talk to patient. Patient states lives at home with her and son. There are 6 steps in the home. Physician: Vidhya Santiago [facility]: [facility] Home health services: none Patient's level of ADLs: INDEPENDENT Patient has working utilities: yes DME: none Follow-up physician's appointment after d/c: will be made by the hospitalist nurse director upon discharge Does patient want to access PORTAL?: no Discharge plan discussed with patient. She lives at home with her family. She is independent in her ADLs and ambulation. Discussed home health care services and she declines. CM will continue to follow for any discharge planning needs. When medically stable she will be discharged to home. She states her will provide transportation on discharge. LUCINA JURADO
[2020-02-24] MEDS ORDERED: CIPRO250 MG PO (11:42)
[2020-02-24] MEDS ORDERED: MECLIZINE HCL25 M2 PO (11:42)
--- NOTE | 2020-02-24 11:52 | NUR ---
DR ORA TRTOTER - OJ TO DC...Hep Lock discontinued. Site asymptomatic. Pressure applied. Sterile dressing applied. Discharge instructions reviewed with patient/family. Patient receptive and verbalizes understanding. Follow-up care arranged. Written instructions given to patient/family. NELSY KEYES
--- NOTE | 2020-02-24 12:00 | NUR ---
PATIENT AMBULATED OUT
== END 2020-02-24 12:37 | disposition home or self-care (01) ==
LOC: ED 13:00 → EDHOLD 15:09 → 5E 15:19
PROVIDERS: Emergency Medicine; Internal Medicine; ADMIT Family Medicine; ATTEND Family Medicine
DX: N39.0 Urinary tract infection, site not specified (principal); R42 Dizziness and giddiness; R11.2 Nausea with vomiting, unspecified; E78.5 Hyperlipidemia, unspecified; I10 Essential (primary) hypertension; F32.9 Major depressive disorder, single episode, unspecified; F41.9 Anxiety disorder, unspecified; R71.8 Other abnormality of red blood cells

== ENCOUNTER → 2020-03-02 | Outpatient (CLI) | payer OTHER ==
[~2020-03-02] MED LIST changes: +CIPRO250 MG PO; +MECLIZINE HCL25 M2 PO; +PROPRANOLOL HCL10 MG PO; +VISTARIL50 MG PO; +VITAMIN D350 MC2 PO
== END | disposition home or self-care (01) ==
LOC: RESCLI 03-01 00:49
PROVIDERS: ATTEND Internal Medicine
DX: Z12.31 Encounter for screening mammogram for malignant neoplasm of breast (principal); H81.10 Benign paroxysmal vertigo, unspecified ear; I10 Essential (primary) hypertension; K25.9 Gastric ulcer, unspecified as acute or chronic, without hemorrhage or perforation; F41.9 Anxiety disorder, unspecified; K21.9 Gastro-esophageal reflux disease without esophagitis; F33.9 Major depressive disorder, recurrent, unspecified; G47.00 Insomnia, unspecified; R51 Headache; E87.6 Hypokalemia; Z79.899 Other long term (current) drug therapy; Z71.89 Other specified counseling; Z98.890 Other specified postprocedural states; Z88.8 Allergy status to other drugs, medicaments and biological substances

== ENCOUNTER 2020-04-18 11:33 | Emergency (ER) | payer OTHER ==
[~2020-04-18] VITALS: Wt 84.8 kg
[2020-04-18 12:21] LABS: BASO # 0.1 10*3/uL (0.0-0.1); BASO % 0.5 % (0.0-1.0); EOS % 0.4 % (1.0-4.0); HEMATOCRIT 46.7 % (37.0-47.0); LYMPH % 19.2 % (27.0-41.0); MEAN CELL VOLUME 75.7 fl (81.0-99.0); MEAN CORPUSCULAR HGB 23.3 pg (27.0-31.0); MEAN CORPUSCULAR HGB CONC 30.8 g/dl (33.0-37.0); MEAN PLATELET VOLUME 9.1 fl (9.6-12.3); MONO # 0.8 10*3/uL (0.1-1.0); MONO % 7.4 % (3.0-9.0); NEUT # 7.5 10*3/uL (2.3-7.9); NEUT % 72.1 % (47.0-73.0); PLATELET COUNT AUTOMATED 301 10*3/uL (130-400); RED BLOOD COUNT 6.17 10*6/uL (4.10-5.10); RED CELL DISTRI WIDTH 16.1 % (0-14.5); WHITE BLOOD COUNT 10.3 10*3/uL (4.8-10.8)
[2020-04-18 12:30] LABS: ACT PARTIAL THROMBO TIME 31.5 SECONDS (20.0-32.1); INTERNATIONAL NORM RATIO 1.1 (2.0-3.5)
[2020-04-18 12:35] LABS: ALBUMIN 3.3 gm/dl (3.1-4.5); ALKALINE PHOSPHATASE 162 U/L (45-117); BUN 8 mg/dl (7-24); CHLORIDE 105 mmol/L (98-107); CREATININE 0.82 mg/dL (0.55-1.02); LIPASE 41 U/L (73-393); POTASSIUM 3.4 mmol/L (3.5-5.1); SGOT/AST 17 IU/L (3-35); SGPT/ALT 16 U/L (12-78); SODIUM 144 mmol/L (136-145); TOTAL PROTEIN 7.5 gm/dL (6.4-8.2)
[2020-04-18 12:38] LABS: BILIRUBIN Negative (Negative); BLOOD Negative (Negative); CLARITY Cloudy (Clear); COLOR Dark Yellow (Yellow); GLUCOSE Negative (Negative); KETONE Trace (Negative); LEUKO ESTERASE 2+ (Negative); NITRITE Negative (Negative); PH 6.5 (4.5-8.0); SPECIFIC GRAVITY 1.025 (1.001-1.030)
[2020-04-18 12:56] LABS: WBC 21-30 wbc/hpf (0-5)
[2020-04-18 12:58] LABS: BACTERIA 3+; CALCIUM OXALATE CRYSTALS 4+; EPITHELIAL CELLS 21-30
[2020-04-18] MEDS ORDERED: Carafate1 GM/10 ML PO (15:39)
[2020-04-18] MEDS ORDERED: PROTONIX40 MG PO (15:39)
== END 2020-04-18 16:26 | disposition home or self-care (01) ==
LOC: ED 11:33
PROVIDERS: Nurse Practitioner Family
DX: K25.9 Gastric ulcer, unspecified as acute or chronic, without hemorrhage or perforation (principal); I10 Essential (primary) hypertension; E78.5 Hyperlipidemia, unspecified; F32.9 Major depressive disorder, single episode, unspecified; Z90.49 Acquired absence of other specified parts of digestive tract; Z88.8 Allergy status to other drugs, medicaments and biological substances; Z88.2 Allergy status to sulfonamides; Z79.899 Other long term (current) drug therapy

== ENCOUNTER 2020-04-21 12:56 | Emergency (ER) | payer OTHER ==
[~2020-04-21] VITALS: Ht 154.9 cm; Wt 82.8 kg
[~2020-04-21 12:56] MED LIST changes: +Carafate1 GM/10 ML PO; +PROTONIX40 MG PO
[2020-04-21 13:59] LABS: BASO # 0.1 10*3/uL (0.0-0.1); BASO % 0.5 % (0.0-1.0); EOS % 0.1 % (1.0-4.0); HEMATOCRIT 48.7 % (37.0-47.0); LYMPH # 0.8 10*3/uL (1.3-4.4); LYMPH % 5.7 % (27.0-41.0); MEAN CELL VOLUME 75.5 fl (81.0-99.0); MEAN CORPUSCULAR HGB 23.1 pg (27.0-31.0); MEAN CORPUSCULAR HGB CONC 30.6 g/dl (33.0-37.0); MONO # 0.6 10*3/uL (0.1-1.0); MONO % 4.4 % (3.0-9.0); NEUT # 12.4 10*3/uL (2.3-7.9); NEUT % 87.2 % (47.0-73.0); PLATELET COUNT AUTOMATED 299 10*3/uL (130-400); RED BLOOD COUNT 6.45 10*6/uL (4.10-5.10); RED CELL DISTRI WIDTH 17.1 % (0-14.5); WHITE BLOOD COUNT 14.2 10*3/uL (4.8-10.8)
[2020-04-21 14:16] LABS: ALBUMIN 3.2 gm/dl (3.1-4.5); ALKALINE PHOSPHATASE 175 U/L (45-117); BUN 16 mg/dl (7-24); CHLORIDE 104 mmol/L (98-107); CREATININE 0.94 mg/dL (0.55-1.02); POTASSIUM 3.1 mmol/L (3.5-5.1); SODIUM 141 mmol/L (136-145); TOTAL PROTEIN 6.9 gm/dL (6.4-8.2)
[2020-04-21 14:21] LABS: ACETAMINOPHEN (TYLENOL) < 5.0 ug/ml (10-30); ETHYL ALCOHOL < 3.0 mg/dl (<3); SGOT/AST 1694 IU/L (3-35); SGPT/ALT 1078 U/L (12-78)
[2020-04-21 16:20] LABS: INTERNATIONAL NORM RATIO 1.3 (2.0-3.5)
== END 2020-04-21 16:25 | disposition short-term general hospital (02) ==
LOC: ED 12:56
PROVIDERS: Emergency Medicine; Nurse Practitioner Family
DX: T39.1X1A Poisoning by 4-Aminophenol derivatives, accidental (unintentional), initial encounter (principal); Z88.2 Allergy status to sulfonamides; Z88.8 Allergy status to other drugs, medicaments and biological substances; Z79.899 Other long term (current) drug therapy; Z79.2 Long term (current) use of antibiotics; Y92.89 Other specified places as the place of occurrence of the external cause

== ENCOUNTER 2020-05-07 17:01 | Emergency (ER) | payer OTHER ==
[~2020-05-07] VITALS: Ht 154.9 cm; Wt 79.8 kg
[2020-05-07] MEDS ORDERED: ZOFRAN4 MG PO (17:14)
[2020-05-07 17:38] LABS: BASO % 0.3 % (0.0-1.0); EOS % 0.6 % (1.0-4.0); HEMATOCRIT 41.7 % (37.0-47.0); LYMPH # 0.3 10*3/uL (1.3-4.4); LYMPH % 4.9 % (27.0-41.0); MEAN CELL VOLUME 77.1 fl (81.0-99.0); MEAN CORPUSCULAR HGB 23.5 pg (27.0-31.0); MEAN CORPUSCULAR HGB CONC 30.5 g/dl (33.0-37.0); MEAN PLATELET VOLUME 9.3 fl (9.6-12.3); MONO # 0.5 10*3/uL (0.1-1.0); MONO % 8.1 % (3.0-9.0); NEUT # 5.6 10*3/uL (2.3-7.9); NEUT % 85.3 % (47.0-73.0); PLATELET COUNT AUTOMATED 344 10*3/uL (130-400); RED BLOOD COUNT 5.41 10*6/uL (4.10-5.10); RED CELL DISTRI WIDTH 16.7 % (0-14.5); WHITE BLOOD COUNT 6.5 10*3/uL (4.8-10.8)
[2020-05-07 17:55] LABS: ALBUMIN 2.8 gm/dl (3.1-4.5); ALKALINE PHOSPHATASE 107 U/L (45-117); BUN 7 mg/dl (7-24); CHLORIDE 106 mmol/L (98-107); CREATININE 0.65 mg/dL (0.55-1.02); LIPASE 36 U/L (73-393); POTASSIUM 3.6 mmol/L (3.5-5.1); SGOT/AST 12 IU/L (3-35); SGPT/ALT 23 U/L (12-78); SODIUM 138 mmol/L (136-145); TOTAL PROTEIN 6.6 gm/dL (6.4-8.2)
[2020-05-07 17:57] LABS: TROPONIN I < 0.015 ng/ml (<0.045)
[2020-05-07 18:06] LABS: ACT PARTIAL THROMBO TIME 30.3 SECONDS (20.0-32.1)
== END 2020-05-07 19:44 | disposition home or self-care (01) ==
LOC: ED 17:01
PROVIDERS: Emergency Medicine
DX: G43.909 Migraine, unspecified, not intractable, without status migrainosus (principal); Z88.2 Allergy status to sulfonamides; Z88.8 Allergy status to other drugs, medicaments and biological substances; Z79.899 Other long term (current) drug therapy; Z87.891 Personal history of nicotine dependence

== ENCOUNTER 2020-05-13 22:44 | Emergency (ER) | payer OTHER ==
[~2020-05-13] VITALS: Ht 154.9 cm; Wt 78.9 kg
[2020-05-13 23:38] LABS: BASO % 0.2 % (0.0-1.0); EOS # 0.1 10*3/uL (0.0-0.4); EOS % 0.8 % (1.0-4.0); HEMATOCRIT 42.9 % (37.0-47.0); LYMPH % 24.3 % (27.0-41.0); MEAN CELL VOLUME 76.6 fl (81.0-99.0); MEAN CORPUSCULAR HGB 23.2 pg (27.0-31.0); MEAN CORPUSCULAR HGB CONC 30.3 g/dl (33.0-37.0); MEAN PLATELET VOLUME 9.9 fl (9.6-12.3); MONO # 0.7 10*3/uL (0.1-1.0); MONO % 7.7 % (3.0-9.0); NEUT # 5.6 10*3/uL (2.3-7.9); NEUT % 66.6 % (47.0-73.0); PLATELET COUNT AUTOMATED 219 10*3/uL (130-400); RED CELL DISTRI WIDTH 16.4 % (0-14.5); WHITE BLOOD COUNT 8.4 10*3/uL (4.8-10.8)
[2020-05-13 23:54] LABS: ALBUMIN 2.9 gm/dl (3.1-4.5); ALKALINE PHOSPHATASE 123 U/L (45-117); BUN 6 mg/dl (7-24); CHLORIDE 105 mmol/L (98-107); CREATININE 0.61 mg/dL (0.55-1.02); LIPASE 43 U/L (73-393); SGOT/AST 28 IU/L (3-35); SGPT/ALT 20 U/L (12-78); SODIUM 143 mmol/L (136-145)
[2020-05-14] MEDS ORDERED: REGLAN10 M1 PO (00:38)
[2020-05-14] MEDS ORDERED: K-TAB20 MEQ PO (00:38)
== END 2020-05-14 01:32 | disposition home or self-care (01) ==
LOC: ED 22:44
PROVIDERS: Physician Assistant
DX: R10.13 Epigastric pain (principal); R11.2 Nausea with vomiting, unspecified; R19.7 Diarrhea, unspecified; R51.9 Headache, unspecified; Z98.84 Bariatric surgery status; Z88.2 Allergy status to sulfonamides; Z88.8 Allergy status to other drugs, medicaments and biological substances; Z79.899 Other long term (current) drug therapy; Z90.49 Acquired absence of other specified parts of digestive tract; Z98.890 Other specified postprocedural states; Z87.891 Personal history of nicotine dependence

== ENCOUNTER → 2020-05-22 | Outpatient (CLI) | payer OTHER ==
[~2020-05-22] MED LIST changes: +K-TAB20 MEQ PO; +REGLAN10 M1 PO
== END | disposition home or self-care (01) ==
LOC: COVID19 14:40
PROVIDERS: ATTEND Internal Medicine
DX: U07.1 COVID-19 (principal)

== ENCOUNTER 2020-08-02 16:31 | Inpatient (IN) | payer OTHER ==
[~2020-08-02] VITALS: Ht 154.9 cm; Wt 73.1 kg
[2020-08-02 16:49] VITALS: BP 166/102
[2020-08-02 17:05] LABS: BASO # 0.1 10*3/uL (0.0-0.1); BASO % 0.6 % (0.0-1.0); EOS # 0.1 10*3/uL (0.0-0.4); EOS % 0.9 % (1.0-4.0); LYMPH # 2.1 10*3/uL (1.3-4.4); LYMPH % 24.3 % (27.0-41.0); MEAN CELL VOLUME 77.8 fl (81.0-99.0); MEAN CORPUSCULAR HGB 24.1 pg (27.0-31.0); MEAN PLATELET VOLUME 9.2 fl (9.6-12.3); MONO # 0.6 10*3/uL (0.1-1.0); NEUT # 5.8 10*3/uL (2.3-7.9); NEUT % 66.9 % (47.0-73.0); PLATELET COUNT AUTOMATED 303 10*3/uL (130-400); RED BLOOD COUNT 5.27 10*6/uL (4.10-5.10); RED CELL DISTRI WIDTH 16.8 % (0-14.5); WHITE BLOOD COUNT 8.6 10*3/uL (4.8-10.8)
[2020-08-02 17:20] LABS: ALBUMIN 3.3 gm/dl (3.1-4.5); ALKALINE PHOSPHATASE 147 U/L (45-117); BUN 5 mg/dl (7-24); CHLORIDE 109 mmol/L (98-107); CPK 52 U/L (26-192); CREATININE 0.65 mg/dL (0.55-1.02); POTASSIUM 3.5 mmol/L (3.5-5.1); SGOT/AST 18 IU/L (3-35); SGPT/ALT 14 U/L (12-78); SODIUM 144 mmol/L (136-145); TOTAL PROTEIN 7.3 gm/dL (6.4-8.2)
[2020-08-02 17:27] LABS: BILIRUBIN Negative (Negative); BLOOD Negative (Negative); CLARITY Clear (Clear); COLOR Dark Yellow (Yellow); GLUCOSE Negative (Negative); KETONE Negative (Negative); LEUKO ESTERASE 1+ (Negative); NITRITE Positive (Negative); PH 7.5 (4.5-8.0)
[2020-08-02 17:28] LABS: ACETAMINOPHEN (TYLENOL) < 5.0 ug/ml (10-30); ETHYL ALCOHOL < 3.0 mg/dl (<3); TROPONIN I < 0.015 ng/ml (<0.045)
[2020-08-02 17:36] LABS: URINE AMPHETAMINES < 1000 (1000ng/ml); URINE BARBITURATES < 200 (200ng/ml); URINE BENZODIAZEPINES < 200 (200ng/ml); URINE CANNABINOIDS (THC) < 50 (50ng/ml); URINE COCAINE < 300 (300ng/ml); URINE METHADONE < 300 (300ng/ml); URINE OPIATES < 300 (300ng/ml)
[2020-08-02 17:43] LABS: URINE PHENCYCLIDINE < 25 (25ng/ml)
[2020-08-02 17:59] LABS: BACTERIA 1+
[2020-08-02 20:01] VITALS: BP 134/79
[2020-08-03 00:51] VITALS: BP 137/84
[2020-08-03 05:14] LABS: ALBUMIN 3.1 gm/dl (3.1-4.5); ALKALINE PHOSPHATASE 144 U/L (45-117); BUN 5 mg/dl (7-24); CHLORIDE 110 mmol/L (98-107); CREATININE 0.61 mg/dL (0.55-1.02); IRON 33 ug/dL (50-170); POTASSIUM 3.5 mmol/L (3.5-5.1); SGOT/AST 12 IU/L (3-35); SGPT/ALT 13 U/L (12-78); SODIUM 145 mmol/L (136-145); TOTAL IRON BINDING CAPACITY 368 ug/dl (250-450); TOTAL PROTEIN 6.8 gm/dL (6.4-8.2)
[2020-08-03 06:22] LABS: BASO # 0.1 10*3/uL (0.0-0.1); BASO % 0.5 % (0.0-1.0); EOS # 0.1 10*3/uL (0.0-0.4); EOS % 1.5 % (1.0-4.0); HEMATOCRIT 39.8 % (37.0-47.0); LYMPH # 2.2 10*3/uL (1.3-4.4); LYMPH % 23.5 % (27.0-41.0); MEAN CELL VOLUME 77.7 fl (81.0-99.0); MEAN CORPUSCULAR HGB 24.2 pg (27.0-31.0); MEAN CORPUSCULAR HGB CONC 31.2 g/dl (33.0-37.0); MEAN PLATELET VOLUME 9.8 fl (9.6-12.3); MONO # 0.8 10*3/uL (0.1-1.0); MONO % 8.3 % (3.0-9.0); NEUT # 6.1 10*3/uL (2.3-7.9); NEUT % 65.8 % (47.0-73.0); PLATELET COUNT AUTOMATED 306 10*3/uL (130-400); RED BLOOD COUNT 5.12 10*6/uL (4.10-5.10); RED CELL DISTRI WIDTH 16.9 % (0-14.5); WHITE BLOOD COUNT 9.3 10*3/uL (4.8-10.8)
[2020-08-03 06:27] VITALS: BP 126/68
[2020-08-03 06:53] LABS: FERRITIN 14.2 ng/mL (10.0-291.0)
[2020-08-03] MEDS ORDERED: FLUOXETINE HCL40 MG PO (09:39)
[2020-08-03 20:00] VITALS: BP 144/81
[2020-08-04] VITALS: BP 138/79
[2020-08-04 08:00] VITALS: BP 149/99
[2020-08-04] MEDS ORDERED: PHARMASSURE FO0.4 MG PO (11:06)
[2020-08-04] MEDS ORDERED: CIPRO250 MG PO (11:06)
[2020-08-31] MEDS ORDERED: Meclizine25 MG PO (10:13)
== END 2020-08-04 11:44 | disposition home or self-care (01) | DRG 463 ==
LOC: ED 16:31 → EDHOLD 18:17 → 4E 08-03 14:34
PROVIDERS: Family Medicine; Internal Medicine; ADMIT Family Medicine; ATTEND Family Medicine
DX: N39.0 Urinary tract infection, site not specified (principal); G93.41 Metabolic encephalopathy; E44.0 Moderate protein-calorie malnutrition; K25.7 Chronic gastric ulcer without hemorrhage or perforation; E78.5 Hyperlipidemia, unspecified; E66.9 Obesity, unspecified; G43.909 Migraine, unspecified, not intractable, without status migrainosus; E87.8 Other disorders of electrolyte and fluid balance, not elsewhere classified; I10 Essential (primary) hypertension; R74.8 Abnormal levels of other serum enzymes; E66.3 Overweight; E55.9 Vitamin D deficiency, unspecified; F33.9 Major depressive disorder, recurrent, unspecified; F41.1 Generalized anxiety disorder; D50.9 Iron deficiency anemia, unspecified; Z98.84 Bariatric surgery status; Z88.2 Allergy status to sulfonamides; Z88.8 Allergy status to other drugs, medicaments and biological substances; Z90.49 Acquired absence of other specified parts of digestive tract; Z90.721 Acquired absence of ovaries, unilateral; Z98.891 History of uterine scar from previous surgery; Z87.891 Personal history of nicotine dependence; Z80.8 Family history of malignant neoplasm of other organs or systems; Z68.30 Body mass index [BMI] 30.0-30.9, adult

== ENCOUNTER → 2020-08-31 | Outpatient (CLI) | payer OTHER ==
[~2020-08-31] MED LIST changes: +ARIPIPRAZOLE20 MG PO; +FLUOXETINE HCL40 MG PO; +METHYLFOLATE PO; +Meclizine25 MG PO; +PHARMASSURE FO0.4 MG PO; +POTASSIUM CHLO20 ME4 PO
== END | disposition home or self-care (01) ==
LOC: CARD 02:21
PROVIDERS: ATTEND Family Medicine
DX: R42 Dizziness and giddiness (principal); R06.02 Shortness of breath

== ENCOUNTER 2020-09-17 15:37 | Observation (INO) | payer OTHER ==
[~2020-09-17] VITALS: Ht 154.9 cm; Wt 73.5 kg
[~2020-09-17 15:37] MED LIST changes: -ARIPIPRAZOLE20 MG PO; -METHYLFOLATE PO; -POTASSIUM CHLO20 ME4 PO
[2020-09-17 15:44] VITALS: BP 167/98
[2020-09-17 16:18] LABS: BASO % 0.4 % (0.0-1.0); EOS % 0.3 % (1.0-4.0); HEMATOCRIT 39.2 % (37.0-47.0); LYMPH # 1.2 10*3/uL (1.3-4.4); LYMPH % 11.1 % (27.0-41.0); MEAN CELL VOLUME 77.3 fl (81.0-99.0); MEAN CORPUSCULAR HGB 24.1 pg (27.0-31.0); MEAN CORPUSCULAR HGB CONC 31.1 g/dl (33.0-37.0); MEAN PLATELET VOLUME 9.2 fl (9.6-12.3); MONO # 0.5 10*3/uL (0.1-1.0); MONO % 5.1 % (3.0-9.0); NEUT # 8.7 10*3/uL (2.3-7.9); NEUT % 82.6 % (47.0-73.0); PLATELET COUNT AUTOMATED 282 10*3/uL (130-400); RED BLOOD COUNT 5.07 10*6/uL (4.10-5.10); WHITE BLOOD COUNT 10.5 10*3/uL (4.8-10.8)
[2020-09-17 16:29] LABS: ACT PARTIAL THROMBO TIME 28.6 SECONDS (20.0-32.1); INTERNATIONAL NORM RATIO 1.1 (2.0-3.5)
[2020-09-17 16:34] LABS: ALBUMIN 2.9 gm/dl (3.1-4.5); ALKALINE PHOSPHATASE 123 U/L (45-117); BUN 5 mg/dl (7-24); CHLORIDE 107 mmol/L (98-107); CREATININE 0.54 mg/dL (0.55-1.02); LIPASE 58 U/L (73-393); POTASSIUM 2.8 mmol/L (3.5-5.1); SGOT/AST 11 IU/L (3-35); SGPT/ALT 13 U/L (12-78); SODIUM 141 mmol/L (136-145); TOTAL PROTEIN 6.6 gm/dL (6.4-8.2); TROPONIN I < 0.015 ng/ml (<0.045)
[2020-09-17 16:49] LABS: BILIRUBIN Negative (Negative); BLOOD Negative (Negative); CLARITY Cloudy (Clear); COLOR Yellow (Yellow); GLUCOSE Negative (Negative); KETONE 2+ (Negative); LEUKO ESTERASE Negative (Negative); NITRITE Negative (Negative); PH 6.5 (4.5-8.0); SPECIFIC GRAVITY 1.015 (1.001-1.030)
[2020-09-17 16:55] LABS: BACTERIA TRACE; MUCOUS TRACE; RBC 0-2 rbc/hpf (0-2); WBC 0-2 wbc/hpf (0-5)
[2020-09-17 16:57] LABS: URINE AMPHETAMINES < 1000 (1000ng/ml); URINE BARBITURATES < 200 (200ng/ml); URINE BENZODIAZEPINES > 200 (200ng/ml); URINE CANNABINOIDS (THC) < 50 (50ng/ml); URINE COCAINE > 300 (300ng/ml); URINE METHADONE < 300 (300ng/ml); URINE OPIATES < 300 (300ng/ml)
[2020-09-17 16:58] LABS: URINE PHENCYCLIDINE < 25 (25ng/ml)
[2020-09-17 19:15] VITALS: BP 158/91
[2020-09-17 20:21] VITALS: BP 156/91
[2020-09-17 21:15] VITALS: BP 149/88
[2020-09-17 21:41] VITALS: BP 159/98
[2020-09-17 22:19] LABS: BUN 4 mg/dl (7-24); CHLORIDE 112 mmol/L (98-107); CREATININE 0.48 mg/dL (0.55-1.02); SODIUM 144 mmol/L (136-145)
[2020-09-17 22:24] LABS: POTASSIUM 3.8 mmol/L (3.5-5.1)
[2020-09-17 22:42] LABS: ABG BASE EXCESS -1.7 mmol/L (-2.0-2.0); ARTERIAL BLOOD GAS PH 7.434 (7.35-7.45); ARTERIAL BLOOD GAS PO2 75.8 (80-90)
[2020-09-18] VITALS: BP 157/89
[2020-09-18 06:05] LABS: BASO % 0.4 % (0.0-1.0); EOS # 0.1 10*3/uL (0.0-0.4); HEMATOCRIT 37.1 % (37.0-47.0); LYMPH % 27.9 % (27.0-41.0); MEAN CELL VOLUME 78.6 fl (81.0-99.0); MEAN CORPUSCULAR HGB 23.7 pg (27.0-31.0); MEAN CORPUSCULAR HGB CONC 30.2 g/dl (33.0-37.0); MONO # 0.5 10*3/uL (0.1-1.0); MONO % 7.6 % (3.0-9.0); NEUT # 4.4 10*3/uL (2.3-7.9); NEUT % 61.8 % (47.0-73.0); PLATELET COUNT AUTOMATED 281 10*3/uL (130-400); RED BLOOD COUNT 4.72 10*6/uL (4.10-5.10); RED CELL DISTRI WIDTH 15.1 % (0-14.5); WHITE BLOOD COUNT 7.1 10*3/uL (4.8-10.8)
[2020-09-18 06:26] LABS: ALBUMIN 2.7 gm/dl (3.1-4.5); BUN 3 mg/dl (7-24); CHLORIDE 112 mmol/L (98-107); POTASSIUM 3.3 mmol/L (3.5-5.1); SODIUM 142 mmol/L (136-145)
[2020-09-18 06:35] LABS: ALKALINE PHOSPHATASE 111 U/L (45-117); CHOLESTEROL 184 mg/dL (<200); CREATININE 0.47 mg/dL (0.55-1.02); HDL CHOLESTEROL 51 mg/dl (40-60); LDL CHOLESTEROL 115 mg/dL (9-159); SGOT/AST 10 IU/L (3-35); SGPT/ALT 11 U/L (12-78); THYROID STIM HORMONE (HS) 0.228 uIU/ml (0.358-4.75); TOTAL PROTEIN 5.9 gm/dL (6.4-8.2); TRIGLYCERIDES 88 mg/dl (<150); VLDL CHOLESTEROL 18 mg/dL (6-40)
[2020-09-18 08:00] VITALS: BP 141/89
== END 2020-09-18 11:28 | disposition home or self-care (01) ==
LOC: ED 15:37 → EDHOLD 17:12 → 5E 20:27
PROVIDERS: Emergency Medicine; Social Worker Clinical; ADMIT Internal Medicine; ATTEND Internal Medicine
DX: U07.1 COVID-19 (principal); G93.41 Metabolic encephalopathy; N39.0 Urinary tract infection, site not specified; F19.10 Other psychoactive substance abuse, uncomplicated; E87.6 Hypokalemia; R00.0 Tachycardia, unspecified; R06.82 Tachypnea, not elsewhere classified; R65.10 Systemic inflammatory response syndrome (SIRS) of non-infectious origin without acute organ dysfunction; R71.8 Other abnormality of red blood cells; D72.9 Disorder of white blood cells, unspecified; R73.9 Hyperglycemia, unspecified; E44.1 Mild protein-calorie malnutrition; R82.4 Acetonuria; F32.9 Major depressive disorder, single episode, unspecified; F41.9 Anxiety disorder, unspecified; R30.0 Dysuria; Z98.890 Other specified postprocedural states; Z79.899 Other long term (current) drug therapy; Z87.891 Personal history of nicotine dependence

== ENCOUNTER 2020-10-11 14:03 | Inpatient (IN) | payer OTHER ==
[~2020-10-11] VITALS: Ht 154.9 cm; Wt 73.0 kg
[2020-10-11 16:06] LABS: BASO # 0.1 10*3/uL (0.0-0.1); BASO % 0.6 % (0.0-1.0); EOS % 0.4 % (1.0-4.0); HEMATOCRIT 39.1 % (37.0-47.0); LYMPH # 2.1 10*3/uL (1.3-4.4); LYMPH % 23.7 % (27.0-41.0); MEAN CELL VOLUME 75.3 fl (81.0-99.0); MEAN CORPUSCULAR HGB 23.5 pg (27.0-31.0); MEAN CORPUSCULAR HGB CONC 31.2 g/dl (33.0-37.0); MEAN PLATELET VOLUME 9.5 fl (9.6-12.3); MONO # 0.6 10*3/uL (0.1-1.0); MONO % 7.1 % (3.0-9.0); NEUT % 67.8 % (47.0-73.0); PLATELET COUNT AUTOMATED 362 10*3/uL (130-400); RED BLOOD COUNT 5.19 10*6/uL (4.10-5.10); RED CELL DISTRI WIDTH 14.9 % (0-14.5); WHITE BLOOD COUNT 8.9 10*3/uL (4.8-10.8)
[2020-10-11 16:23] LABS: ALBUMIN 2.8 gm/dl (3.1-4.5); ALKALINE PHOSPHATASE 155 U/L (45-117); BUN 10 mg/dl (7-24); CHLORIDE 105 mmol/L (98-107); CREATININE 0.66 mg/dL (0.55-1.02); LIPASE 73 U/L (73-393); POTASSIUM 3.6 mmol/L (3.5-5.1); SGOT/AST 9 IU/L (3-35); SGPT/ALT 10 U/L (12-78); SODIUM 139 mmol/L (136-145); TOTAL PROTEIN 7.2 gm/dL (6.4-8.2)
[2020-10-11 18:57] VITALS: BP 121/76
[2020-10-11 20:26] VITALS: BP 109/61
[2020-10-11 20:37] LABS: BILIRUBIN Negative (Negative); BLOOD Negative (Negative); CLARITY Clear (Clear); COLOR Yellow (Yellow); GLUCOSE Negative (Negative); KETONE 2+ (Negative); LEUKO ESTERASE Negative (Negative); NITRITE Negative (Negative); PH 5.5 (4.5-8.0); SPECIFIC GRAVITY >= 1.030 (1.001-1.030)
[2020-10-11 20:56] LABS: BACTERIA TRACE; CALCIUM OXALATE CRYSTALS 1+; HYALINE CAST 0-2; MUCOUS TRACE
[2020-10-11 20:57] LABS: WBC 0-2 wbc/hpf (0-5)
[2020-10-11 22:04] VITALS: BP 127/86
[2020-10-11] MEDS ORDERED: POTASSIUM CHLO20 ME4 PO (22:14)
[2020-10-11] MEDS ORDERED: FLUOXETINE HCL40 MG PO (22:16)
[2020-10-11] MEDS ORDERED: ARIPIPRAZOLE20 MG PO (22:17)
[2020-10-11] MEDS ORDERED: METHYLFOLATE PO (22:17)
[2020-10-11] MEDS ORDERED: HYDROXYZINE PAM50 MG PO (22:18)
[2020-10-12 06:39] LABS: BASO % 0.3 % (0.0-1.0); EOS # 0.1 10*3/uL (0.0-0.4); EOS % 0.6 % (1.0-4.0); HEMATOCRIT 36.3 % (37.0-47.0); LYMPH # 2.2 10*3/uL (1.3-4.4); LYMPH % 21.6 % (27.0-41.0); MEAN CELL VOLUME 76.3 fl (81.0-99.0); MEAN CORPUSCULAR HGB 23.5 pg (27.0-31.0); MEAN CORPUSCULAR HGB CONC 30.9 g/dl (33.0-37.0); MEAN PLATELET VOLUME 9.8 fl (9.6-12.3); MONO # 0.7 10*3/uL (0.1-1.0); MONO % 7.1 % (3.0-9.0); NEUT % 70.1 % (47.0-73.0); PLATELET COUNT AUTOMATED 332 10*3/uL (130-400); RED BLOOD COUNT 4.76 10*6/uL (4.10-5.10)
[2020-10-12 06:51] LABS: INTERNATIONAL NORM RATIO 1.8 (2.0-3.5)
[2020-10-12 06:57] LABS: ALBUMIN 2.4 gm/dl (3.1-4.5); ALKALINE PHOSPHATASE 295 U/L (45-117); BUN 6 mg/dl (7-24); CHLORIDE 107 mmol/L (98-107); CREATININE 0.49 mg/dL (0.55-1.02); POTASSIUM 3.5 mmol/L (3.5-5.1); SGOT/AST 21 IU/L (3-35); SGPT/ALT 15 U/L (12-78); SODIUM 138 mmol/L (136-145); TOTAL PROTEIN 6.3 gm/dL (6.4-8.2)
[2020-10-12 08:00] VITALS: BP 137/72
[2020-10-12 12:00] VITALS: BP 121/67
[2020-10-12 16:00] VITALS: BP 136/84
[2020-10-12 20:00] VITALS: BP 135/85
[2020-10-13] VITALS: BP 153/81
[2020-10-13 06:40] LABS: BASO % 0.4 % (0.0-1.0); EOS # 0.1 10*3/uL (0.0-0.4); EOS % 1.2 % (1.0-4.0); MEAN CELL VOLUME 75.7 fl (81.0-99.0); MEAN CORPUSCULAR HGB 23.3 pg (27.0-31.0); MEAN CORPUSCULAR HGB CONC 30.8 g/dl (33.0-37.0); MEAN PLATELET VOLUME 9.4 fl (9.6-12.3); MONO # 0.6 10*3/uL (0.1-1.0); MONO % 7.6 % (3.0-9.0); NEUT # 4.6 10*3/uL (2.3-7.9); NEUT % 63.4 % (47.0-73.0); PLATELET COUNT AUTOMATED 347 10*3/uL (130-400); RED BLOOD COUNT 4.89 10*6/uL (4.10-5.10); RED CELL DISTRI WIDTH 15.3 % (0-14.5); WHITE BLOOD COUNT 7.3 10*3/uL (4.8-10.8)
[2020-10-13 06:56] LABS: BUN 4 mg/dl (7-24); CHLORIDE 105 mmol/L (98-107); POTASSIUM 3.8 mmol/L (3.5-5.1); SODIUM 140 mmol/L (136-145)
[2020-10-13 08:00] VITALS: BP 126/89
[2020-10-13 12:00] VITALS: BP 146/87
[2020-10-13 16:00] VITALS: BP 151/86
[2020-10-13 20:00] VITALS: BP 144/87
[2020-10-14] VITALS (8 sets, daily range): BP systolic 120–154; BP diastolic 77–98
[2020-10-14 08:38] LABS: BASO # 0.1 10*3/uL (0.0-0.1); BASO % 0.5 % (0.0-1.0); EOS # 0.2 10*3/uL (0.0-0.4); EOS % 1.9 % (1.0-4.0); HEMATOCRIT 41.2 % (37.0-47.0); LYMPH # 2.2 10*3/uL (1.3-4.4); LYMPH % 23.1 % (27.0-41.0); MEAN CORPUSCULAR HGB CONC 30.6 g/dl (33.0-37.0); MEAN PLATELET VOLUME 8.9 fl (9.6-12.3); MONO # 0.8 10*3/uL (0.1-1.0); MONO % 8.1 % (3.0-9.0); NEUT # 6.3 10*3/uL (2.3-7.9); NEUT % 65.7 % (47.0-73.0); PLATELET COUNT AUTOMATED 377 10*3/uL (130-400); RED BLOOD COUNT 5.49 10*6/uL (4.10-5.10); RED CELL DISTRI WIDTH 15.7 % (0-14.5); WHITE BLOOD COUNT 9.6 10*3/uL (4.8-10.8)
[2020-10-14 08:54] LABS: ALBUMIN 2.7 gm/dl (3.1-4.5); ALKALINE PHOSPHATASE 327 U/L (45-117); BUN 4 mg/dl (7-24); CHLORIDE 106 mmol/L (98-107); CREATININE 0.67 mg/dL (0.55-1.02); POTASSIUM 3.6 mmol/L (3.5-5.1); SGOT/AST 27 IU/L (3-35); SGPT/ALT 21 U/L (12-78); SODIUM 141 mmol/L (136-145); TOTAL PROTEIN 6.9 gm/dL (6.4-8.2)
[2020-10-15 08:00] VITALS: BP 141/103
[2020-10-15 12:00] VITALS: BP 133/91
[2020-10-15] MEDS ORDERED: Carafate1 GM PO (13:43)
[2020-10-15] MEDS ORDERED: ACETAMINOPHEN325 M2 PO (13:43)
[2020-10-15] MEDS ORDERED: PROTONIX40 MG PO (14:31)
== END 2020-10-15 15:27 | disposition home health service (06) | DRG 241 ==
LOC: ED 14:03 → EDHOLD 20:33 → 5E 20:33
PROVIDERS: Internal Medicine; Physician Assistant; Student in an Organized Health Care Education/Training Program; ADMIT Internal Medicine; ATTEND Internal Medicine
PROC: 0DJ08ZZ Inspection of Upper Intestinal Tract, Via Natural or Artificial Opening Endoscopic (ICD-10-PCS; principal; 2020-10-14)
DX: K28.9 Gastrojejunal ulcer, unspecified as acute or chronic, without hemorrhage or perforation (principal); E44.0 Moderate protein-calorie malnutrition; R82.4 Acetonuria; E78.5 Hyperlipidemia, unspecified; G43.909 Migraine, unspecified, not intractable, without status migrainosus; F32.9 Major depressive disorder, single episode, unspecified; R00.0 Tachycardia, unspecified; R74.8 Abnormal levels of other serum enzymes; I10 Essential (primary) hypertension; K72.90 Hepatic failure, unspecified without coma; E55.9 Vitamin D deficiency, unspecified; F41.9 Anxiety disorder, unspecified; K76.0 Fatty (change of) liver, not elsewhere classified; K83.8 Other specified diseases of biliary tract; Z98.84 Bariatric surgery status; Z86.16 Personal history of COVID-19; Z88.2 Allergy status to sulfonamides; Z88.8 Allergy status to other drugs, medicaments and biological substances; Z90.49 Acquired absence of other specified parts of digestive tract; Z98.891 History of uterine scar from previous surgery; Z87.891 Personal history of nicotine dependence; Z83.3 Family history of diabetes mellitus; Z82.49 Family history of ischemic heart disease and other diseases of the circulatory system; Z80.8 Family history of malignant neoplasm of other organs or systems; Z87.440 Personal history of urinary (tract) infections; Z90.79 Acquired absence of other genital organ(s); Z79.899 Other long term (current) drug therapy; Z68.30 Body mass index [BMI] 30.0-30.9, adult

== ENCOUNTER 2020-10-27 15:04 | Emergency (ER) | payer OTHER ==
[~2020-10-27] VITALS: Ht 154.9 cm; Wt 71.7 kg
[~2020-10-27 15:04] MED LIST changes: +ACETAMINOPHEN325 M2 PO; +ARIPIPRAZOLE20 MG PO; +METHYLFOLATE PO; +POTASSIUM CHLO20 ME4 PO
[2020-10-27 16:45] LABS: BASO # 0.1 10*3/uL (0.0-0.1); BASO % 0.8 % (0.0-1.0); EOS # 0.2 10*3/uL (0.0-0.4); HEMATOCRIT 38.7 % (37.0-47.0); LYMPH # 2.4 10*3/uL (1.3-4.4); LYMPH % 25.6 % (27.0-41.0); MEAN CELL VOLUME 75.6 fl (81.0-99.0); MEAN CORPUSCULAR HGB 22.9 pg (27.0-31.0); MEAN CORPUSCULAR HGB CONC 30.2 g/dl (33.0-37.0); MEAN PLATELET VOLUME 9.6 fl (9.6-12.3); MONO # 0.7 10*3/uL (0.1-1.0); MONO % 7.3 % (3.0-9.0); NEUT # 5.9 10*3/uL (2.3-7.9); NEUT % 63.8 % (47.0-73.0); PLATELET COUNT AUTOMATED 339 10*3/uL (130-400); RED BLOOD COUNT 5.12 10*6/uL (4.10-5.10); RED CELL DISTRI WIDTH 15.7 % (0-14.5); WHITE BLOOD COUNT 9.2 10*3/uL (4.8-10.8)
[2020-10-27 16:54] LABS: ACT PARTIAL THROMBO TIME 27.3 SECONDS (20.0-32.1)
[2020-10-27 16:55] LABS: ALKALINE PHOSPHATASE 150 U/L (45-117); BUN 7 mg/dl (7-24); CHLORIDE 106 mmol/L (98-107); CPK 28 U/L (26-192); LIPASE 61 U/L (73-393); POTASSIUM 3.8 mmol/L (3.5-5.1); SGOT/AST 13 IU/L (3-35); SGPT/ALT 16 U/L (12-78); SODIUM 139 mmol/L (136-145); TOTAL PROTEIN 6.7 gm/dL (6.4-8.2)
[2020-10-27 17:04] LABS: TROPONIN I < 0.015 ng/ml (<0.045)
[2020-10-27] MEDS ORDERED: REGLAN10 M1 PO (17:48)
== END 2020-10-27 18:10 | disposition home or self-care (01) ==
LOC: ED 15:04
PROVIDERS: Emergency Medicine
DX: K29.70 Gastritis, unspecified, without bleeding (principal); R11.2 Nausea with vomiting, unspecified; R10.13 Epigastric pain; E78.5 Hyperlipidemia, unspecified; I10 Essential (primary) hypertension; G43.909 Migraine, unspecified, not intractable, without status migrainosus; Z87.891 Personal history of nicotine dependence; Z90.49 Acquired absence of other specified parts of digestive tract; Z79.899 Other long term (current) drug therapy; Z88.1 Allergy status to other antibiotic agents; Z88.5 Allergy status to narcotic agent; Z88.8 Allergy status to other drugs, medicaments and biological substances

== ENCOUNTER 2020-12-01 19:58 | Emergency (ER) | payer OTHER ==
[~2020-12-01] VITALS: Ht 152.4 cm; Wt 69.4 kg
[2020-12-01 20:23] LABS: BASO # 0.1 10*3/uL (0.0-0.1); BASO % 0.5 % (0.0-1.0); EOS # 0.1 10*3/uL (0.0-0.4); EOS % 0.8 % (1.0-4.0); HEMATOCRIT 37.9 % (37.0-47.0); LYMPH # 2.7 10*3/uL (1.3-4.4); LYMPH % 26.9 % (27.0-41.0); MEAN CELL VOLUME 72.9 fl (81.0-99.0); MEAN CORPUSCULAR HGB 22.3 pg (27.0-31.0); MEAN CORPUSCULAR HGB CONC 30.6 g/dl (33.0-37.0); MEAN PLATELET VOLUME 9.5 fl (9.6-12.3); MONO % 9.7 % (3.0-9.0); NEUT # 6.3 10*3/uL (2.3-7.9); NEUT % 61.9 % (47.0-73.0); PLATELET COUNT AUTOMATED 329 10*3/uL (130-400); RED CELL DISTRI WIDTH 16.3 % (0-14.5); WHITE BLOOD COUNT 10.1 10*3/uL (4.8-10.8)
[2020-12-01 20:37] LABS: ALBUMIN 2.7 gm/dl (3.1-4.5); ALKALINE PHOSPHATASE 175 U/L (45-117); BUN 5 mg/dl (7-24); CHLORIDE 107 mmol/L (98-107); CREATININE 0.49 mg/dL (0.55-1.02); LIPASE 45 U/L (73-393); POTASSIUM 3.7 mmol/L (3.5-5.1); SGOT/AST 13 IU/L (3-35); SGPT/ALT 12 U/L (12-78); SODIUM 138 mmol/L (136-145); TOTAL PROTEIN 6.9 gm/dL (6.4-8.2)
== END 2020-12-02 11:04 | disposition short-term general hospital (02) ==
LOC: ED 19:58
PROVIDERS: Internal Medicine
DX: K63.1 Perforation of intestine (nontraumatic) (principal); E88.09 Other disorders of plasma-protein metabolism, not elsewhere classified; R71.8 Other abnormality of red blood cells; Z98.84 Bariatric surgery status; Z88.2 Allergy status to sulfonamides; Z88.8 Allergy status to other drugs, medicaments and biological substances; Z79.899 Other long term (current) drug therapy; Z90.49 Acquired absence of other specified parts of digestive tract; Z98.890 Other specified postprocedural states; Z87.891 Personal history of nicotine dependence

== ENCOUNTER 2020-12-08 22:41 | Inpatient (IN) | payer OTHER ==
[~2020-12-08] VITALS: Ht 154.9 cm; Wt 70.3 kg
[2020-12-08 22:49] VITALS: BP 172/111
[2020-12-08 22:50] VITALS: BP 159/84
[2020-12-08 23:22] LABS: BASO % 0.3 % (0.0-1.0); EOS % 0.2 % (1.0-4.0); LYMPH # 1.2 10*3/uL (1.3-4.4); LYMPH % 9.5 % (27.0-41.0); MEAN CELL VOLUME 74.5 fl (81.0-99.0); MEAN CORPUSCULAR HGB 21.9 pg (27.0-31.0); MEAN CORPUSCULAR HGB CONC 29.4 g/dl (33.0-37.0); MEAN PLATELET VOLUME 9.5 fl (9.6-12.3); MONO # 1.2 10*3/uL (0.1-1.0); MONO % 9.4 % (3.0-9.0); NEUT # 10.2 10*3/uL (2.3-7.9); NEUT % 79.4 % (47.0-73.0); PLATELET COUNT AUTOMATED 395 10*3/uL (130-400); RED CELL DISTRI WIDTH 16.8 % (0-14.5); WHITE BLOOD COUNT 12.9 10*3/uL (4.8-10.8)
[2020-12-08 23:42] LABS: ALBUMIN 2.2 gm/dl (3.1-4.5); ALKALINE PHOSPHATASE 193 U/L (45-117); BUN 3 mg/dl (7-24); CHLORIDE 103 mmol/L (98-107); CREATININE 0.41 mg/dL (0.55-1.02); POTASSIUM 3.4 mmol/L (3.5-5.1); SGOT/AST 18 IU/L (3-35); SGPT/ALT 22 U/L (12-78); SODIUM 138 mmol/L (136-145); TOTAL PROTEIN 6.7 gm/dL (6.4-8.2)
[2020-12-08 23:45] LABS: TROPONIN I < 0.015 ng/ml (<0.045)
[2020-12-09] VITALS (10 sets, daily range): BP systolic 152–176; BP diastolic 86–100
[2020-12-09 06:26] LABS: BASO # 0.1 10*3/uL (0.0-0.1); BASO % 0.4 % (0.0-1.0); EOS # 0.1 10*3/uL (0.0-0.4); EOS % 0.5 % (1.0-4.0); HEMATOCRIT 35.2 % (37.0-47.0); LYMPH # 1.6 10*3/uL (1.3-4.4); MEAN CELL VOLUME 74.4 fl (81.0-99.0); MEAN CORPUSCULAR HGB 22.2 pg (27.0-31.0); MEAN CORPUSCULAR HGB CONC 29.8 g/dl (33.0-37.0); MEAN PLATELET VOLUME 8.8 fl (9.6-12.3); MONO # 1.1 10*3/uL (0.1-1.0); MONO % 9.5 % (3.0-9.0); NEUT # 8.6 10*3/uL (2.3-7.9); NEUT % 74.3 % (47.0-73.0); PLATELET COUNT AUTOMATED 444 10*3/uL (130-400); RED BLOOD COUNT 4.73 10*6/uL (4.10-5.10); WHITE BLOOD COUNT 11.6 10*3/uL (4.8-10.8)
[2020-12-09 06:50] LABS: BUN 1 mg/dl (7-24); CHLORIDE 102 mmol/L (98-107); CREATININE 0.39 mg/dL (0.55-1.02); POTASSIUM 3.4 mmol/L (3.5-5.1); SODIUM 138 mmol/L (136-145)
[2020-12-09] MEDS ORDERED: DULCOLAX STOOL100 M1 PO (08:43)
[2020-12-09] MEDS ORDERED: MIRALAX17 GM PO (08:43)
[2020-12-09] MEDS ORDERED: FAMOTIDINE40 MG PO (08:44)
[2020-12-09] MEDS ORDERED: LISINOPRIL10 M1 PO (08:45)
[2020-12-09] MEDS ORDERED: ZINC SULFATE50 MG PO (08:46)
[2020-12-09] MEDS ORDERED: [UNRECOGNIZED DRUG - OTHER] PO (08:48)
[2020-12-10] VITALS (8 sets, daily range): BP systolic 128–172; BP diastolic 86–110
[2020-12-10 06:18] LABS: BASO # 0.1 10*3/uL (0.0-0.1); BASO % 0.4 % (0.0-1.0); EOS # 0.2 10*3/uL (0.0-0.4); EOS % 1.4 % (1.0-4.0); HEMATOCRIT 37.3 % (37.0-47.0); LYMPH # 1.7 10*3/uL (1.3-4.4); LYMPH % 12.4 % (27.0-41.0); MEAN CELL VOLUME 72.7 fl (81.0-99.0); MEAN CORPUSCULAR HGB 21.8 pg (27.0-31.0); MEAN PLATELET VOLUME 8.8 fl (9.6-12.3); MONO # 1.4 10*3/uL (0.1-1.0); MONO % 10.1 % (3.0-9.0); NEUT # 10.1 10*3/uL (2.3-7.9); NEUT % 74.8 % (47.0-73.0); PLATELET COUNT AUTOMATED 400 10*3/uL (130-400); RED BLOOD COUNT 5.13 10*6/uL (4.10-5.10); RED CELL DISTRI WIDTH 17.2 % (0-14.5); WHITE BLOOD COUNT 13.4 10*3/uL (4.8-10.8)
[2020-12-10 06:31] LABS: ALBUMIN 2.2 gm/dl (3.1-4.5); ALKALINE PHOSPHATASE 209 U/L (45-117); BILIRUBIN, DIRECT 0.1 mg/dL (0.0-0.2); BUN 3 mg/dl (7-24); CHLORIDE 102 mmol/L (98-107); CREATININE 0.27 mg/dL (0.55-1.02); LIPASE 69 U/L (73-393); POTASSIUM 3.4 mmol/L (3.5-5.1); SGOT/AST 15 IU/L (3-35); SGPT/ALT 19 U/L (12-78); SODIUM 134 mmol/L (136-145); TOTAL PROTEIN 6.9 gm/dL (6.4-8.2)
[2020-12-10 06:50] LABS: ACT PARTIAL THROMBO TIME 43.6 SECONDS (20.0-32.1); INTERNATIONAL NORM RATIO 1.5 (2.0-3.5)
[2020-12-11] VITALS: BP 130/87
[2020-12-11 07:48] LABS: BASO # 0.1 10*3/uL (0.0-0.1); BASO % 0.4 % (0.0-1.0); EOS # 0.3 10*3/uL (0.0-0.4); EOS % 2.2 % (1.0-4.0); LYMPH % 13.5 % (27.0-41.0); MEAN CELL VOLUME 73.3 fl (81.0-99.0); MEAN CORPUSCULAR HGB 21.8 pg (27.0-31.0); MEAN CORPUSCULAR HGB CONC 29.7 g/dl (33.0-37.0); MEAN PLATELET VOLUME 8.5 fl (9.6-12.3); MONO # 1.2 10*3/uL (0.1-1.0); MONO % 7.9 % (3.0-9.0); NEUT # 11.3 10*3/uL (2.3-7.9); NEUT % 74.8 % (47.0-73.0); PLATELET COUNT AUTOMATED 426 10*3/uL (130-400); RED BLOOD COUNT 5.32 10*6/uL (4.10-5.10); RED CELL DISTRI WIDTH 17.3 % (0-14.5); WHITE BLOOD COUNT 15.1 10*3/uL (4.8-10.8)
[2020-12-11 08:04] LABS: ALBUMIN 2.2 gm/dl (3.1-4.5); ALKALINE PHOSPHATASE 191 U/L (45-117); BUN 5 mg/dl (7-24); CHLORIDE 103 mmol/L (98-107); CREATININE 0.46 mg/dL (0.55-1.02); POTASSIUM 3.4 mmol/L (3.5-5.1); SGOT/AST 16 IU/L (3-35); SGPT/ALT 17 U/L (12-78); SODIUM 136 mmol/L (136-145); TOTAL PROTEIN 6.8 gm/dL (6.4-8.2)
[2020-12-11 08:34] VITALS: BP 142/86
[2020-12-11 12:00] VITALS: BP 156/96
[2020-12-11 16:32] VITALS: BP 154/65
[2020-12-11 20:00] VITALS: BP 139/91
[2020-12-12] VITALS: BP 133/84
[2020-12-12 08:00] VITALS: BP 126/84
[2020-12-12 09:32] LABS: BASO # 0.1 10*3/uL (0.0-0.1); BASO % 0.5 % (0.0-1.0); EOS # 0.4 10*3/uL (0.0-0.4); EOS % 3.3 % (1.0-4.0); HEMATOCRIT 35.7 % (37.0-47.0); LYMPH # 2.1 10*3/uL (1.3-4.4); MEAN CELL VOLUME 75.5 fl (81.0-99.0); MEAN CORPUSCULAR HGB CONC 29.1 g/dl (33.0-37.0); MEAN PLATELET VOLUME 8.7 fl (9.6-12.3); NEUT # 8.5 10*3/uL (2.3-7.9); NEUT % 69.3 % (47.0-73.0); PLATELET COUNT AUTOMATED 441 10*3/uL (130-400); RED BLOOD COUNT 4.73 10*6/uL (4.10-5.10); RED CELL DISTRI WIDTH 17.2 % (0-14.5); WHITE BLOOD COUNT 12.3 10*3/uL (4.8-10.8)
[2020-12-12 09:48] LABS: ALBUMIN 1.9 gm/dl (3.1-4.5); ALKALINE PHOSPHATASE 178 U/L (45-117); BUN 5 mg/dl (7-24); CHLORIDE 103 mmol/L (98-107); CREATININE 0.55 mg/dL (0.55-1.02); POTASSIUM 3.2 mmol/L (3.5-5.1); SGOT/AST 12 IU/L (3-35); SGPT/ALT 13 U/L (12-78); SODIUM 135 mmol/L (136-145); TOTAL PROTEIN 6.3 gm/dL (6.4-8.2)
[2020-12-12 12:00] VITALS: BP 142/93
[2020-12-12 16:00] VITALS: BP 137/90
== END 2020-12-12 18:48 | disposition short-term general hospital (02) | DRG 720 ==
LOC: ED 22:41 → 4E 12-09 05:55 → EDHOLD 12-09 05:55 → 4E 12-09 07:53
PROVIDERS: Emergency Medicine; Internal Medicine; Registered Nurse; ADMIT Student in an Organized Health Care Education/Training Program; ATTEND Student in an Organized Health Care Education/Training Program
DX: A41.9 Sepsis, unspecified organism (principal); K75.0 Abscess of liver; E43 Unspecified severe protein-calorie malnutrition; K21.9 Gastro-esophageal reflux disease without esophagitis; E78.2 Mixed hyperlipidemia; I10 Essential (primary) hypertension; F32.9 Major depressive disorder, single episode, unspecified; F41.9 Anxiety disorder, unspecified; G43.909 Migraine, unspecified, not intractable, without status migrainosus; E87.6 Hypokalemia; R73.9 Hyperglycemia, unspecified; Z86.16 Personal history of COVID-19; Z90.49 Acquired absence of other specified parts of digestive tract; Z98.84 Bariatric surgery status; Z98.891 History of uterine scar from previous surgery; Z90.79 Acquired absence of other genital organ(s); Z82.49 Family history of ischemic heart disease and other diseases of the circulatory system; Z83.3 Family history of diabetes mellitus; Z80.8 Family history of malignant neoplasm of other organs or systems; Z88.2 Allergy status to sulfonamides; Z88.8 Allergy status to other drugs, medicaments and biological substances; Z79.899 Other long term (current) drug therapy; Z87.891 Personal history of nicotine dependence; Z68.29 Body mass index [BMI] 29.0-29.9, adult

== ENCOUNTER 2020-12-20 20:43 | Inpatient (IN) | payer OTHER ==
[~2020-12-20] VITALS: Ht 154.9 cm; Wt 63.6 kg
[~2020-12-20 20:43] MED LIST changes: +DULCOLAX STOOL100 M1 PO; +FAMOTIDINE40 MG PO; +LISINOPRIL10 M1 PO; +MIRALAX17 GM PO; +ZINC SULFATE50 MG PO; +[UNRECOGNIZED DRUG - OTHER] PO
[2020-12-20 21:03] VITALS: BP 120/92
[2020-12-20 21:30] LABS: BASO # 0.1 10*3/uL (0.0-0.1); EOS # 0.2 10*3/uL (0.0-0.4); EOS % 2.6 % (1.0-4.0); HEMATOCRIT 39.5 % (37.0-47.0); LYMPH # 2.7 10*3/uL (1.3-4.4); LYMPH % 31.1 % (27.0-41.0); MEAN CELL VOLUME 74.1 fl (81.0-99.0); MEAN CORPUSCULAR HGB 21.8 pg (27.0-31.0); MEAN CORPUSCULAR HGB CONC 29.4 g/dl (33.0-37.0); MEAN PLATELET VOLUME 8.8 fl (9.6-12.3); MONO # 0.9 10*3/uL (0.1-1.0); MONO % 10.6 % (3.0-9.0); NEUT # 4.8 10*3/uL (2.3-7.9); NEUT % 54.1 % (47.0-73.0); PLATELET COUNT AUTOMATED 510 10*3/uL (130-400); RED BLOOD COUNT 5.33 10*6/uL (4.10-5.10); RED CELL DISTRI WIDTH 18.9 % (0-14.5); WHITE BLOOD COUNT 8.8 10*3/uL (4.8-10.8)
[2020-12-20 21:44] LABS: ALBUMIN 2.8 gm/dl (3.1-4.5); ALKALINE PHOSPHATASE 125 U/L (45-117); BUN 7 mg/dl (7-24); CHLORIDE 109 mmol/L (98-107); CREATININE 0.55 mg/dL (0.55-1.02); LIPASE 79 U/L (73-393); POTASSIUM 3.2 mmol/L (3.5-5.1); SGOT/AST 18 IU/L (3-35); SGPT/ALT 11 U/L (12-78); SODIUM 144 mmol/L (136-145); TOTAL PROTEIN 7.3 gm/dL (6.4-8.2)
[2020-12-20 22:30] VITALS: BP 118/89
[2020-12-21 00:08] LABS: BILIRUBIN Negative (Negative); BLOOD Negative (Negative); CLARITY Turbid (Clear); COLOR Yellow (Yellow); GLUCOSE Negative (Negative); KETONE Trace (Negative); LEUKO ESTERASE 2+ (Negative); NITRITE Negative (Negative); PH 6.5 (4.5-8.0)
[2020-12-21 00:32] LABS: CALCIUM OXALATE CRYSTALS 1+; EPITHELIAL CELLS 41-50; WBC 16-20 wbc/hpf (0-5)
[2020-12-21 00:33] LABS: YEAST TRACE
[2020-12-21 01:48] VITALS: BP 145/90
[2020-12-21 05:48] LABS: ALBUMIN 2.3 gm/dl (3.1-4.5); BUN 5 mg/dl (7-24); CHLORIDE 114 mmol/L (98-107); CREATININE 0.31 mg/dL (0.55-1.02); POTASSIUM 3.1 mmol/L (3.5-5.1); SGOT/AST 16 IU/L (3-35); SGPT/ALT 9 U/L (12-78); SODIUM 147 mmol/L (136-145)
[2020-12-21 05:50] LABS: ALKALINE PHOSPHATASE 99 U/L (45-117); TOTAL PROTEIN 5.9 gm/dL (6.4-8.2)
[2020-12-21 06:31] LABS: BASO # 0.1 10*3/uL (0.0-0.1); EOS # 0.2 10*3/uL (0.0-0.4); EOS % 2.6 % (1.0-4.0); HEMATOCRIT 32.8 % (37.0-47.0); LYMPH # 2.6 10*3/uL (1.3-4.4); LYMPH % 34.9 % (27.0-41.0); MEAN CELL VOLUME 75.6 fl (81.0-99.0); MEAN CORPUSCULAR HGB 21.9 pg (27.0-31.0); MEAN PLATELET VOLUME 9.3 fl (9.6-12.3); MONO # 0.7 10*3/uL (0.1-1.0); NEUT # 3.8 10*3/uL (2.3-7.9); NEUT % 51.8 % (47.0-73.0); PLATELET COUNT AUTOMATED 363 10*3/uL (130-400); RED BLOOD COUNT 4.34 10*6/uL (4.10-5.10); RED CELL DISTRI WIDTH 18.4 % (0-14.5); WHITE BLOOD COUNT 7.3 10*3/uL (4.8-10.8)
[2020-12-21 08:00] VITALS: BP 145/96
[2020-12-21 12:00] VITALS: BP 172/99
[2020-12-21 16:00] VITALS: BP 144/92
[2020-12-21 20:00] VITALS: BP 136/98
[2020-12-22 06:25] LABS: ALBUMIN 2.5 gm/dl (3.1-4.5); BUN 8 mg/dl (7-24); CHLORIDE 107 mmol/L (98-107); POTASSIUM 3.3 mmol/L (3.5-5.1); SGPT/ALT 8 U/L (12-78); SODIUM 140 mmol/L (136-145)
[2020-12-22 06:28] LABS: ALKALINE PHOSPHATASE 99 U/L (45-117); CREATININE 0.32 mg/dL (0.55-1.02); SGOT/AST 17 IU/L (3-35)
[2020-12-22 08:00] VITALS: BP 145/89
[2020-12-22 12:00] VITALS: BP 128/100
[2020-12-22 16:00] VITALS: BP 153/97
[2020-12-22 20:00] VITALS: BP 140/82
[2020-12-23] VITALS: BP 142/95
[2020-12-23 06:27] LABS: BASO # 0.1 10*3/uL (0.0-0.1); BASO % 1.2 % (0.0-1.0); EOS # 0.7 10*3/uL (0.0-0.4); EOS % 8.6 % (1.0-4.0); HEMATOCRIT 34.7 % (37.0-47.0); LYMPH # 2.2 10*3/uL (1.3-4.4); LYMPH % 26.6 % (27.0-41.0); MEAN CORPUSCULAR HGB 23.3 pg (27.0-31.0); MEAN CORPUSCULAR HGB CONC 29.1 g/dl (33.0-37.0); MEAN PLATELET VOLUME 9.8 fl (9.6-12.3); MONO # 0.8 10*3/uL (0.1-1.0); MONO % 9.4 % (3.0-9.0); NEUT # 4.5 10*3/uL (2.3-7.9); NEUT % 53.8 % (47.0-73.0); PLATELET COUNT AUTOMATED 276 10*3/uL (130-400); RED BLOOD COUNT 4.34 10*6/uL (4.10-5.10); RED CELL DISTRI WIDTH 18.6 % (0-14.5); WHITE BLOOD COUNT 8.4 10*3/uL (4.8-10.8)
[2020-12-23 06:51] LABS: ALBUMIN 2.2 gm/dl (3.1-4.5); ALKALINE PHOSPHATASE 86 U/L (45-117); BUN 9 mg/dl (7-24); CHLORIDE 99 mmol/L (98-107); CREATININE 0.61 mg/dL (0.55-1.02); SGOT/AST 16 IU/L (3-35); SGPT/ALT 12 U/L (12-78); SODIUM 131 mmol/L (136-145)
[2020-12-23 06:57] LABS: POTASSIUM 5.6 mmol/L (3.5-5.1)
[2020-12-23 06:58] LABS: TOTAL PROTEIN 5.8 gm/dL (6.4-8.2)
[2020-12-23 08:00] VITALS: BP 136/88
[2020-12-23 08:38] LABS: ALBUMIN 2.4 gm/dl (3.1-4.5); ALKALINE PHOSPHATASE 93 U/L (45-117); BUN 11 mg/dl (7-24); CHLORIDE 106 mmol/L (98-107); CREATININE 0.37 mg/dL (0.55-1.02); POTASSIUM 3.5 mmol/L (3.5-5.1); SGOT/AST 11 IU/L (3-35); SGPT/ALT 8 U/L (12-78); SODIUM 137 mmol/L (136-145)
[2020-12-23 12:00] VITALS: BP 134/8
[2020-12-23 16:00] VITALS: BP 133/77
[2020-12-23 20:00] VITALS: BP 129/95
[2020-12-24] VITALS: BP 120/86
[2020-12-24 06:05] LABS: ALBUMIN 2.3 gm/dl (3.1-4.5); ALKALINE PHOSPHATASE 92 U/L (45-117); BUN 12 mg/dl (7-24); CHLORIDE 107 mmol/L (98-107); CREATININE 0.35 mg/dL (0.55-1.02); POTASSIUM 3.6 mmol/L (3.5-5.1); SGOT/AST 11 IU/L (3-35); SGPT/ALT 7 U/L (12-78); SODIUM 139 mmol/L (136-145); TOTAL PROTEIN 5.9 gm/dL (6.4-8.2)
[2020-12-24 08:00] VITALS: BP 137/92
[2020-12-24 12:00] VITALS: BP 135/88
[2020-12-24 16:00] VITALS: BP 144/81
[2020-12-24 20:00] VITALS: BP 122/85
[2020-12-25] VITALS: BP 123/82
[2020-12-25 06:17] LABS: ALBUMIN 2.3 gm/dl (3.1-4.5); BUN 10 mg/dl (7-24); CHLORIDE 108 mmol/L (98-107); SODIUM 138 mmol/L (136-145)
[2020-12-25 06:21] LABS: ALKALINE PHOSPHATASE 96 U/L (45-117); CREATININE 0.37 mg/dL (0.55-1.02); SGOT/AST 9 IU/L (3-35); SGPT/ALT 7 U/L (12-78); TOTAL PROTEIN 6.1 gm/dL (6.4-8.2)
[2020-12-25 08:00] VITALS: BP 117/91
[2020-12-25 12:00] VITALS: BP 135/73
[2020-12-25 16:00] VITALS: BP 125/87
[2020-12-25 20:00] VITALS: BP 116/75
[2020-12-26] VITALS: BP 132/82
[2020-12-26 06:59] LABS: ALBUMIN 2.4 gm/dl (3.1-4.5); ALKALINE PHOSPHATASE 101 U/L (45-117); BUN 11 mg/dl (7-24); CHLORIDE 110 mmol/L (98-107); CREATININE 0.31 mg/dL (0.55-1.02); POTASSIUM 4.1 mmol/L (3.5-5.1); SGOT/AST 17 IU/L (3-35); SGPT/ALT 11 U/L (12-78); SODIUM 139 mmol/L (136-145); TOTAL PROTEIN 6.2 gm/dL (6.4-8.2)
[2020-12-26 08:00] VITALS: BP 128/85
[2020-12-26] MEDS ORDERED: ERTAPENEM1 GM IV (11:17)
[2020-12-26 12:00] VITALS: BP 128/80
[2020-12-26 16:00] VITALS: BP 120/84
[2020-12-26 20:00] VITALS: BP 96/68
[2020-12-27] VITALS: BP 95/71
[2020-12-27 06:12] LABS: ALBUMIN 2.4 gm/dl (3.1-4.5); ALKALINE PHOSPHATASE 105 U/L (45-117); BUN 14 mg/dl (7-24); CHLORIDE 110 mmol/L (98-107); CREATININE 0.31 mg/dL (0.55-1.02); POTASSIUM 4.1 mmol/L (3.5-5.1); SGOT/AST 24 IU/L (3-35); SGPT/ALT 15 U/L (12-78); SODIUM 140 mmol/L (136-145); TOTAL PROTEIN 6.1 gm/dL (6.4-8.2)
[2020-12-27 08:00] VITALS: BP 105/64
[2020-12-27 12:00] VITALS: BP 89/58
[2020-12-27 16:00] VITALS: BP 91/64
[2020-12-27 20:00] VITALS: BP 90/56
[2020-12-28] VITALS: BP 109/64
[2020-12-28 07:24] LABS: ALBUMIN 2.5 gm/dl (3.1-4.5); ALKALINE PHOSPHATASE 119 U/L (45-117); BUN 21 mg/dl (7-24); CHLORIDE 109 mmol/L (98-107); CREATININE 0.32 mg/dL (0.55-1.02); POTASSIUM 4.3 mmol/L (3.5-5.1); SGOT/AST 23 IU/L (3-35); SGPT/ALT 18 U/L (12-78); SODIUM 137 mmol/L (136-145); TOTAL PROTEIN 6.4 gm/dL (6.4-8.2)
[2020-12-28 07:29] LABS: BASO # 0.1 10*3/uL (0.0-0.1); EOS # 0.9 10*3/uL (0.0-0.4); EOS % 8.6 % (1.0-4.0); HEMATOCRIT 35.2 % (37.0-47.0); LYMPH # 3.8 10*3/uL (1.3-4.4); LYMPH % 36.2 % (27.0-41.0); MEAN CORPUSCULAR HGB CONC 28.1 g/dl (33.0-37.0); MONO % 9.3 % (3.0-9.0); NEUT # 4.6 10*3/uL (2.3-7.9); PLATELET COUNT AUTOMATED 263 10*3/uL (130-400); RED BLOOD COUNT 4.51 10*6/uL (4.10-5.10); RED CELL DISTRI WIDTH 18.7 % (0-14.5); WHITE BLOOD COUNT 10.4 10*3/uL (4.8-10.8)
[2020-12-28 08:00] VITALS: BP 103/78
[2020-12-28] MEDS ORDERED: CLINIMIX E IV (09:38)
[2020-12-28] MEDS ORDERED: REGLAN5 MG PO (09:42)
[2020-12-28 12:00] VITALS: BP 107/60
== END 2020-12-28 15:10 | disposition home health service (06) | DRG 243 ==
LOC: ED 20:43 → 4E 12-21 00:55 → EDHOLD 12-21 00:55 → 4E 12-21 01:17
PROVIDERS: Internal Medicine; Registered Nurse; ADMIT Family Medicine; ATTEND Family Medicine
PROC: 02HV33Z Insertion of Infusion Device into Superior Vena Cava, Percutaneous Approach (ICD-10-PCS; 2020-12-21)
PROC: 3E0436Z Introduction of Nutritional Substance into Central Vein, Percutaneous Approach (ICD-10-PCS; principal; 2020-12-22)
DX: K21.9 Gastro-esophageal reflux disease without esophagitis (principal); N39.0 Urinary tract infection, site not specified; K28.9 Gastrojejunal ulcer, unspecified as acute or chronic, without hemorrhage or perforation; E43 Unspecified severe protein-calorie malnutrition; R00.0 Tachycardia, unspecified; E87.6 Hypokalemia; D50.9 Iron deficiency anemia, unspecified; D47.3 Essential (hemorrhagic) thrombocythemia; E87.8 Other disorders of electrolyte and fluid balance, not elsewhere classified; R73.9 Hyperglycemia, unspecified; E78.5 Hyperlipidemia, unspecified; R74.8 Abnormal levels of other serum enzymes; I10 Essential (primary) hypertension; F32.9 Major depressive disorder, single episode, unspecified; E55.9 Vitamin D deficiency, unspecified; E86.0 Dehydration; F41.9 Anxiety disorder, unspecified; B96.1 Klebsiella pneumoniae [K. pneumoniae] as the cause of diseases classified elsewhere; B95.2 Enterococcus as the cause of diseases classified elsewhere; B96.20 Unspecified Escherichia coli [E. coli] as the cause of diseases classified elsewhere; Z16.12 Extended spectrum beta lactamase (ESBL) resistance; Z90.3 Acquired absence of stomach [part of]; Z98.84 Bariatric surgery status; Z88.2 Allergy status to sulfonamides; Z88.8 Allergy status to other drugs, medicaments and biological substances; Z90.49 Acquired absence of other specified parts of digestive tract; Z90.79 Acquired absence of other genital organ(s); Z98.891 History of uterine scar from previous surgery; Z87.891 Personal history of nicotine dependence; Z80.8 Family history of malignant neoplasm of other organs or systems; Z83.3 Family history of diabetes mellitus; Z82.49 Family history of ischemic heart disease and other diseases of the circulatory system; Z86.16 Personal history of COVID-19; Z79.899 Other long term (current) drug therapy; Z68.26 Body mass index [BMI] 26.0-26.9, adult

== ENCOUNTER 2021-01-01 15:13 | Emergency (ER) | payer OTHER ==
[~2021-01-01] VITALS: Ht 154.9 cm; Wt 70.8 kg
[~2021-01-01 15:13] MED LIST changes: +CLINIMIX E IV; +ERTAPENEM1 GM IV
[2021-01-01 16:11] LABS: BASO # 0.1 10*3/uL (0.0-0.1); BASO % 1.2 % (0.0-1.0); EOS # 0.2 10*3/uL (0.0-0.4); EOS % 2.7 % (1.0-4.0); HEMATOCRIT 32.4 % (37.0-47.0); LYMPH # 2.8 10*3/uL (1.3-4.4); LYMPH % 35.8 % (27.0-41.0); MEAN CELL VOLUME 75.3 fl (81.0-99.0); MEAN CORPUSCULAR HGB 22.3 pg (27.0-31.0); MEAN CORPUSCULAR HGB CONC 29.6 g/dl (33.0-37.0); MEAN PLATELET VOLUME 9.8 fl (9.6-12.3); MONO # 0.9 10*3/uL (0.1-1.0); MONO % 11.3 % (3.0-9.0); NEUT # 3.8 10*3/uL (2.3-7.9); NEUT % 48.4 % (47.0-73.0); PLATELET COUNT AUTOMATED 254 10*3/uL (130-400); RED CELL DISTRI WIDTH 18.2 % (0-14.5); WHITE BLOOD COUNT 7.8 10*3/uL (4.8-10.8)
[2021-01-01 16:22] LABS: BILIRUBIN Negative (Negative); BLOOD Negative (Negative); CLARITY Clear (Clear); COLOR Yellow (Yellow); GLUCOSE Negative (Negative); KETONE Negative (Negative); LEUKO ESTERASE 3+ (Negative); NITRITE Negative (Negative); PH 7.5 (4.5-8.0)
[2021-01-01 16:27] LABS: ALBUMIN 2.8 gm/dl (3.1-4.5); ALKALINE PHOSPHATASE 128 U/L (45-117); BUN 21 mg/dl (7-24); CHLORIDE 106 mmol/L (98-107); POTASSIUM 4.2 mmol/L (3.5-5.1); SGOT/AST 28 IU/L (3-35); SGPT/ALT 28 U/L (12-78); SODIUM 135 mmol/L (136-145); TOTAL PROTEIN 6.8 gm/dL (6.4-8.2)
[2021-01-01 16:50] LABS: BACTERIA 2+; EPITHELIAL CELLS 21-30; WBC 51-100 wbc/hpf (0-5)
== END 2021-01-01 17:30 | disposition home or self-care (01) ==
LOC: ED 15:13
PROVIDERS: Emergency Medicine
DX: R11.2 Nausea with vomiting, unspecified (principal); I10 Essential (primary) hypertension; Z87.891 Personal history of nicotine dependence; Z90.49 Acquired absence of other specified parts of digestive tract; Z98.84 Bariatric surgery status; Z79.899 Other long term (current) drug therapy; Z88.1 Allergy status to other antibiotic agents; Z88.8 Allergy status to other drugs, medicaments and biological substances

== ENCOUNTER → 2021-01-03 | Outpatient (CLI) | payer OTHER | END | disposition home or self-care (01) | LOC: RAD 16:17 | PROVIDERS: ATTEND Family Medicine | DX: R05 Cough (principal); Z95.828 Presence of other vascular implants and grafts ==

== ENCOUNTER 2021-01-27 00:29 | Emergency (ER) | payer OTHER | END 2021-01-27 01:28 | disposition left against medical advice (07) | LOC: ED 00:29 | DX: R11.2 Nausea with vomiting, unspecified (principal); Z53.21 Procedure and treatment not carried out due to patient leaving prior to being seen by health care provider ==

== ENCOUNTER 2021-01-27 17:23 | Emergency (ER) | payer OTHER ==
[~2021-01-27] VITALS: Wt 77.6 kg
[2021-01-27 17:43] LABS: BASO # 0.1 10*3/uL (0.0-0.1); BASO % 0.9 % (0.0-1.0); EOS # 0.2 10*3/uL (0.0-0.4); EOS % 3.2 % (1.0-4.0); HEMATOCRIT 28.8 % (37.0-47.0); LYMPH # 2.1 10*3/uL (1.3-4.4); MEAN CELL VOLUME 74.4 fl (81.0-99.0); MEAN CORPUSCULAR HGB 21.4 pg (27.0-31.0); MEAN CORPUSCULAR HGB CONC 28.8 g/dl (33.0-37.0); MEAN PLATELET VOLUME 10.2 fl (9.6-12.3); MONO # 0.7 10*3/uL (0.1-1.0); MONO % 10.6 % (3.0-9.0); NEUT # 3.7 10*3/uL (2.3-7.9); NEUT % 54.2 % (47.0-73.0); PLATELET COUNT AUTOMATED 285 10*3/uL (130-400); RED BLOOD COUNT 3.87 10*6/uL (4.10-5.10); RED CELL DISTRI WIDTH 17.2 % (0-14.5); WHITE BLOOD COUNT 6.9 10*3/uL (4.8-10.8)
[2021-01-27 18:02] LABS: ALBUMIN 3.1 gm/dl (3.1-4.5); ALKALINE PHOSPHATASE 97 U/L (45-117); BUN 16 mg/dl (7-24); CHLORIDE 103 mmol/L (98-107); CREATININE 0.67 mg/dL (0.55-1.02); POTASSIUM 5.3 mmol/L (3.5-5.1); SGOT/AST 25 IU/L (3-35); SGPT/ALT 33 U/L (12-78); SODIUM 135 mmol/L (136-145); TOTAL PROTEIN 6.5 gm/dL (6.4-8.2)
[2021-01-27 18:05] LABS: TROPONIN I < 0.015 ng/ml (<0.045)
[2021-01-27 18:46] LABS: BUN 16 mg/dl (7-24); CHLORIDE 111 mmol/L (98-107); CREATININE 0.48 mg/dL (0.55-1.02); SODIUM 142 mmol/L (136-145)
[2021-01-27 18:49] LABS: POTASSIUM 3.6 mmol/L (3.5-5.1)
== END 2021-01-28 02:39 | disposition home or self-care (01) ==
LOC: ED 17:23
PROVIDERS: Emergency Medicine
DX: K20.90 Esophagitis, unspecified without bleeding (principal); R07.89 Other chest pain; R06.02 Shortness of breath; F41.9 Anxiety disorder, unspecified; F32.9 Major depressive disorder, single episode, unspecified; E78.5 Hyperlipidemia, unspecified; I10 Essential (primary) hypertension; Z98.84 Bariatric surgery status; Z88.2 Allergy status to sulfonamides; Z88.8 Allergy status to other drugs, medicaments and biological substances; Z79.899 Other long term (current) drug therapy; Z90.49 Acquired absence of other specified parts of digestive tract; Z98.890 Other specified postprocedural states; Z87.891 Personal history of nicotine dependence

== ENCOUNTER → 2021-03-18 | Outpatient (CLI) | payer OTHER | END | disposition home or self-care (01) | LOC: COVID19 15:58 | PROVIDERS: ATTEND Internal Medicine | DX: Z11.52 Encounter for screening for COVID-19 (principal) ==

== ENCOUNTER → 2021-03-31 | Outpatient (CLI) | payer OTHER ==
[~2021-03-31] MED LIST changes: +MACROBID100 M1 PO
== END | disposition home or self-care (01) ==
LOC: LAB 07:23
PROVIDERS: ATTEND Family Medicine
DX: R19.7 Diarrhea, unspecified (principal)

== ENCOUNTER 2021-04-18 14:17 | Emergency (ER) | payer OTHER ==
[~2021-04-18] VITALS: Wt 85.7 kg
[~2021-04-18 14:17] MED LIST changes: +VANCOMYCIN1.5 GM/15 IV
[2021-04-18 17:33] LABS: BASO # 0.1 10*3/uL (0.0-0.1); BASO % 0.7 % (0.0-1.0); EOS # 0.4 10*3/uL (0.0-0.4); EOS % 4.5 % (1.0-4.0); HEMATOCRIT 41.3 % (37.0-47.0); LYMPH % 36.3 % (27.0-41.0); MEAN CELL VOLUME 78.1 fl (81.0-99.0); MEAN CORPUSCULAR HGB 23.6 pg (27.0-31.0); MEAN CORPUSCULAR HGB CONC 30.3 g/dl (33.0-37.0); MEAN PLATELET VOLUME 8.9 fl (9.6-12.3); MONO # 0.8 10*3/uL (0.1-1.0); MONO % 9.2 % (3.0-9.0); NEUT % 48.7 % (47.0-73.0); PLATELET COUNT AUTOMATED 257 10*3/uL (130-400); RED BLOOD COUNT 5.29 10*6/uL (4.10-5.10); RED CELL DISTRI WIDTH 20.3 % (0-14.5); WHITE BLOOD COUNT 8.2 10*3/uL (4.8-10.8)
[2021-04-18 17:53] LABS: ACT PARTIAL THROMBO TIME 28.5 SECONDS (20.0-32.1); INTERNATIONAL NORM RATIO 0.9 (2.0-3.5)
[2021-04-18 17:55] LABS: ALBUMIN 2.9 gm/dl (3.1-4.5); ALKALINE PHOSPHATASE 178 U/L (45-117); BUN 10 mg/dl (7-24); CHLORIDE 107 mmol/L (98-107); CREATININE 0.57 mg/dL (0.55-1.02); LIPASE 84 U/L (73-393); POTASSIUM 4.2 mmol/L (3.5-5.1); SGOT/AST 29 IU/L (3-35); SGPT/ALT 76 U/L (12-78); SODIUM 139 mmol/L (136-145); TOTAL PROTEIN 6.8 gm/dL (6.4-8.2)
[2021-04-18 18:01] LABS: TROPONIN I < 0.015 ng/ml (<0.045)
== END 2021-04-18 20:14 | disposition home or self-care (01) ==
LOC: ED 14:17
PROVIDERS: Physician Assistant
DX: R07.89 Other chest pain (principal); R13.10 Dysphagia, unspecified; Z88.2 Allergy status to sulfonamides; Z88.8 Allergy status to other drugs, medicaments and biological substances; Z79.899 Other long term (current) drug therapy; Z87.891 Personal history of nicotine dependence

== ENCOUNTER 2021-10-08 10:36 | Emergency (ER) | payer OTHER ==
[~2021-10-08] VITALS: Wt 92.1 kg
[2021-10-08 11:55] LABS: BASO % 0.7 % (0.0-1.0); EOS # 0.2 10*3/uL (0.0-0.4); EOS % 2.8 % (1.0-4.0); HEMATOCRIT 41.3 % (37.0-47.0); LYMPH # 2.3 10*3/uL (1.3-4.4); LYMPH % 36.9 % (27.0-41.0); MEAN CELL VOLUME 78.8 fl (81.0-99.0); MEAN CORPUSCULAR HGB 24.6 pg (27.0-31.0); MEAN CORPUSCULAR HGB CONC 31.2 g/dl (33.0-37.0); MEAN PLATELET VOLUME 9.8 fl (9.6-12.3); MONO # 0.6 10*3/uL (0.1-1.0); NEUT % 49.3 % (47.0-73.0); PLATELET COUNT AUTOMATED 294 10*3/uL (130-400); RED BLOOD COUNT 5.24 10*6/uL (4.10-5.10); RED CELL DISTRI WIDTH 16.8 % (0-14.5); WHITE BLOOD COUNT 6.1 10*3/uL (4.8-10.8)
[2021-10-08 12:12] LABS: ALKALINE PHOSPHATASE 165 U/L (45-117); BUN 6 mg/dl (7-24); CHLORIDE 109 mmol/L (98-107); CREATININE 0.57 mg/dL (0.55-1.02); LIPASE 65 U/L (73-393); POTASSIUM 3.5 mmol/L (3.5-5.1); SGOT/AST 17 IU/L (3-35); SGPT/ALT 15 U/L (12-78); SODIUM 143 mmol/L (136-145); TOTAL PROTEIN 6.7 gm/dL (6.4-8.2)
[2021-10-08] MEDS ORDERED: ZOFRAN4 MG PO (14:45)
== END 2021-10-08 14:34 | disposition home or self-care (01) ==
LOC: ED 10:36
PROVIDERS: Physician Assistant
DX: R11.2 Nausea with vomiting, unspecified (principal); R10.13 Epigastric pain; Z88.2 Allergy status to sulfonamides; Z88.8 Allergy status to other drugs, medicaments and biological substances; Z90.49 Acquired absence of other specified parts of digestive tract; Z98.890 Other specified postprocedural states; Z98.51 Tubal ligation status; Z87.891 Personal history of nicotine dependence

== ENCOUNTER 2021-10-16 16:15 | Emergency (ER) | payer OTHER | END 2021-10-16 17:15 | disposition left against medical advice (07) | LOC: ED 16:15 | DX: R11.0 Nausea (principal); Z53.21 Procedure and treatment not carried out due to patient leaving prior to being seen by health care provider ==

== ENCOUNTER 2021-11-16 13:39 | Emergency (ER) | payer OTHER ==
[~2021-11-16] VITALS: Ht 154.9 cm; Wt 92.1 kg
[~2021-11-16 13:39] MED LIST changes: +REXULTI0.5 MG PO; +REXULTI2 MG PO
[2021-11-16 14:16] LABS: BASO # 0.1 10*3/uL (0.0-0.1); BASO % 0.7 % (0.0-1.0); EOS # 0.3 10*3/uL (0.0-0.4); EOS % 3.1 % (1.0-4.0); LYMPH % 31.8 % (27.0-41.0); MEAN CELL VOLUME 80.3 fl (81.0-99.0); MEAN CORPUSCULAR HGB 25.2 pg (27.0-31.0); MEAN CORPUSCULAR HGB CONC 31.4 g/dl (33.0-37.0); MEAN PLATELET VOLUME 9.7 fl (9.6-12.3); MONO # 0.7 10*3/uL (0.1-1.0); MONO % 7.3 % (3.0-9.0); NEUT # 5.3 10*3/uL (2.3-7.9); NEUT % 56.2 % (47.0-73.0); PLATELET COUNT AUTOMATED 285 10*3/uL (130-400); RED BLOOD COUNT 5.48 10*6/uL (4.10-5.10); RED CELL DISTRI WIDTH 17.6 % (0-14.5); WHITE BLOOD COUNT 9.4 10*3/uL (4.8-10.8)
[2021-11-16 14:26] LABS: ACT PARTIAL THROMBO TIME 29.5 SECONDS (20.0-32.1)
[2021-11-16 14:32] LABS: ALKALINE PHOSPHATASE 175 U/L (45-117); BUN 14 mg/dl (7-24); CHLORIDE 112 mmol/L (98-107); CREATININE 0.59 mg/dL (0.55-1.02); POTASSIUM 3.5 mmol/L (3.5-5.1); SGOT/AST 18 IU/L (3-35); SGPT/ALT 23 U/L (12-78); SODIUM 142 mmol/L (136-145); TOTAL PROTEIN 6.9 gm/dL (6.4-8.2)
== END 2021-11-16 17:30 | disposition home or self-care (01) ==
LOC: ED 13:39
PROVIDERS: Emergency Medicine
DX: R07.89 Other chest pain (principal); E78.5 Hyperlipidemia, unspecified; I10 Essential (primary) hypertension; Z88.1 Allergy status to other antibiotic agents; Z88.8 Allergy status to other drugs, medicaments and biological substances; Z79.899 Other long term (current) drug therapy; Z90.49 Acquired absence of other specified parts of digestive tract; Z98.890 Other specified postprocedural states; Z87.891 Personal history of nicotine dependence

== ENCOUNTER → 2022-04-08 | Outpatient (CLI) | payer OTHER ==
[~2022-04-08] MED LIST changes: +AMITRIPTYLINE100 M1 PO; +NYAMYC15 GM T; +NYSTATIN OINTME30 GM T; +OMNICEF300 MG PO; +TRINTELLIX20 MG PO
== END ==
LOC: RAD 16:26
PROVIDERS: ATTEND Family Medicine
DX: R05.1 Acute cough (principal); R42 Dizziness and giddiness

== ENCOUNTER 2022-04-10 10:50 | Emergency (ER) | payer OTHER ==
[~2022-04-10] VITALS: Ht 154.9 cm; Wt 95.7 kg
[2022-04-10 12:37] LABS: BASO # 0.1 10*3/uL (0.0-0.1); BASO % 0.7 % (0.0-1.0); EOS % 0.3 % (1.0-4.0); HEMATOCRIT 49.7 % (37.0-47.0); LYMPH # 1.9 10*3/uL (1.3-4.4); LYMPH % 21.9 % (27.0-41.0); MEAN CELL VOLUME 82.7 fl (81.0-99.0); MEAN CORPUSCULAR HGB 27.1 pg (27.0-31.0); MEAN CORPUSCULAR HGB CONC 32.8 g/dl (33.0-37.0); MEAN PLATELET VOLUME 9.4 fl (9.6-12.3); MONO # 0.6 10*3/uL (0.1-1.0); MONO % 6.7 % (3.0-9.0); NEUT # 6.1 10*3/uL (2.3-7.9); NEUT % 70.3 % (47.0-73.0); PLATELET COUNT AUTOMATED 376 10*3/uL (130-400); RED BLOOD COUNT 6.01 10*6/uL (4.10-5.10); RED CELL DISTRI WIDTH 17.1 % (0-14.5); WHITE BLOOD COUNT 8.8 10*3/uL (4.8-10.8)
[2022-04-10 12:53] LABS: ACT PARTIAL THROMBO TIME 30.8 SECONDS (20.0-32.1)
[2022-04-10 12:55] LABS: ALKALINE PHOSPHATASE 144 U/L (45-117); BUN 8 mg/dl (7-24); CHLORIDE 110 mmol/L (98-107); CREATININE 0.63 mg/dL (0.55-1.02); LIPASE 69 U/L (73-393); POTASSIUM 3.8 mmol/L (3.5-5.1); SGOT/AST 29 IU/L (3-35); SGPT/ALT 33 U/L (12-78); SODIUM 141 mmol/L (136-145)
[2022-04-10] MEDS ORDERED: ONDANSETRON4 MG SL (17:07)
== END 2022-04-10 17:20 | disposition home or self-care (01) ==
LOC: ED 10:50
PROVIDERS: Emergency Medicine
DX: R11.2 Nausea with vomiting, unspecified (principal); Z88.1 Allergy status to other antibiotic agents; Z88.8 Allergy status to other drugs, medicaments and biological substances; Z79.899 Other long term (current) drug therapy; Z98.890 Other specified postprocedural states; Z90.49 Acquired absence of other specified parts of digestive tract; Z87.891 Personal history of nicotine dependence

== ENCOUNTER 2022-04-14 13:58 | Inpatient (IN) | payer OTHER ==
[~2022-04-14] VITALS: Ht 154.9 cm; Wt 97.2 kg
[2022-04-14 14:38] VITALS: BP 149/105
[2022-04-14 15:42] VITALS: BP 140/92
[2022-04-14] MEDS ORDERED: VALTREX1000 MG PO (15:45)
[2022-04-14] MEDS ORDERED: LEADER NATUR1000 MCG PO (15:47)
[2022-04-14 16:33] LABS: BASO # 0.1 10*3/uL (0.0-0.1); BASO % 0.6 % (0.0-1.0); EOS # 0.3 10*3/uL (0.0-0.4); EOS % 3.5 % (1.0-4.0); HEMATOCRIT 44.7 % (37.0-47.0); LYMPH # 2.7 10*3/uL (1.3-4.4); LYMPH % 31.9 % (27.0-41.0); MEAN CELL VOLUME 83.4 fl (81.0-99.0); MEAN CORPUSCULAR HGB 27.2 pg (27.0-31.0); MEAN CORPUSCULAR HGB CONC 32.7 g/dl (33.0-37.0); MEAN PLATELET VOLUME 9.4 fl (9.6-12.3); MONO # 0.7 10*3/uL (0.1-1.0); NEUT # 4.7 10*3/uL (2.3-7.9); NEUT % 55.5 % (47.0-73.0); PLATELET COUNT AUTOMATED 249 10*3/uL (130-400); RED BLOOD COUNT 5.36 10*6/uL (4.10-5.10); WHITE BLOOD COUNT 8.5 10*3/uL (4.8-10.8)
[2022-04-14 16:46] LABS: ACT PARTIAL THROMBO TIME 28.5 SECONDS (20.0-32.1)
[2022-04-14 16:51] LABS: ALKALINE PHOSPHATASE 117 U/L (45-117); BUN 7 mg/dl (7-24); CHLORIDE 111 mmol/L (98-107); CREATININE 0.44 mg/dL (0.55-1.02); LIPASE 79 U/L (73-393); POTASSIUM 3.8 mmol/L (3.5-5.1); SGOT/AST 12 IU/L (3-35); SGPT/ALT 17 U/L (12-78); SODIUM 143 mmol/L (136-145); TOTAL PROTEIN 6.4 gm/dL (6.4-8.2)
[2022-04-14 18:21] VITALS: BP 144/88
[2022-04-14 20:12] LABS: BILIRUBIN Negative (Negative); BLOOD Negative (Negative); CLARITY Cloudy (Clear); COLOR Yellow (Yellow); GLUCOSE Negative (Negative); KETONE Negative (Negative); LEUKO ESTERASE 1+ (Negative); NITRITE Negative (Negative); PH 6.5 (4.5-8.0); SPECIFIC GRAVITY 1.015 (1.001-1.030)
[2022-04-14 20:27] LABS: EPITHELIAL CELLS TNTC
[2022-04-14 20:30] LABS: BACTERIA 3+
[2022-04-15] VITALS: BP 153/96
[2022-04-15 04:29] LABS: BASO % 0.7 % (0.0-1.0); EOS % 1.1 % (1.0-4.0); HEMATOCRIT 46.1 % (37.0-47.0); LYMPH # 0.8 10*3/uL (1.3-4.4); LYMPH % 28.8 % (27.0-41.0); MEAN CELL VOLUME 83.8 fl (81.0-99.0); MEAN CORPUSCULAR HGB 27.3 pg (27.0-31.0); MEAN CORPUSCULAR HGB CONC 32.5 g/dl (33.0-37.0); MEAN PLATELET VOLUME 9.3 fl (9.6-12.3); MONO # 0.1 10*3/uL (0.1-1.0); MONO % 3.4 % (3.0-9.0); NEUT # 1.8 10*3/uL (2.3-7.9); NEUT % 65.6 % (47.0-73.0); PLATELET COUNT AUTOMATED 225 10*3/uL (130-400); RED CELL DISTRI WIDTH 15.9 % (0-14.5); WHITE BLOOD COUNT 2.7 10*3/uL (4.8-10.8)
[2022-04-15 04:50] VITALS: BP 153/96
[2022-04-15 04:51] LABS: ALKALINE PHOSPHATASE 480 U/L (45-117); BUN 7 mg/dl (7-24); CHLORIDE 108 mmol/L (98-107); CHOLESTEROL 203 mg/dL (<200); CREATININE 0.63 mg/dL (0.55-1.02); POTASSIUM 4.1 mmol/L (3.5-5.1); SGPT/ALT 824 U/L (12-78); SODIUM 144 mmol/L (136-145); TRIGLYCERIDES 138 mg/dl (<150)
[2022-04-15 05:04] LABS: FREE T4 0.84 ng/dl (0.76-1.46); LDL CHOLESTEROL 119 mg/dL (9-159); THYROID STIM HORMONE (HS) 0.185 uIU/ml (0.358-4.75)
[2022-04-15 05:09] LABS: SGOT/AST 2027 IU/L (3-35)
[2022-04-15 08:00] VITALS: BP 157/93
[2022-04-15 12:00] VITALS: BP 156/99; BP 167/67
[2022-04-15 15:20] VITALS: BP 152/91
[2022-04-15 20:00] VITALS: BP 153/86
[2022-04-16] VITALS (9 sets, daily range): BP systolic 120–174; BP diastolic 76–101
[2022-04-16 06:07] LABS: HBSAG Negative (Negative); HEP B CORE AB, IGM Negative (Negative); HEPATITIS C ANTIBODY <0.1 (0.0-0.9)
[2022-04-16 07:28] LABS: BASO % 0.1 % (0.0-1.0); HEMATOCRIT 41.4 % (37.0-47.0); LYMPH # 1.2 10*3/uL (1.3-4.4); LYMPH % 17.5 % (27.0-41.0); MEAN CELL VOLUME 82.3 fl (81.0-99.0); MEAN CORPUSCULAR HGB 27.4 pg (27.0-31.0); MEAN CORPUSCULAR HGB CONC 33.3 g/dl (33.0-37.0); MEAN PLATELET VOLUME 9.8 fl (9.6-12.3); MONO # 0.3 10*3/uL (0.1-1.0); MONO % 4.1 % (3.0-9.0); NEUT # 5.3 10*3/uL (2.3-7.9); NEUT % 77.9 % (47.0-73.0); PLATELET COUNT AUTOMATED 265 10*3/uL (130-400); RED BLOOD COUNT 5.03 10*6/uL (4.10-5.10); RED CELL DISTRI WIDTH 15.7 % (0-14.5); WHITE BLOOD COUNT 6.9 10*3/uL (4.8-10.8)
[2022-04-16 09:42] LABS: CHLORIDE 108 mmol/L (98-107); POTASSIUM 3.9 mmol/L (3.5-5.1); SODIUM 141 mmol/L (136-145)
[2022-04-16 09:53] LABS: BILIRUBIN Negative (Negative); BLOOD Negative (Negative); CLARITY Clear (Clear); COLOR Yellow (Yellow); GLUCOSE Negative (Negative); KETONE Negative (Negative); LEUKO ESTERASE Negative (Negative); NITRITE Negative (Negative); SPECIFIC GRAVITY 1.015 (1.001-1.030)
[2022-04-16 09:55] LABS: ALKALINE PHOSPHATASE 407 U/L (45-117); BUN 8 mg/dl (7-24); CREATININE 0.48 mg/dL (0.55-1.02); SGOT/AST 545 IU/L (3-35); SGPT/ALT 628 U/L (12-78); TOTAL PROTEIN 6.5 gm/dL (6.4-8.2)
[2022-04-16 10:20] LABS: BACTERIA 2+; YEAST 1+
[2022-04-17] VITALS: BP 123/69
[2022-04-17 06:34] LABS: BASO % 0.2 % (0.0-1.0); HEMATOCRIT 40.1 % (37.0-47.0); LYMPH # 1.5 10*3/uL (1.3-4.4); LYMPH % 14.4 % (27.0-41.0); MEAN CELL VOLUME 83.2 fl (81.0-99.0); MEAN CORPUSCULAR HGB 27.6 pg (27.0-31.0); MEAN CORPUSCULAR HGB CONC 33.2 g/dl (33.0-37.0); MEAN PLATELET VOLUME 9.7 fl (9.6-12.3); MONO # 0.5 10*3/uL (0.1-1.0); MONO % 4.9 % (3.0-9.0); NEUT # 8.6 10*3/uL (2.3-7.9); PLATELET COUNT AUTOMATED 261 10*3/uL (130-400); RED BLOOD COUNT 4.82 10*6/uL (4.10-5.10); RED CELL DISTRI WIDTH 15.7 % (0-14.5); WHITE BLOOD COUNT 10.7 10*3/uL (4.8-10.8)
[2022-04-17 06:42] LABS: ALKALINE PHOSPHATASE 295 U/L (45-117); BUN 11 mg/dl (7-24); CHLORIDE 109 mmol/L (98-107); CREATININE 0.53 mg/dL (0.55-1.02); POTASSIUM 3.8 mmol/L (3.5-5.1); SGOT/AST 143 IU/L (3-35); SGPT/ALT 374 U/L (12-78); SODIUM 145 mmol/L (136-145)
[2022-04-17 08:00] VITALS: BP 164/94
[2022-04-17] MEDS ORDERED: METOCLOPRAMIDE10 M1 PO (11:13)
[2022-04-17] MEDS ORDERED: Carafate1 GM PO (11:13)
== END 2022-04-17 11:49 | disposition home or self-care (01) | DRG 254 ==
LOC: ED 13:58 → 4E 19:24 → EDHOLD 19:24 → 4E 04-15 04:41
PROVIDERS: Emergency Medicine; Family Medicine; Internal Medicine; Student in an Organized Health Care Education/Training Program; ADMIT Emergency Medicine; ATTEND Emergency Medicine
PROC: 0DJ08ZZ Inspection of Upper Intestinal Tract, Via Natural or Artificial Opening Endoscopic (ICD-10-PCS; principal; 2022-04-16)
DX: K31.84 Gastroparesis (principal); K29.70 Gastritis, unspecified, without bleeding; I10 Essential (primary) hypertension; E87.8 Other disorders of electrolyte and fluid balance, not elsewhere classified; R65.10 Systemic inflammatory response syndrome (SIRS) of non-infectious origin without acute organ dysfunction; E44.0 Moderate protein-calorie malnutrition; R73.9 Hyperglycemia, unspecified; B02.9 Zoster without complications; F41.9 Anxiety disorder, unspecified; F32.9 Major depressive disorder, single episode, unspecified; E78.5 Hyperlipidemia, unspecified; R63.8 Other symptoms and signs concerning food and fluid intake; E78.00 Pure hypercholesterolemia, unspecified; D72.819 Decreased white blood cell count, unspecified; E55.9 Vitamin D deficiency, unspecified; N12 Tubulo-interstitial nephritis, not specified as acute or chronic; E66.9 Obesity, unspecified; K75.0 Abscess of liver; Z98.84 Bariatric surgery status; Z88.2 Allergy status to sulfonamides; Z88.8 Allergy status to other drugs, medicaments and biological substances; Z86.16 Personal history of COVID-19; Z90.49 Acquired absence of other specified parts of digestive tract; Z90.3 Acquired absence of stomach [part of]; Z98.891 History of uterine scar from previous surgery; Z80.8 Family history of malignant neoplasm of other organs or systems; Z78.9 Other specified health status; Z87.11 Personal history of peptic ulcer disease; Z68.41 Body mass index [BMI] 40.0-44.9, adult

== ENCOUNTER → 2022-09-05 | Outpatient (CLI) | payer OTHER ==
[~2022-09-05] MED LIST changes: +LEADER NATUR1000 MCG PO; +METOCLOPRAMIDE10 M1 PO; +ONDANSETRON HYDR4 M1 PO; +VALTREX1000 MG PO
[2022-09-05 12:35] LABS: BASO # 0.1 10*3/uL (0.0-0.1); BASO % 0.9 % (0.0-1.0); EOS # 0.2 10*3/uL (0.0-0.4); EOS % 2.6 % (1.0-4.0); HEMATOCRIT 43.3 % (37.0-47.0); LYMPH # 2.7 10*3/uL (1.3-4.4); LYMPH % 34.9 % (27.0-41.0); MEAN CELL VOLUME 84.4 fl (81.0-99.0); MEAN CORPUSCULAR HGB 27.7 pg (27.0-31.0); MEAN CORPUSCULAR HGB CONC 32.8 g/dl (33.0-37.0); MEAN PLATELET VOLUME 8.9 fl (9.6-12.3); MONO # 0.7 10*3/uL (0.1-1.0); MONO % 8.6 % (3.0-9.0); NEUT # 4.1 10*3/uL (2.3-7.9); NEUT % 52.6 % (47.0-73.0); PLATELET COUNT AUTOMATED 310 10*3/uL (130-400); RED BLOOD COUNT 5.13 10*6/uL (4.10-5.10); RED CELL DISTRI WIDTH 15.3 % (0-14.5); WHITE BLOOD COUNT 7.8 10*3/uL (4.8-10.8)
[2022-09-05 13:20] LABS: ALKALINE PHOSPHATASE 136 U/L (46-116); BUN 12 mg/dl (9-23); CHLORIDE 104 mmol/L (98-107); POTASSIUM 4.1 mmol/L (3.4-5.1); SGPT/ALT 28 U/L (10-49); TOTAL PROTEIN 6.9 gm/dL (6.0-8.0)
== END | disposition home or self-care (01) ==
LOC: LAB 12:14
PROVIDERS: ATTEND Internal Medicine
DX: R11.2 Nausea with vomiting, unspecified (principal)

== ENCOUNTER 2022-10-05 15:07 | Emergency (ER) | payer OTHER ==
[~2022-10-05] VITALS: Ht 154.9 cm; Wt 96.6 kg
[2022-10-05] MEDS ORDERED: ZITHROMAX500 MG PO (17:31)
[2022-10-05] MEDS ORDERED: PROVENTIL HFA6.7 GM INH (17:31)
[2022-10-05] MEDS ORDERED: MEDROL DOSEPAK4 MG PO (17:31)
== END 2022-10-05 17:51 | disposition home or self-care (01) ==
LOC: ED 15:07
DX: J06.9 Acute upper respiratory infection, unspecified (principal); F32.A Depression, unspecified; I10 Essential (primary) hypertension; F41.9 Anxiety disorder, unspecified; E78.5 Hyperlipidemia, unspecified; E87.6 Hypokalemia; Z96.652 Presence of left artificial knee joint; D64.9 Anemia, unspecified; Z88.2 Allergy status to sulfonamides; Z88.8 Allergy status to other drugs, medicaments and biological substances; Z90.49 Acquired absence of other specified parts of digestive tract; Z98.890 Other specified postprocedural states; Z98.51 Tubal ligation status; Z87.891 Personal history of nicotine dependence